=== PATIENT | male | born 1945 | race Caucasian/White ===

== ENCOUNTER 2024-08-20 17:53 | Inpatient (IN) | payer MEDICARE, OTHER, SELFPAY ==
[2024-08-20] VITALS (7 sets, daily range): BP systolic 146–178; BP diastolic 68–92; BMI 30.3; BMI 30.9
[2024-08-20 12:19] LABS: % Basophils 0.7 % (0-2); % Immature Granulocytes 0.4 % (0-0.5); % Lymphocytes 8.6 % (20.5-51.1); % Monocytes 8.1 % (1.7-9.3); % Neutrophils 78.2 % (42.2-75.2); Absolute Basophils 0.1 10^3/uL (0-0.2); Absolute Eosinophils 0.4 10^3/uL (0-0.7); Absolute Lymphocytes 0.9 10^3/uL (1.2-3.4); Absolute Monocytes 0.9 10^3/uL (0.1-0.6); Absolute Neutrophils 8.3 10^3/uL (1.4-6.5); Hematocrit 41.4 % (39.0-52.0); Hemoglobin 14.2 g/dL (13.0-18.0); Mean Corp Hgb Conc. 34.3 g/dL (33.0-37.0); Mean Corpuscular Hgb 33.8 pg (27.0-31.0); Mean Corpuscular Volume 98.6 fL (80.0-94.0); Mean Platelet Volume 9.8 fL (7.4-10.4); Nucleated Red Blood Cells % 0 % (-); Platelet Count 221 10^3/uL (130-400); Red Cell Dist. Width 13.3 % (11.5-14.5); White Blood Cell Count 10.6 10^3/uL (4.8-10.8)
[2024-08-20 12:26] LABS: ALT (SGPT) 20 U/L (0-50); AST (SGOT) 22 U/L (17-59); Albumin 4.2 g/dl (3.5-5.0); Alkaline Phosphatase 120 U/L (38-126); Blood Urea Nitrogen 14 mg/dl (9-20); Calcium 9.4 mg/dl (8.4-10.2); Carbon Dioxide 21 mmol/L (22-30); Chloride 106 mmol/L (98-107); Glucose 99 mg/dl (70-99); Sodium 140 mmol/L (135-145); Total Protein 6.7 g/dl (6.3-8.2); eGFR > 60.00
--- NOTE | 2024-08-20 14:10 | ED.GENMED ---
History of Present Illness
General
Chief Complaint: Skin Problem
Source: patient and spouse
Exam Limitations: none
Time Seen by Provider: 08/20/24 13:38
History of Present Illness
History of Present Illness:
79yoM with a history of prior CVA, hypertension, hyperlipidemia, and CLL presenting with his for evaluation of right foot and leg redness ongoing x 3 weeks. He has chronic R leg swelling. He started with drainage and redness around his R great
toe several weeks ago which has progressed to foot/lower leg redness. states that he is having intermittent blistering of the foot. Patient has been seen by his PCP several times for the same. He is currently on his third round of
antibiotics for his infection. He was initially placed on Augmentin which was followed by doxycycline/mupirocin. Antibiotics were switched to Levaquin 3 days ago based on a wound culture that grew out Enterobacter cloacae. He has had no
improvement on Levaquin and has taken 3 doses thus far. He was seen again by his PCP today who sent him to the ED for evaluation. Patient is otherwise asymptomatic and denies any fevers or chills.
Past History
Past History
ED Past Medical History: Cancer (CLL), CVA, HTN, Hypercholesterolemia and Hypothyroidism
ED Past Surgical History: Negative Cardiac
Social History
Tobacco: Non-smoker
Alcohol: None
Drug: None
Personal:
Living: with family
Employment: Retired
Family History
Family History: Other (Noncontributory)
Phy Exam
Physical Exam
Physical Exam:
Erythema and warmth noted throughout dorsum of R foot and anterior lower leg. Wound noted to the lateral aspect of the lower leg. No fluctuance or crepitus noted.
General Physical Exam
General Presentation: well appearing and no apparent distress
General age: appears stated age
General Skin: warm and dry
General Habitus: normal
General Mental: alert
ENT Exam
ENT Exam: normocephalic
Pulmonary Exam
Pulmonary Exam: no respiratory distress
Skin Exam
Skin Exam: warm/dry
Psychiatric Exam
Psychiatric Exam: normal mood/affect
Course
Orders/Labs/Results
Orders:
Orders
08/20/24 12:04
Complete Blood Count/With Diff Urgent
Comprehensive Metabolic Panel Urgent
08/20/24 14:03
Cefepime HCl [Maxipime] 2,000 mg IV NOW STA
CR Foot - Right Min 3 Views Urgent
Comment:
Reason For Exam: Redness, swelling
Venous Doppler Lwr Ext Rt [US Periph Venous LOWER Ext RT] Urgent
Comment:
Reason For Exam: R leg swelling
08/20/24 14:53
CRP [C-Reactive Protein] Urgent
ESR [Erythrocyte Sed Rate] Urgent
08/20/24 17:43
Admit/Transfer Patient As Directed
Co-Sign Provider:
Level of Care: Inpatient admission
Assign to:: Medical/Surgical
Physician / Group: murtaza
Diagnosis: left LE cellulitis
Reason for Hospitalization: left LE cellultis
Expected length of stay greater than two midnights?: Yes
ELOS- Estimated Length of Stay in days: 3
I certify the patient meets the requirements for IP care: Yes
PRN Pain Medication Management As Directed
May give lesser potent ordered pain med per pt: Yes
preference::
Protocol:: Medication orders for pain may be administered in a
manner that supports deferring to patient preference
when the pt is:
- Requesting an ordered lesser potent pain medication.
Least to most potent pain medications are defined
as: acetaminophen < NSAID < tramadol < opioids
(morphine, oxycodone, hydromorphone).
- Requesting a lesser dose of the same medication IF
ORDERED.
- Requesting a less intrusive route of administration
if both routes are prescribed by the provider (PO <
IV).
08/20/24 17:45
Code Status As Directed
Resuscitation Status: Full Code
08/20/24 17:51
PODIATRY CONSULT Routine
Consulting Provider: Nathaly Rollins
Was physician already notified: Yes
Abnormal Lab Results
08/20/24
12:04
RBC 4.20 L 10^6/uL
(4.70-6.10)
MCV 98.6 H fL
(80.0-94.0)
MCH 33.8 H pg
(27.0-31.0)
Absolute Neuts (auto) 8.3 H 10^3/uL
(1.4-6.5)
Absolute Lymphs (auto) 0.9 L 10^3/uL
(1.2-3.4)
Absolute Monos (auto) 0.9 H 10^3/uL
(0.1-0.6)
Neutrophils % 78.2 H %
(42.2-75.2)
Lymphocytes % 8.6 L %
(20.5-51.1)
Carbon Dioxide 21 L mmol/L
(22-30)
08/20/24 12:04
08/20/24 12:04
Vital Signs
Initial and Last Documented VS:
Initial Vital Signs
Temp Pulse Resp BP Pulse Ox
98.1 F 108 20 178/92 95
08/20/24 11:56 08/20/24 11:56 08/20/24 11:56 08/20/24 11:56 08/20/24 11:56
Last Documented Vital Signs
Temp Pulse Resp BP Pulse Ox
98.1 F 102 22 161/82 93
08/20/24 16:06 08/20/24 19:25 08/20/24 19:25 08/20/24 18:17 08/20/24 18:17
MDM/Problems Addressed
Differential Diagnosis Includes:
79yoM here with R foot/leg redness x 3 weeks. Has been on multiple rounds of abx without improvement. Currently on Levaquin x 3 days. Sent in by PCP. No f/c. He is afebrile and hemodynamically stable. He is well appearing in no distress. Erythema
and warmth noted on exam. RLE is neurovascularly intact. Differential diagnosis includes but is not limited to: cellulitis, osteomyelitis, DVT, no evidence of NSTI
Initial ED plan: Labs obtained in triage and white count is normal. Will check ESR/CRP, R foot x-rays, and venous duplex. IV cefepime ordered based on wound culture susceptibilities. He will require admission for failure of outpatient treatment.
*Critical Care Note
Total Time (30-74mins, 75-104mins- exclusive of procedures): Not Applicable
ED Attending Note
-
Portions of this chart may have been created with voice recognition software.� Occasional wrong word or��sound alike� substitutions may have occurred due to the inherent limitations of voice recognition software.
Discharge Plan
Departure
Patient Disposition: Admit
Date of Disposition: 08/20/24
Time of Disposition: 17:21
Presentation/result/management discussed w/ accepting MD/DO: Hospitalist
Discharge Problem:
Cellulitis of right foot
Interventions
Interventions:
*Risk Screen - Suicide Last Done: 08/20/24 14:54
*General Assessment Last Done: 08/20/24 14:54
*Neglect/Abuse Screening Last Done: 08/20/24 14:54
ED- Fall Risk Assessment Last Done: 08/20/24 16:39
*ED COVID-19 Vaccine History Last Done: 08/20/24 14:54
ED-Skin Assessment Last Done: 08/20/24 16:39
Discharge Date and Time
Discharge Date/Time: 08/20/24 19:59
[2024-08-20] MEDS: MAXIPIME 2000 MG IV ×2 (15:03→21:35)
[2024-08-20 15:29] LABS: Erythrocyte Sed Rate 9 mm/hour (0-20)
--- NOTE | 2024-08-20 16:06 | EDRN ---
EDT reported pt did not look well. Pt told this RN that he is nauseous and feels feverish. Pt shaking on the stretcher, unable to sit still. Oral temp=98.1. EDT placed pt on bedpan. EDT to move pt from #35 to #38. Jenna Hawley, CALENDERING SUPERVISOR informed.
--- NOTE | 2024-08-20 16:42 | EDRN ---
Pt's says he has had problems with RLE swelling/redness x 3 years. Pt has been on multiple abx past 3 weeks and doctor concerned pt is not improving and may need IV abx so pt came to ED. Pt does not ambulate. Pt denies cp, sob, abd pain, n/v
(now), fever/chills. Pt has chronic cough. Pt has naylor for approximately 1 year.
--- NOTE | 2024-08-20 17:22 | HPS.HSE ---
Addendum entered and electronically signed by Leeroy Garcia DO 08/20/24 18:01:
Patient seen and examined independently. Agree with findings and plan as set forth by ELZBIETA Brand.
Patient is a 79y M with PMH significant for R hemiparesis / prior CVA, chronic Barrios, hypertension and CLL who presents to ED complaining of R foot pain, swelling and redness for the past 3 weeks or so. Symptoms started with drainage around the
R great toe nail and have since spread to include the entire foot and extending above the ankle. Patient has been evaluated as an outpatient and taken multiple courses of abx in the past 3 weeks. Most recently changed to levofloxacin for
outpatient skin surface culture that reportedly grew Enterococcus. Despite abx treatment, his symptoms have not improved.
Patient has no systemic complaints, fevers / chills, etc.
Ass:
Right Foot Cellulitis - Failure of Outpatient Therapy
Onychololysis all nails
Chronic Venous Stasis Edema
ASCVD
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
CLL in Remission
Benign Hypertension
Iron Deficiency Anemia
Plan:
Admit for further evaluation and treatment.
IV abx with cefepime for now.
ID and Podiatry evaluations for additional recommendations.
Maintain Barrios.
Continue other usual outpatient medications.
Original Note:
Family Physician
-
Family Physician: ELZBIETA Jensen
Chief Complaint
-
right LE cellulitis
History of Present Illness
79yoM with a history of prior CVA, hypertension, hyperlipidemia, and CLL presenting with his for evaluation of right foot and leg redness ongoing x 3 weeks. He has chronic b/l Le edema. He started with a drainage and redness around his R great
toe several weeks ago which has progressed to foot/lower leg redness. states that he is having intermittent blistering of the foot. His stool was cultured by his PCP. patient has been on three different abx for past three weeks, with no
relief in his symptoms. Patient denied any headache, dizziness, syncopal episode patient denied any fever, chills, chest pain, short of breath. Patient denied any abdominal pain, nausea, vomiting, diarrhea. Patient denied dysuria hematuria.
Patient received IV cefepime in ER. Admitted for further management
Medical History
Past Medical History
Past Medical History: Reports Other
Additional Past Medical History:
DVT
Iron deficiency anemia
Hypertension
Chronic lymphocytic leukemia
Hyperlipidemia
CVA
Depression
Thyroid nodule
Past Surgical History: Reports Other
Additional Past Surgical History:
Cardiac stents
Carotid stent
Rectal hernia repair
Left knee procedure
Cataract surgery
TURP
Social History
Tobacco: Former Smoker
Alcohol: None
Drug: None
Personal:
Living: With Family
Family History
Family History: Not pertinent
Allergies / Home Medications
Allergies reflects when Allergies were last updated in [facility].
Home Medications with original date entered in [facility]
Allergy/Medication List:
Allergies
Allergy/AdvReac Type Severity Reaction Status Date / Time
No Known Allergies Allergy Verified 06/08/22 17:40
Home Medications
amlodipine 5 mg tablet 5 mg PO DAILY Blood pressure 08/01/21
aspirin 81 mg chewable tablet 81 mg PO DAILY Blood clot prevention/tx 08/01/21
lisinopril 10 mg tablet 10 mg PO DAILY Blood pressure 08/01/21
tamsulosin 0.4 mg capsule 0.4 mg PO DAILY Urinary issue 08/01/21
ferrous sulfate 325 mg (65 mg iron) tablet (Feosol) 325 mg PO DAILY Supplement 10/09/21
cetirizine 10 mg tablet (Zyrtec) 10 mg PO BID Allergies 06/08/22
potassium chloride 20 mEq tablet,extended release(part/cryst) (Klor-Con M) 40 meq (2 x 20 mEq) PO BID #30 tabs 06/15/22
atorvastatin 80 mg tablet 80 mg PO DAILY 08/27/22
acetaminophen 500 mg tablet (Tylenol Extra Strength) 1,000 mg PO HS 08/20/24
fluoxetine 40 mg capsule 40 mg PO DAILY 08/20/24
levofloxacin 750 mg tablet 750 mg PO HS 08/20/24
Review of Systems
-
Constitutional: Reports No Symptoms
EENT: Reports No Symptoms
Respiratory: Reports No Symptoms
Cardiac: Reports No Symptoms
Abdomen/GI: Reports No Symptoms
: Reports No Symptoms
Musculoskeletal: Reports Edema (Bilateral lower extremities)
Skin: Reports Other (Right lower extremity is red and swollen. wound on the lateral aspect of right wournd)
Neurological: Reports No Symptoms
Endocrine: Reports No Symptoms
Hematologic/Lymphatic: Reports No Symptoms
Psych: Reports No Symptoms
Physical Exam
Vital Signs
Vital Signs
Temp Pulse Resp BP Pulse Ox
98.1 F 102 24 149/79 99
08/20/24 16:06 08/20/24 16:38 08/20/24 16:38 08/20/24 16:38 08/20/24 14:54
Physical Exam
General: Well Developed, Well Nourished and No Apparent Distress
HEENT: NormoCephalic, Moist mucous membranes and Atraumatic
Respiratory: Clear
Cardiac: S1/S2 and Regular Rhythm; No Murmur or Rub
GI: Soft, Non Tender, Non Distended and Normal Bowel Sounds; No Organomegaly
Rectal: Deferred by Provider
Musculoskeletal: No Clubbing and No Cyanosis
Skin: Rash and Other (b/l LE eema. right LE redn, swollen with lateral wound of the right foot. )
Neuro: AO x 3 and Nonfocal/grossly intact
Psych: Calm
Laboratory Results
-
08/20/24 12:04
08/20/24 12:04
Laboratory Results
Total Bilirubin 1.0 mg/dl (0.2-1.3) 08/20/24 12:04
AST 22 U/L (17-59) 08/20/24 12:04
ALT 20 U/L (0-50) 08/20/24 12:04
Alkaline Phosphatase 120 U/L (38-126) 08/20/24 12:04
Data Reviewed
-
Lab Data: Labs Reviewed by me
Impression/Plan
-
# Right foot/leg redness and swelling likely cellulitis
-Failed outpatient antibiotic therapy
-Patient is afebrile
-IV cefepime continued
-Foot x-ray pending
-Duplex pending
-podiatry consult
#Suprapubic Catheter due to BPH s/p TURP�
-Flomax
#CLL in remission
# CVA with right hemiparesis
-Statin continued
# Iron deficiency anemia
-Ferrous sulfate continued
# Depression
-Fluoxetine continued
#Benign Hypertension�
- Stable.�
-Lisinopril and Norvasc continued with hold parameters
DVT Prophylaxis:�Lovenox subcu
Code Status:� Full
[2024-08-20] MEDS: KCL 40 MEQ PO (21:33)
[2024-08-20] MEDS: LOVENOX 40 MG SC (21:33)
[2024-08-20] MEDS: STERILE WATER FOR INJECTION 10 ML IV (21:35)
[2024-08-21] MEDS: STERILE WATER FOR INJECTION 10 ML IV ×3 (06:26→21:15)
[2024-08-21] MEDS: MAXIPIME 2000 MG IV ×3 (06:26→21:14)
[2024-08-21 07:20] LABS: Hemoglobin 12.8 g/dL (13.0-18.0); Mean Corp Hgb Conc. 34.6 g/dL (33.0-37.0); Mean Corpuscular Volume 98.1 fL (80.0-94.0); Mean Platelet Volume 10.6 fL (7.4-10.4); Platelet Count 200 10^3/uL (130-400); Red Blood Cell Count 3.77 10^6/uL (4.70-6.10); Red Cell Dist. Width 13.2 % (11.5-14.5); White Blood Cell Count 9.5 10^3/uL (4.8-10.8)
--- NOTE | 2024-08-21 07:35 | PTCARENOTE ---
~2346 Pt reported 'felt like I was drowning' and 'lasted about 5 minutes.' Pt reported it happened 'about 15 minutes ago.' Pt reported 'I feel fine now.' Pt's HOB was raised above 30 degree at the time pt had this feeling. Pt's HOB was raised above
30 degrees the entire shift. Pt denied SOB, difficulty breathing, chest pain, lightheadedness, and dizziness. VS: BP 145/75, HR 80, O2 93% on RA, Temp 98.0, and Resp rate 20. Notified SAND CUTTING MACHINE OPERATOR So Carmina Lamas (Linda). No new orders at this time. Per SAND CUTTING MACHINE OPERATOR,
report if pt reports feeling again. Pt instructed to report if feeling like drowning. Plan of care ongoing.
Pt denies feeling like they are drowning during the rest of the night. Instructions reinforced to report if feeling like drowning happens again. HOB remains raised. AM RN aware. Plan of care ongoing.
[2024-08-21 07:42] LABS: Blood Urea Nitrogen 11 mg/dl (9-20); Calcium 8.5 mg/dl (8.4-10.2); Carbon Dioxide 25 mmol/L (22-30); Chloride 105 mmol/L (98-107); Estimated Creatinine Clearance 102 ml/min; Glucose 84 mg/dl (70-99); Potassium 3.5 mmol/L (3.5-5.1); Sodium 140 mmol/L (135-145); eGFR > 60.00
[2024-08-21 07:48] VITALS: BP 140/67
[2024-08-21] MEDS: DESENEX/MITRAZOL/ZEASORB 1 APPLIC TOPICAL ×2 (08:02→21:13)
[2024-08-21] MEDS: FEOSOL 325 MG PO (08:03)
[2024-08-21] MEDS: LOW STRENGTH ASPIRIN 81 MG PO (08:03)
[2024-08-21] MEDS: KCL 40 MEQ PO ×2 (08:03→21:14)
[2024-08-21] MEDS: LIPITOR 80 MG PO (08:03)
[2024-08-21] MEDS: NORVASC 5 MG PO (08:09)
[2024-08-21] MEDS: FLOMAX 0.4 MG PO (08:09)
[2024-08-21] MEDS: PROZAC 40 MG PO (08:09)
[2024-08-21] MEDS: ZESTRIL 10 MG PO (08:09)
--- NOTE | 2024-08-21 09:56 | W.CS.POD ---
Consult Summary - Podiatry
-
Pt seen for right foot/ leg cellulitis . Pt feels much better and relates the cellulitis and swelling are reduced by over 50% since last night in ED. He has not seen his senior interactive producer in many months.
decrease in swelling in right foot, no ulcers ingrown nail right hallux lateral aspect
most likely source of cellulitis is plantar aspect of right hallux due to a healing fissure in skin and ingrown nail
x-rays negative for osteomyelitis
negative DVT
nails were debrided
recommend triple antibiotic ointment and bandaid on right great toe
f/u in office in 1 week
consult will be dictated
[2024-08-21 13:10] VITALS: BP 144/71; PULSE 83
--- NOTE | 2024-08-21 13:30 | W.PN.HOSP.TC ---
Today's Communication/Plan
-
continue abx for today
check a1c, MRSA screen pending
Assessment / Plan
Assessment / Plan
1. Right leg cellulitis
Presumed lymphedema and chronic LE edema
-Failed outpatient antibiotic therapy
-Patient is afebrile
-Foot x-ray did not show any osteo
-Le venous doppler neg
-Podiatry evaluated and help appreciated
-on cefepime - clinically better
-asked spouse to bring in superficial skin culture collected in PCP office, verbal report of having some growth
2 Suprapubic Catheter
BPH s/p TURP�
-no urinary complains
-gets periodic change
3. CLL in remission
-initially diagnosed after noted to have LNpathy in inguinal area
-has been in remission
4. H/o CVA
-Right sided UE paresis and flexure contracture
-bed bound and need assistance with ADL
CVA with right hemiparesis -Statin continued
Iron deficiency anemia -Ferrous sulfate continued
Depression -Fluoxetine continued
Benign Hypertension�-Lisinopril and Norvasc continued with hold parameters
DVT Prophylaxis:�Lovenox subcu
Code Status:� Full
Total time spent : 51 mins
Anticipated Discharge: 24 - 48 hours
Subjective/Interval History
-
Date of Service: August 21, 2024
afebrile
improved LE erythema/swelling
no other problems
Objective Data
-
Labs:
Laboratory Results
08/21/24
05:27
WBC 9.5
Hgb 12.8 L
Hct 37.0 L
Plt Count 200
Sodium 140
Potassium 3.5
Chloride 105
Carbon Dioxide 25
BUN 11
Creatinine 0.8
Glucose 84
Calcium 8.5
Vital Signs:
Vital Signs
Temp Pulse Resp BP Pulse Ox
98.1 F 90 20 140/67 92
08/21/24 07:48 08/21/24 08:09 08/21/24 07:48 08/21/24 08:09 08/21/24 07:48
I&O
08/20/24 08/21/24 08/22/24
06:59 06:59 06:59
Intake Total 60 / 60
Output Total 4250 / 4250
Balance -4190 / -4190
Review of Systems
-
Respiratory: Reports No Symptoms
Cardiac: Reports No Symptoms
Abdomen/GI: Reports No Symptoms
Physical Exam
-
HEENT: Negative Oxygen
Respiratory: Clear to Auscultation; Negative Wheezes or Rhonchi
Cardiac: Regular Rhythm and S1/S2; Negative Murmur
GI: Soft, Nontender and Nondistended
Musculoskeletal: Edema, Right Lower Extrem, Edema, Left Lower Extrem and Other (Erythema upto mid leg level, dry scaling skin)
Neuro: Awake, Alert and Other (RUE paresis and flexion contracture, RLE weakness)
Psych: Calm
--- NOTE | 2024-08-21 15:46 | CM ---
CM met with pt and spouse
They resides in a [place] with ramp entrance with son,DIL and 8 y/o grandson
Pt is non ambulatory, WC bound
He is able to stand and pivot with a 1 person assist
R sided weakness, not able to propel
Requires feeding and personal care due to limited use of R arm/hands
Pt has a chronic suprapubic cath
[facility] changes monthly
No financial insecurities
PCP- Tonya Andersen
Rx- [facility]
Discharge Disposition- home with [facility]
[2024-08-21 16:00] VITALS: BP 113/68
[2024-08-21] MEDS: LOVENOX 40 MG SC (17:06)
[2024-08-21 22:43] VITALS: BP 143/65
[2024-08-22] MEDS: STERILE WATER FOR INJECTION 10 ML IV (05:42)
[2024-08-22] MEDS: MAXIPIME 2000 MG IV (05:44)
[2024-08-22 07:59] LABS: Hematocrit 38.7 % (39.0-52.0); Hemoglobin 13.2 g/dL (13.0-18.0); Mean Corp Hgb Conc. 34.1 g/dL (33.0-37.0); Mean Corpuscular Hgb 33.8 pg (27.0-31.0); Mean Platelet Volume 10.5 fL (7.4-10.4); Platelet Count 199 10^3/uL (130-400); Red Blood Cell Count 3.91 10^6/uL (4.70-6.10); Red Cell Dist. Width 13.6 % (11.5-14.5); White Blood Cell Count 7.6 10^3/uL (4.8-10.8)
[2024-08-22 08:00] VITALS: BP 169/85
[2024-08-22 08:22] LABS: Glycohemoglobin (HgbA1c) 5.3 % (4.0-5.6)
[2024-08-22 08:26] LABS: Blood Urea Nitrogen 15 mg/dl (9-20); Calcium 8.5 mg/dl (8.4-10.2); Carbon Dioxide 25 mmol/L (22-30); Chloride 105 mmol/L (98-107); Estimated Creatinine Clearance 90 ml/min; Glucose 90 mg/dl (70-99); Potassium 4.1 mmol/L (3.5-5.1); Sodium 139 mmol/L (135-145); eGFR > 60.00
--- NOTE | 2024-08-22 08:58 | VNURNOTE ---
Chart reviewed. Patient is current with [facility] nursing. Will continue to follow hospital course and DC plans.
[2024-08-22] MEDS: DESENEX/MITRAZOL/ZEASORB 1 APPLIC TOPICAL ×2 (09:28→19:30)
[2024-08-22] MEDS: PROZAC 40 MG PO (09:32)
[2024-08-22] MEDS: LIPITOR 80 MG PO (09:33)
[2024-08-22] MEDS: KCL 40 MEQ PO ×2 (09:33→19:30)
[2024-08-22] MEDS: ZESTRIL 10 MG PO (09:34)
[2024-08-22] MEDS: NORVASC 5 MG PO (09:34)
[2024-08-22] MEDS: LOW STRENGTH ASPIRIN 81 MG PO (09:35)
[2024-08-22] MEDS: FEOSOL 325 MG PO (09:35)
[2024-08-22] MEDS: FLOMAX 0.4 MG PO (09:35)
--- NOTE | 2024-08-22 12:25 | CM ---
manager programming reviewed patient's chart and plan is to home with [facility].
Plan; Home with [facility].
[2024-08-22] MEDS: AMOXIL 500 MG PO ×2 (13:40→22:39)
--- NOTE | 2024-08-22 14:41 | W.PN.HOSP.TC ---
Today's Communication/Plan
-
Switch to oral antibiotics
Assessment / Plan
Assessment / Plan
Impression
A 79 year old male, with past medical history of hypertension, stroke(residual right sided hemiparesis), BPH(s/p TURP) chronic naylor due to MERRITT,and CLL(remission), admitted for cellulitis of Right foot unresponsive to outdoor medications.
Assessment
Right leg cellulitis
Suprapubic Catheter secondary to BPH/MERRITT
CLL in remission
H/o CVA
Plan
Right leg cellulitis
-Foot x-ray did not show any osteomyelitis
-Leg venous doppler showed no deep venous thrombosis
-Podiatry evaluated and help appreciated
-No MRSA detected through nasal swab
-started on oral antibiotics today(amoxicillin and doxicycline)
-
Suprapubic Catheter secondary to BPH/MERRITT
BPH s/p TURP�
-no urinary complains
-gets periodic change
CLL in remission
Treated 2 years ago with chemotherapy
in remission
has 6 monthly follow-Up
H/o CVA
Needs assistance with activities of daily living
CVA with right hemiparesis -Statin continued
Iron deficiency anemia -Ferrous sulfate continued
Depression -Fluoxetine continued
Benign Hypertension�-Lisinopril and Norvasc continued with hold parameters
DVT Prophylaxis:�Lovenox subcutaneously
Code Status:� Full
Anticipated Discharge: 24 - 48 hours
Subjective/Interval History
-
Date of Service: August 22, 2024
Patient feels his le swelling has improved by 75 percent. He feels well and has no active issues
Objective Data
-
Labs:
Laboratory Results
08/22/24
07:01
WBC 7.6
Hgb 13.2
Hct 38.7 L
Plt Count 199
Sodium 139
Potassium 4.1
Chloride 105
Carbon Dioxide 25
BUN 15
Creatinine 0.9
Glucose 90
Calcium 8.5
Vital Signs:
Vital Signs
Temp Pulse Resp BP Pulse Ox
97.8 F 81 18 169/85 92
08/22/24 08:00 08/22/24 08:00 08/22/24 08:00 08/22/24 08:00 08/22/24 08:00
I&O
08/21/24 08/22/24 08/23/24
06:59 06:59 06:59
Intake Total 60 / 60 1320 / 1320
Output Total 4250 / 4250 1900 / 1900
Balance -4190 / -4190 -580 / -580
Review of Systems
-
All other systems: Reviewed and negative
Physical Exam
-
General: Well Developed, Well Nourished and No Apparent Distress
HEENT: Normocephalic, Atraumatic and Other
Respiratory: Clear to Auscultation and Crackles
Cardiac: Regular Rhythm and S1/S2
GI: Soft, Nontender and Normal Bowel Sounds
Genito-urinary: No Costovertebral Tender and Naylor (chronic naylor in place for MERRITT secondary to BPH)
Musculoskeletal: Edema, Right Upper Extrem, Edema, Left Upper Extrem and Other (cellulitis involving both feet, right more than left )
Skin: Other (onycholysis of all nails)
Neuro: Awake, Alert and No Motor Deficits (Right sided hemiparesis secondary to cerebrovascular infarct)
Hematologic / Lymphatic: No Lymphadenopathy
Psych: Calm
--- NOTE | 2024-08-22 14:47 | W.PN.UPDATE ---
Update Note
Progress Note Update
I saw and evaluated the patient. I reviewed the resident�s note and agree with findings and plan as documented in the resident�s note.
RLE swelling is better
afebrile in night
1. Right leg cellulitis
Presumed lymphedema and chronic LE edema
-Failed outpatient antibiotic therapy
-Patient is afebrile
-Foot x-ray did not show any osteo
-Le venous doppler neg
-Podiatry evaluated and help appreciated
-asked spouse to bring in superficial skin culture collected in PCP office, verbal report of having some growth
-Change abx to amxoicllin+doxycycline and monitor overnight
2 Suprapubic Catheter
BPH s/p TURP�
-no urinary complains
-gets periodic change
3. CLL in remission
-initially diagnosed after noted to have LNpathy in inguinal area
-has been in remission
4. H/o CVA
-Right sided UE paresis and flexure contracture
-bed bound and need assistance with ADL
CVA with right hemiparesis -Statin continued
Iron deficiency anemia -Ferrous sulfate continued
Depression -Fluoxetine continued
Benign Hypertension�-Lisinopril and Norvasc continued with hold parameters
DVT Prophylaxis:�Lovenox subcu
Code Status:� Full
[2024-08-22 15:00] VITALS: BP 137/72
--- NOTE | 2024-08-22 15:46 | VNURNOTE ---
Spoke with spouse Mrs Jeffrey. Confirmed she and pt would like to resume [facility] upon DC. Resumption referral placed in [facility].
--- NOTE | 2024-08-22 16:36 | W.DCSUMMARY ---
Discharge Summary
Discharge Data
Date of Admission: 08/20/24
Date of Discharge: 08/23/24
-
Pending Results: No
Hospital Course
Discharging Physician : Farhat Mckee, Dr. Brown
Principal Discharge diagnosis :
Right Foot Cellulitis possibly secondary to chronic lymphedema/venous stasis/Right big toe infection/ ingrown nail right
great toe, fissure right great toe.
Onycholysis all nails
Chronic Discharge diagnosis :
Chronic Venous Stasis Edema
ASCVD
Residual right Hemiparesis of CVA
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
CLL in Remission
Benign Hypertension
Iron Deficiency Anemia
Hospital Course :
Patient is a 79y M with PMH significant for R hemiparesis / prior CVA, chronic Barrios, hypertension and CLL who presented to ED complaining of R foot pain, swelling and redness for the past 3 weeks,progressively getting worse,started from big toe
and then involved right foot and lower leg.the most likely source of cellulitis is plantar aspect of right hallux due to a healing fissure in skin and ingrown nail . Patient complained of bilateral calf tenderness He had an x-ray of knee that ruled
out bone involvement and a doppler ultrasound that ruled out deep venous thrombosis.Patient responded well to IV antibiotics and the swelling reduced significantly over the next three days. The manager quality treated onycholysis,advised to continue
antibiotics and scheduled follow-up in one week.
Important imaging findings :
x-rays negative for osteomyelitis
Peripheral vascular ultrasound
IMPRESSION: No evidence of deep venous thrombosis of the right lower extremity.
Procedure findings :
Form Stripper did debridement of all nails. Removed the ingrown nail
from the right lateral border of the great toe.
RECOMMENDATIONS: Triple antibiotic ointment and a band-aid to the
right great toe.
Discharge Plan
-
Patient Disposition: Home (Routine Discharge)
Discharge Diagnosis/Procedures: Right leg cellulitis
Condition: Fair
Diet: Low Sodium
Driving Restrictions: As prior to admission
Bathing Restrictions: OK to Shower
Referrals:
Tonya Andersen CRNP [Family Provider] -
Nathaly Rollins DPM [Specified Professional Personl] - in one week
Prescriptions:
New
amoxicillin 500 mg Capsule
500 mg PO Q8H Qty: 12 0RF
doxycycline hyclate 100 mg Capsule
100 mg PO Q12 Qty: 8 0RF
tramadol 25 mg tablet
25 mg PO BIDPRN PRN (Reason: mod sev pain) Qty: 10 0RF
Continued
amlodipine 5 MG tablet
5 mg PO DAILY
tamsulosin 0.4 MG capsule
0.4 mg PO DAILY
lisinopril 10 MG tablet
10 mg PO DAILY
aspirin 81 MG tablet,chewable
81 mg PO DAILY
ferrous sulfate [Feosol] 325 MG tablet
325 mg PO DAILY
cetirizine [Zyrtec] 10 mg Tablet
10 mg PO BID
potassium chloride [Klor-Con M20] 20 mEq Tablet,Er Particles/Crystals
40 meq PO BID Qty: 30 0RF
atorvastatin 80 mg Tablet
80 mg PO DAILY
fluoxetine 40 mg Capsule
40 mg PO DAILY
acetaminophen [Tylenol Extra Strength] 500 mg Tablet
1,000 mg PO HS
Discontinued
levofloxacin 750 mg Tablet
750 mg PO HS
Discharge Orders:
Discharge Patient (As Directed); Ordered 08/23/24
Ordered By: Farhat Saavedra
Discharge Date and Time
Print Language: LUXEMBOURGISH
[2024-08-22] MEDS: LOVENOX 40 MG SC (17:02)
[2024-08-22] MEDS: VIBRAMYCIN 100 MG PO (19:30)
[2024-08-22 21:21] LABS: Hepatitis C Antibody Negative (Negative)
[2024-08-22 23:00] VITALS: BP 135/70
[2024-08-23] MEDS: AMOXIL 500 MG PO ×2 (05:38→13:36)
[2024-08-23 07:05] VITALS: BP 147/69
[2024-08-23 07:55] LABS: Hematocrit 38.1 % (39.0-52.0); Hemoglobin 13.1 g/dL (13.0-18.0); Mean Corp Hgb Conc. 34.4 g/dL (33.0-37.0); Mean Corpuscular Hgb 33.9 pg (27.0-31.0); Mean Corpuscular Volume 98.7 fL (80.0-94.0); Mean Platelet Volume 10.3 fL (7.4-10.4); Platelet Count 199 10^3/uL (130-400); Red Blood Cell Count 3.86 10^6/uL (4.70-6.10); Red Cell Dist. Width 13.3 % (11.5-14.5); White Blood Cell Count 7.9 10^3/uL (4.8-10.8)
--- NOTE | 2024-08-23 07:57 | W.PN.HOSP.TC ---
Addendum entered and electronically signed by Farhat Saavedra MD 08/24/24 17:15:
In response to CDI query;
Sepsis - POA - improved
Addendum entered and electronically signed by Farhat Saavedra MD 08/23/24 15:39:
I saw and evaluated the patient. I reviewed the resident�s note and agree with findings and plan as documented in the resident�s note.
Right leg cellulitis -discharge on oral amoxicillin/doxycycline for another 4 days (total 7 Days) . Advised to do lower extremity compression with Joshua wrapping/leg elevation to help chronic venous stasis dermatitis. Superficial barrier cream
application advised as well
Nausea -patient feeling nauseous with oral doxycycline, recommended to finish course if possible although can stop if symptoms persist
Discharge home with f/u with PCP
Original Note:
Today's Communication/Plan
-
-Continue doxicycline and amoxicillin for cellulitis
-check serum potassium and magnesium
- If normal,can discharge the patient today
-follow-up with firer locomotive crane in one week
Assessment / Plan
Assessment / Plan
Impression
A 79 year old male, with past medical history of hypertension, stroke(residual right sided hemiparesis), BPH(s/p TURP) chronic naylor due to MERRITT,and CLL(remission), admitted for cellulitis of Right foot unresponsive to outdoor medications.
Assessment
Right leg cellulitis
Suprapubic Catheter secondary to BPH/MERRITT
CLL in remission
H/o CVA
Plan
Right leg cellulitis without DVT or bone involvement
-complains of pain in both legs
-check serum potassium and magnesium
-Foot x-ray did not show any osteomyelitis
-Leg venous doppler showed no deep venous thrombosis
-Podiatry evaluated and help appreciated
-No MRSA detected through nasal swab
-Discontinue iV cefepime
-started on oral antibiotics today(amoxicillin and doxicycline)
-monitor wbc and temperature charting
-
Suprapubic Catheter secondary to BPH/MERRITT
BPH s/p TURP�
-no urinary complains
-gets periodic change by visiting nurse at home
CLL in remission
Treated 2 years ago with chemotherapy
in remission
has 6 monthly follow-Up
H/o CVA
Needs assistance with activities of daily living
CVA with right hemiparesis -Statin continued
Iron deficiency anemia -Ferrous sulfate continued
Depression -Fluoxetine continued
Benign Hypertension�-Lisinopril and Norvasc continued with hold parameters
DVT Prophylaxis:�Lovenox subcutaneously
Code Status:� Full
Anticipated Discharge: Within 24 hours
Subjective/Interval History
-
Date of Service: August 23, 2024
Complains of bilateral muscle pain in both legs.Patient feels that the swelling, redness and pain has improved significantly
Objective Data
-
Labs:
Laboratory Results
08/23/24
06:45
WBC 7.9
Hgb 13.1
Hct 38.1 L
Plt Count 199
Sodium Pending
Potassium Pending
Chloride Pending
Carbon Dioxide Pending
BUN Pending
Creatinine Pending
Glucose Pending
Calcium Pending
Vital Signs:
Vital Signs
Temp Pulse Resp BP Pulse Ox
97.7 F 83 18 147/69 95
08/23/24 07:05 08/23/24 07:05 08/23/24 07:05 08/23/24 07:05 08/23/24 07:05
I&O
08/22/24 08/23/24 08/24/24
06:59 06:59 06:59
Intake Total 1320 / 1320 710 / 710
Output Total 1900 / 1900 1725 / 1725
Balance -580 / -580 -1015 / -1015
Review of Systems
-
All other systems: Reviewed and negative
Physical Exam
-
General: Well Developed, Well Nourished, No Apparent Distress, Conversant and Other (needs help in ADL as residual right sided hemparesis from stroke)
HEENT: Normocephalic, Atraumatic and Moist Mucous Membranes
Respiratory: Clear to Auscultation
Cardiac: Regular Rhythm and S1/S2
GI: Soft, Nontender and Normal Bowel Sounds
Genito-urinary: No Costovertebral Tender
Musculoskeletal: No Clubbing, No Cyanosis, Edema, Right Lower Extrem, Edema, Left Lower Extrem and Other (redness and swelling of both feet right greater than left,onycholysis)
Neuro: Awake, Alert, Oriented and Other (right arm and leg hemiparesis)
Hematologic / Lymphatic: No Lymphadenopathy
[2024-08-23 08:33] LABS: Blood Urea Nitrogen 12 mg/dl (9-20); Calcium 8.4 mg/dl (8.4-10.2); Carbon Dioxide 24 mmol/L (22-30); Chloride 106 mmol/L (98-107); Estimated Creatinine Clearance 102 ml/min; Glucose 90 mg/dl (70-99); Sodium 140 mmol/L (135-145); eGFR > 60.00
[2024-08-23] MEDS: KCL 40 MEQ PO (08:50)
[2024-08-23] MEDS: FLOMAX 0.4 MG PO (08:50)
[2024-08-23] MEDS: VIBRAMYCIN 100 MG PO (08:50)
[2024-08-23] MEDS: FEOSOL 325 MG PO (08:51)
[2024-08-23] MEDS: LIPITOR 80 MG PO (08:52)
[2024-08-23] MEDS: NORVASC 5 MG PO (08:52)
[2024-08-23] MEDS: PROZAC 40 MG PO (08:52)
[2024-08-23] MEDS: LOW STRENGTH ASPIRIN 81 MG PO (08:52)
[2024-08-23] MEDS: ZESTRIL 10 MG PO (08:52)
[2024-08-23] MEDS: DESENEX/MITRAZOL/ZEASORB 1 APPLIC TOPICAL (08:53)
--- NOTE | 2024-08-23 09:59 | PN.CDI ---
CDI
- -
CDI:
Physician Documentation Request
Admit Date: 08/20/24 17:53
Dear Doctor Quentin,
Please review the following and provide your response in the progress notes.
Clinical Indicators:
Pt admitted with Right leg cellulitis
Documented per ED, ' He is currently on his third round of antibiotics for his infection. He was initially placed on Augmentin which was followed by doxycycline/mupirocin. Antibiotics were switched to Levaquin 3 days ago based on a wound culture
that grew out Enterobacter cloacae....He has had no improvement on Levaquin and has taken 3 doses thus far. ...'
On admission HR 108, Respirations 24/ Was on Cefepime switch to Amoxicillin/Doxycycline
Please clarify which of the following most accurately describes the status of the patient's infection:
Sepsis-POA
- Systemic manifestations of infection, with 2 or more SIRS criteria which include:
- Fever >100.4 degrees F or hypothermia < 96.8 degrees F
- Leukocytosis - WBC > 12,000 or leukopenia - WBC < 4,000 or > 10% bands
- Tachycardia > 90 beats per minute
- Tachypnea - RR > 20 breaths per minute or PaCO2 , 32mmHg
Source: Merck Manual 2013
Right LE cellulitis only , Without Systemic Illness
Other
Use of terms such as suspected, likely, concern for, or probable (associated with a specific diagnosis that is being evaluated, monitored, or treated as if it exists) are acceptable and can be coded in the inpatient setting, when documented at the
time of discharge.
Thank you,
Nelly Montejo RN
CDI Specialist
[employer]
Please use your independent medical judgment in providing your response.
--- NOTE | 2024-08-23 10:13 | CM ---
Addendum entered by Pauline Diego 08/23/24 14:43:
Long conversation with patient and spouse and plan is to home, per physician patient has been cleared for discharge today.
Plan; Home with [facility].
Addendum entered by Pauline Diego 08/23/24 10:55:
Per notes patient has family supports caregiver services in home along with [facility], bilingual case manager spoke with physical therapy who feel patient may benefit from rehab, bilingual case manager spoke with patient regarding rehab and left a message for patient's
spouse regarding possible rehab for patient.
Original Note:
Chart reviewed and bilingual case manager will follow for any needs at discharge [facility]. Patient lives with spouse and has [facility] in home.
Plan; Home with [facility] when stable.
[2024-08-23 10:54] VITALS: BP 128/73; O2SAT 95
[2024-08-23 12:44] LABS: Magnesium 1.9 mg/dl (1.6-2.3); Phosphorus 2.9 mg/dl (2.5-4.5)
[2024-08-23] MEDS: FLUAD (65 yr+) 2024-2025 FORMULA 0.5 ML IM (14:51)
[2024-08-23 15:26] VITALS: BP 150/75
== END 2024-08-23 16:02 | disposition home health service (06) | DRG 872 ==
LOC: 4 WEST ACU 17:53
PROVIDERS: Emergency Medicine; Physician Assistant; Registered Nurse; ADMITTING PHYSICIAN Hospitalist; ATTENDING PHYSICIAN Hospitalist; CONSULT PHYSICIAN Podiatrist; EMERGENCY PHYSICIAN Emergency Medicine; FAMILY PHYSICIAN Nurse Practitioner
PROC: 0HBRXZZ Excision of Toe Nail, External Approach (ICD-10-PCS; 2024-08-21)
PROC: 0HDRXZZ Extraction of Toe Nail, External Approach (ICD-10-PCS; 2024-08-21)
DX: A41.9 Sepsis, unspecified organism (principal); L03.115 Cellulitis of right lower limb; C91.11 Chronic lymphocytic leukemia of B-cell type in remission; I69.351 Hemiplegia and hemiparesis following cerebral infarction affecting right dominant side; N13.8 Other obstructive and reflux uropathy; I10 Essential (primary) hypertension; L60.1 Onycholysis; I87.8 Other specified disorders of veins; D50.9 Iron deficiency anemia, unspecified; N40.1 Benign prostatic hyperplasia with lower urinary tract symptoms; E78.00 Pure hypercholesterolemia, unspecified; L60.0 Ingrowing nail; I25.10 Atherosclerotic heart disease of native coronary artery without angina pectoris; F32.A Depression, unspecified; E04.1 Nontoxic single thyroid nodule; E03.9 Hypothyroidism, unspecified; I89.0 Lymphedema, not elsewhere classified; Z96.0 Presence of urogenital implants; Z95.5 Presence of coronary angioplasty implant and graft; Z95.828 Presence of other vascular implants and grafts; Z87.891 Personal history of nicotine dependence; Z79.82 Long term (current) use of aspirin; Z79.899 Other long term (current) drug therapy; Z79.2 Long term (current) use of antibiotics
CPT/HCPCS: 73630; 80048; 80053; 83036; 83735; 84100; 85025; 85027; 85652; 86140; 86803; 87070; 90662; 93971; 96374; 97162; 97530; 99285; G0008

== ENCOUNTER 2024-08-26 19:15 | Inpatient (IN) | payer MEDICARE, OTHER, SELFPAY ==
[2024-08-26 14:49] VITALS: BP 139/72
[2024-08-26 15:04] LABS: % Basophils 0.9 % (0-2); % Eosinophils 10.4 % (0-6); % Immature Granulocytes 0.1 % (0-0.5); % Lymphocytes 15.1 % (20.5-51.1); % Monocytes 11.7 % (1.7-9.3); % Neutrophils 61.8 % (42.2-75.2); Absolute Basophils 0.1 10^3/uL (0-0.2); Absolute Eosinophils 0.8 10^3/uL (0-0.7); Absolute Lymphocytes 1.1 10^3/uL (1.2-3.4); Absolute Monocytes 0.9 10^3/uL (0.1-0.6); Absolute Neutrophils 4.6 10^3/uL (1.4-6.5); Hematocrit 41.8 % (39.0-52.0); Hemoglobin 13.9 g/dL (13.0-18.0); Mean Corp Hgb Conc. 33.3 g/dL (33.0-37.0); Mean Corpuscular Hgb 32.5 pg (27.0-31.0); Mean Corpuscular Volume 97.7 fL (80.0-94.0); Nucleated Red Blood Cells % 0 % (-); Platelet Count 241 10^3/uL (130-400); Red Blood Cell Count 4.28 10^6/uL (4.70-6.10); Red Cell Dist. Width 13.8 % (11.5-14.5); White Blood Cell Count 7.4 10^3/uL (4.8-10.8)
[2024-08-26 15:38] LABS: ALT (SGPT) 28 U/L (0-50); AST (SGOT) 27 U/L (17-59); Albumin 4.1 g/dl (3.5-5.0); Alkaline Phosphatase 101 U/L (38-126); Blood Urea Nitrogen 25 mg/dl (9-20); Calcium 9.2 mg/dl (8.4-10.2); Carbon Dioxide 20 mmol/L (22-30); Chloride 108 mmol/L (98-107); Glucose 114 mg/dl (70-99); Potassium 4.9 mmol/L (3.5-5.1); Sodium 141 mmol/L (135-145); Total Bilirubin 0.7 mg/dl (0.2-1.3); Total Protein 6.6 g/dl (6.3-8.2); eGFR > 60.00
--- NOTE | 2024-08-26 17:24 | ED.GENMED ---
History of Present Illness
<Jesus Palm MD, Resident - Last Filed: 08/26/24 19:22>
General
Chief Complaint: Skin Problem
Source: patient and significant other
Time Seen by Provider: 08/26/24 17:08
Travel History
Have you traveled to any high risk areas for coronavirus over the past 14 days?: No
Have you had any contact with someone who has COVID-19?: No
Do you have any symptoms of coronavirus? Fever > 100 degrees, chills, cough, shortness of breath, sore throat, loss of taste or smell, muscle aches, or headache?: No
History of Present Illness
History of Present Illness:
Viktor Richey, 79-year-old male with chronic LE lymphedema secondary to RLE lymph nodes resection for CLL in remission and recent hospitalization of RLE cellulitis, is here with worsening RLE erythema, swelling, pain and tenderness. His
symptoms began in early August with drainage and redness around right great toe, which progressed to lower leg redness and tenderness. Of note, he has a history of MRSA cellulitis in his great toe. He was seen by his primary, who tried 3 courses of
antibiotics, starting with amoxicillin-clavulanate then doxycycline then levofloxacin. His symptoms did not improve and continued to get worse. He came to the emergency on 08-20-24 and was treated with cefepime. Discharged on 08-22-24 to complete a
second course of amoxicillin-clavulanate. The tenderness, erythema and swelling progressed since his discharge, and was very tender to touch today. Pain with movement. Visiting nurse saw him today and advised the patient to go to the hospital.
Past History
<Jesus Palm MD, Resident - Last Filed: 08/26/24 19:22>
Past History
ED Past Medical History: Cancer (CLL), CVA, HTN, Hypercholesterolemia, Hypothyroidism and Other (MRSA infection)
Social History
Tobacco: Non-smoker
Alcohol: None
Drug: None
Personal:
Living: with family
Employment: Retired
Family History
Family History: Other (Noncontributory)
Review of Systems
<Jesus Palm MD, Resident - Last Filed: 08/26/24 19:22>
Review of Systems
All Other Systems: ROS reviewed and negative except as documented in HPI and ROS
Phy Exam
<Jesus Palm MD, Resident - Last Filed: 08/26/24 19:22>
General Physical Exam
General Presentation: well appearing and no apparent distress
General Skin: warm and dry
General Habitus: normal
General Mental: alert
General Hydration: appears well hydrated
ENT Exam
ENT Exam: EOMI, pharynx normal, neck supple and normocephalic
Eye Exam
Eye Exam: PERRL, cornea clear and conjunctiva normal
Cardiovascular Exam
Cardiovascular Exam: regular rate/rhythm, no edema, no murmur and normal peripheral pulses
Pulmonary Exam
Pulmonary Exam: lungs clear, no respiratory distress, no rales, no crackles, no rhonchi, no stridor, no wheezing and no cough
Gastrointestinal Exam
Gastrointestinal Exam: normal bowel sounds, non tender, soft, no organomegaly, no pulsatile mass and non distended
Neurological Exam
Neurological Exam: alert, oriented x3, no motor deficits and speech normal
Musculoskeletal Exam
Musculoskeletal Exam: edema and other (right lower extremity erythema, swelling, tenderness extending from dorsum of foot to anterior lower leg)
Skin Exam
Skin Exam: normal color, warm/dry, no rash and no petechia
Psychiatric Exam
Psychiatric Exam: normal mood/affect
Course
<Jesus Palm MD, Resident - Last Filed: 08/26/24 19:22>
Orders/Labs/Results
Orders:
Orders
08/26/24 14:56
CBC/With Diff [Complete Blood Count/With Diff] Urgent
CMP [Comprehensive Metabolic Panel] Urgent
08/26/24 17:26
US Periph Venous LOWER Ext RT Urgent
Comment:
Reason For Exam: RLE erythema, pain and swelling
08/26/24 17:38
Ketorolac [Toradol] 15 mg IV NOW STA
08/26/24 18:09
Acetaminophen [Tylenol] 650 mg PO NOW STA
08/26/24 18:12
Lactate Level [Lactic Acid] Urgent
Blood Culture Urgent
DYLAN Source: Blood/Venous
Specimen Description:
08/26/24 18:14
Admit/Transfer Patient As Directed
Co-Sign Provider:
Level of Care: Inpatient admission
Assign to:: Medical/Surgical
Physician / Group: [facility]
Diagnosis: Recurrent RLE cellulitis
Reason for Hospitalization: IV antibiotics, ID consult
Expected length of stay greater than two midnights?: Yes
ELOS- Estimated Length of Stay in days: 3
I certify the patient meets the requirements for IP care: Yes
PRN Pain Medication Management As Directed
May give lesser potent ordered pain med per pt: Yes
preference::
Protocol:: Medication orders for pain may be administered in a
manner that supports deferring to patient preference
when the pt is:
- Requesting an ordered lesser potent pain medication.
Least to most potent pain medications are defined
as: acetaminophen < NSAID < tramadol < opioids
(morphine, oxycodone, hydromorphone).
- Requesting a lesser dose of the same medication IF
ORDERED.
- Requesting a less intrusive route of administration
if both routes are prescribed by the provider (PO <
IV).
08/26/24 18:17
Code Status As Directed
Resuscitation Status: Full Code
Abnormal Lab Results
08/26/24
14:56
RBC 4.28 L 10^6/uL
(4.70-6.10)
MCV 97.7 H fL
(80.0-94.0)
MCH 32.5 H pg
(27.0-31.0)
Absolute Lymphs (auto) 1.1 L 10^3/uL
(1.2-3.4)
Absolute Monos (auto) 0.9 H 10^3/uL
(0.1-0.6)
Absolute Eos (auto) 0.8 H 10^3/uL
(0-0.7)
Lymphocytes % 15.1 L %
(20.5-51.1)
Monocytes % 11.7 H %
(1.7-9.3)
Eosinophils % 10.4 H %
(0-6)
Chloride 108 H mmol/L
(98-107)
Carbon Dioxide 20 L mmol/L
(22-30)
BUN 25 H mg/dl
(9-20)
Glucose 114 H mg/dl
(70-99)
08/26/24 14:56
08/26/24 14:56
Vital Signs
Initial and Last Documented VS:
Initial Vital Signs
Temp Pulse Resp BP Pulse Ox
98.3 F 93 19 139/72 96
08/26/24 14:49 08/26/24 14:49 08/26/24 14:49 08/26/24 14:49 08/26/24 14:49
Last Documented Vital Signs
Temp Pulse Resp BP Pulse Ox
98.3 F 80 21 155/67 95
08/26/24 14:49 08/26/24 18:30 08/26/24 18:30 08/26/24 18:02 08/26/24 18:30
<Byron Arias, DO - Last Filed: 08/26/24 17:39>
Orders/Labs/Results
Orders:
Orders
08/26/24 14:56
CBC/With Diff [Complete Blood Count/With Diff] Urgent
CMP [Comprehensive Metabolic Panel] Urgent
08/26/24 17:26
US Periph Venous LOWER Ext RT Urgent
Comment:
Reason For Exam: RLE erythema, pain and swelling
08/26/24 17:38
Ketorolac [Toradol] 15 mg IV NOW STA
08/26/24 18:09
Acetaminophen [Tylenol] 650 mg PO NOW STA
08/26/24 18:12
Lactate Level [Lactic Acid] Urgent
Blood Culture Urgent
DYLAN Source: Blood/Venous
Specimen Description:
08/26/24 18:14
Admit/Transfer Patient As Directed
Co-Sign Provider:
Level of Care: Inpatient admission
Assign to:: Medical/Surgical
Physician / Group: [facility]
Diagnosis: Recurrent RLE cellulitis
Reason for Hospitalization: IV antibiotics, ID consult
Expected length of stay greater than two midnights?: Yes
ELOS- Estimated Length of Stay in days: 3
I certify the patient meets the requirements for IP care: Yes
PRN Pain Medication Management As Directed
May give lesser potent ordered pain med per pt: Yes
preference::
Protocol:: Medication orders for pain may be administered in a
manner that supports deferring to patient preference
when the pt is:
- Requesting an ordered lesser potent pain medication.
Least to most potent pain medications are defined
as: acetaminophen < NSAID < tramadol < opioids
(morphine, oxycodone, hydromorphone).
- Requesting a lesser dose of the same medication IF
ORDERED.
- Requesting a less intrusive route of administration
if both routes are prescribed by the provider (PO <
IV).
08/26/24 18:17
Code Status As Directed
Resuscitation Status: Full Code
Abnormal Lab Results
08/26/24
14:56
RBC 4.28 L 10^6/uL
(4.70-6.10)
MCV 97.7 H fL
(80.0-94.0)
MCH 32.5 H pg
(27.0-31.0)
Absolute Lymphs (auto) 1.1 L 10^3/uL
(1.2-3.4)
Absolute Monos (auto) 0.9 H 10^3/uL
(0.1-0.6)
Absolute Eos (auto) 0.8 H 10^3/uL
(0-0.7)
Lymphocytes % 15.1 L %
(20.5-51.1)
Monocytes % 11.7 H %
(1.7-9.3)
Eosinophils % 10.4 H %
(0-6)
Chloride 108 H mmol/L
(98-107)
Carbon Dioxide 20 L mmol/L
(22-30)
BUN 25 H mg/dl
(9-20)
Glucose 114 H mg/dl
(70-99)
08/26/24 14:56
08/26/24 14:56
Vital Signs
Initial and Last Documented VS:
Initial Vital Signs
Temp Pulse Resp BP Pulse Ox
98.3 F 93 19 139/72 96
08/26/24 14:49 08/26/24 14:49 08/26/24 14:49 08/26/24 14:49 08/26/24 14:49
Last Documented Vital Signs
Temp Pulse Resp BP Pulse Ox
98.3 F 80 21 155/67 95
08/26/24 14:49 08/26/24 18:30 08/26/24 18:30 08/26/24 18:02 08/26/24 18:30
<Jesus Palm MD, Resident - Last Filed: 08/26/24 19:22>
*Critical Care Note
Total Time (30-74mins, 75-104mins- exclusive of procedures): Not Applicable
ED Attending Note
<Jesus Palm MD, Resident - Last Filed: 08/26/24 19:22>
-
Portions of this chart may have been created with voice recognition software.� Occasional wrong word or��sound alike� substitutions may have occurred due to the inherent limitations of voice recognition software.
<Byron Arias, DO - Last Filed: 08/26/24 17:39>
ED Attending Note
Patient seen and examined by attending physician: Yes
I performed a history and physical exam of patient and discussed management with resident, I reviewed resident's note and agree with documented findings and plan of care.: Yes
ED Attending Note:
I have seen and evaluated the patient with a [id number] encounter. I have spoken to the resident and involved in the medical history, the physical exam, medical decision making.
Evaluation and management service: agree unless noted differently below.
Results interpretation: agree unless noted differently below.
Focused HPI: 79-year-old male presenting with worsening cellulitis of his right leg. Patient was on antibiotics as an outpatient and getting worse. He was admitted for IV antibiotics which improved. He was discharged on antibiotics and now
getting worse
Physical exam: Cellulitis noted to right leg below knee. Pulses intact
Medical Decision Making: Given failure of outpatient antibiotics, will restart IV antibiotics and broaden coverage
Discharge Plan
Departure
Patient Disposition: Admit
Date of Disposition: 08/26/24
Time of Disposition: 17:57
Presentation/result/management discussed w/ accepting MD/DO: Hospitalist
Discharge Problem:
Cellulitis of right leg
Interventions
Interventions:
*Risk Screen - Suicide Last Done: 08/26/24 18:00
*General Assessment Last Done: 08/26/24 18:00
*Neglect/Abuse Screening Last Done: 08/26/24 18:00
ED- Fall Risk Assessment Last Done: 08/26/24 18:00
*ED COVID-19 Vaccine History Last Done: 08/26/24 18:00
ED-Skin Assessment Last Done: 08/26/24 18:00
[2024-08-26 18:00] VITALS: BMI 30.3
[2024-08-26 18:02] VITALS: BP 155/67
--- NOTE | 2024-08-26 18:21 | HPS.HSE ---
Family Physician
-
Family Physician:
Chief Complaint
-
Pain, swelling right lower extremity
History of Present Illness
79-year-old male just discharged from our hospital 08/23 for right lower extremity cellulitis. Discharged on Augmentin and doxycycline.
Seen by visiting nurse on 08/24 and things were going well. Visiting nurse came back today and noted worsening redness and swelling of the right lower extremity and referred him back to the hospital. Patient states that his pain is about a 5 out of
10 currently and was 5 out of 10 during his last hospitalization as well.
Has been wrapping both legs on a daily basis.
Originally symptoms started in early July and was seen by his primary care doctor. Completed multiple courses of antibiotics in July prior to his hospitalization on August 20.
Medical History
Past Medical History
Past Medical History: Reports Other
Additional Past Medical History:
Stroke with right hemiparesis
Chronic bladder outlet obstruction/BPH
CLL in remission
Iron deficiency anemia
Depression
Chronic lower extremity lymphedema
Venous stasis dermatitis
Hyperlipidemia
DVT
Past Surgical History: Reports Other
Additional Past Surgical History:
Suprapubic bladder catheter
TURP
Cataract surgery
Carotid stent
Rectal hernia repair
Social History
Tobacco: Former Smoker
Alcohol: None
Drug: None
Personal:
Living: With Family
Family History
Family History: Not pertinent
Allergies / Home Medications
Allergies reflects when Allergies were last updated in [employer].
Home Medications with original date entered in [employer]
Allergy/Medication List:
Allergies
Allergy/AdvReac Type Severity Reaction Status Date / Time
No Known Allergies Allergy Verified 08/26/24 14:51
Home Medications
amlodipine 5 mg tablet 5 mg PO DAILY Blood pressure 08/01/21
aspirin 81 mg chewable tablet 81 mg PO DAILY Blood clot prevention/tx 08/01/21
lisinopril 10 mg tablet 10 mg PO DAILY Blood pressure 08/01/21
tamsulosin 0.4 mg capsule 0.4 mg PO DAILY Urinary issue 08/01/21
ferrous sulfate 325 mg (65 mg iron) tablet (Feosol) 325 mg PO DAILY Supplement 10/09/21
cetirizine 10 mg tablet (Zyrtec) 10 mg PO BID Allergies 06/08/22
potassium chloride 20 mEq tablet,extended release(part/cryst) (Klor-Con M) 40 meq (2 x 20 mEq) PO BID #30 tabs 06/15/22
atorvastatin 80 mg tablet 80 mg PO DAILY High Cholesterol 08/27/22
acetaminophen 500 mg tablet (Tylenol Extra Strength) 1,000 mg PO HS Pain 08/20/24
fluoxetine 40 mg capsule 40 mg PO DAILY Mental Health/Anxiety 08/20/24
amoxicillin 500 mg capsule 500 mg PO Q8H #12 caps 08/23/24
doxycycline hyclate 100 mg capsule 100 mg PO Q12 #8 caps 08/23/24
tramadol 25 mg tablet 25 mg PO BIDPRN PRN mod sev pain #10 tabs 08/23/24
Review of Systems
-
History Source: Patient
A 12 point ROS was completed and negative except as noted: Yes
Physical Exam
Vital Signs
Vital Signs
Temp Pulse Resp BP Pulse Ox
98.3 F 93 19 139/72 96
08/26/24 14:49 08/26/24 14:49 08/26/24 14:49 08/26/24 14:49 08/26/24 14:49
Physical Exam
General: Well Developed, Well Nourished, No Apparent Distress and Comfortable
HEENT: NormoCephalic, Anicteric and Moist mucous membranes
Respiratory: Clear
Cardiac: S1/S2 and Regular Rhythm
GI: Soft, Non Tender and Non Distended
Genito-urinary: Deferred by me
Musculoskeletal: No Clubbing, Edema, Left Lower Extremity, Edema, Right Lower Extremity and Other (Bilateral lower extremity lymphedema, worse on the right side)
Skin: Warm, Dry and Other (Significant right lateral leg erythema from ankle to knee, dorsal right foot erythema pitting edema, tender right first toe with mobility, right lateral leg eschar without drainage)
Neuro: Awake, Alert, Oriented and Other (Right hemiparesis)
Hematologic/Lymphatic: No Lymphadenopathy
Psych: Calm
Laboratory Results
-
08/26/24 14:56
08/26/24 14:56
Laboratory Results
Total Bilirubin 0.7 mg/dl (0.2-1.3) 08/26/24 14:56
AST 27 U/L (17-59) 08/26/24 14:56
ALT 28 U/L (0-50) 08/26/24 14:56
Alkaline Phosphatase 101 U/L (38-126) 08/26/24 14:56
Impression/Plan
-
Recurrent right lower extremity cellulitis -given worsening swelling rule out DVT. Check Doppler ultrasound. Admit to [facility]. Start IV cefazolin. Consult ID. Elevate legs.
Doubt compartment syndrome but watch for any signs or symptoms in the hospital.
Chronic lower extremity lymphedema, venous stasis dermatitis -Joshua wrap to both legs. Elevate legs.
Essential hypertension -continue lisinopril, amlodipine.
History of stroke with right hemiparesis -continue aspirin.
Hyperlipidemia -continue atorvastatin.
Chronic bladder outlet obstruction -SPT.
Major depression -continue fluoxetine.
Obesity due to excess calories
Full code
Updated at the bedside.
[2024-08-26] MEDS: TORADOL 15 MG IV (18:26)
[2024-08-26] MEDS: TYLENOL 650 MG PO (18:27)
[2024-08-26 19:02] LABS: Lactic Acid 0.9 mmol/L (0.7-2.0)
[2024-08-26 19:37] VITALS: BP 144/67
[2024-08-26 21:14] VITALS: BP 152/66; BMI 29.8
[2024-08-26] MEDS: ZYRTEC 10 MG PO (21:20)
[2024-08-26] MEDS: TYLENOL PO (21:21)
[2024-08-26] MEDS: ANCEF 10 IV (21:21)
[2024-08-26 23:39] VITALS: BP 125/60
[2024-08-27 05:18] VITALS: BMI 29.8
[2024-08-27] MEDS: ANCEF 10 IV ×3 (05:32→20:36)
[2024-08-27 06:45] LABS: Blood Urea Nitrogen 18 mg/dl (9-20); Calcium 8.7 mg/dl (8.4-10.2); Carbon Dioxide 22 mmol/L (22-30); Chloride 109 mmol/L (98-107); Estimated Creatinine Clearance 90 ml/min; Glucose 88 mg/dl (70-99); Potassium 4.5 mmol/L (3.5-5.1); Sodium 142 mmol/L (135-145); eGFR > 60.00
[2024-08-27 07:00] VITALS: BP 139/72
[2024-08-27] MEDS: FLOMAX 0.4 MG PO (07:31)
[2024-08-27] MEDS: LOW STRENGTH ASPIRIN 81 MG PO (07:31)
[2024-08-27] MEDS: LIPITOR 80 MG PO (07:31)
[2024-08-27] MEDS: NORVASC 5 MG PO (07:31)
[2024-08-27] MEDS: ZYRTEC 10 MG PO ×2 (07:31→20:35)
[2024-08-27] MEDS: ZESTRIL 10 MG PO (07:31)
[2024-08-27] MEDS: PROZAC 40 MG PO (07:31)
[2024-08-27] MEDS: FEOSOL 325 MG PO (07:31)
--- NOTE | 2024-08-27 13:25 | W.PN.UPDATE ---
Update Note
Progress Note Update
I saw and evaluated the patient. I reviewed the resident�s note and agree with findings and plan as documented in the resident�s note.
1. Right leg cellulitis
Presumed lymphedema and chronic LE edema
-Failed outpatient antibiotic therapy - was discharged on oral amoxicillin/doxycycline on 08/22
-Right Le venous Doppler neg
-Family concern for having recurrent cellulitis with some redness in foot and lower leg
-Started on Ancef in ER
-ID input requested for further help
-Maintain on SAI compression therapy/leg elevation to help
2 Suprapubic Catheter
BPH s/p TURP�
-no urinary complains
-gets periodic change
3. CLL in remission
-initially diagnosed after noted to have LNpathy in inguinal area
-has been in remission
4. H/o CVA
-Right sided UE paresis and flexure contracture
-bed bound and need assistance with ADL
CVA with right hemiparesis
Iron deficiency anemia
Depression
Benign Hypertension
DVT Prophylaxis:�subq Lovenox
Code Status:� Full
--- NOTE | 2024-08-27 13:26 | CON.ID ---
Consultation
-
Date/Time Consultation Requested: 08/26/20242047
Date/Time Consultation Performed: 05/27/2024 1320
Requesting Provider: Dr. Sanz
Performing Provider: Dr. Posada
Reason for Consultation: Right lower extremity cellulitis
Chief Complaint / Past History
History of Present Illness
Viktor Jeffrey is a 79-year-old man being evaluated at the request of Dr. Sazn in regards to right lower extremity cellulitis. History is obtained from chart review, along with patient interview. Additional history was obtained from the
patient's who was at the bedside.
The patient has an underlying history of prior CVA with right residual. He has limited ambulatory capacity at this time. Additionally, he has had right lower extremity edema for quite some time, with a history of right inguinal node resection
( believes because of prior Ca). She reports that the patient has had chronic right lower extremity redness ('pinkish') at least for the past year, but approximately 1 month ago he developed some areas of 'oozing' of fluid. She reports that he
was evaluated by his PCP and felt to have cellulitis. He initially was placed on a course of amoxicillin, then switched to doxycycline. When erythema failed to improve he was sent to the ER for further evaluation. According to reviewed notes the
patient was admitted on 08/20 and remained an inpatient through 08/22, and discharged to home on amoxicillin plus doxycycline. Home visiting nurses were out 08/26 leg was felt to be more erythematous with increased swelling and he was sent back to the
hospital for further evaluation.
The patient's reports that he does use Joshua wrap's to the legs daily.
Past History
Additional Past Medical History:
Hx CVA with right residual
HTN
Dyslipidemia
Hx CLL
Chronic Barrios catheter
Carotid stenosis
Additional Past Surgical History:
TURP
Suprapubic catheter
Carotid stenting
Cataract surgery
Allergy History:
No Known Allergies Allergy (Verified 08/26/24 14:51)
Medications Reviewed: Yes
Current Antibiotics:
Cefazolin
Social History
Tobacco: Former Smoker
Alcohol: None
Drug: None
Personal:
Living: With Family
Employment: Retired
Family History
Family History: Not Pertinent
Review of Systems
Vital Signs
Temp Pulse Resp BP Pulse Ox
97.9 F 80 16 139/72 95
08/27/24 07:00 08/27/24 07:00 08/27/24 07:00 08/27/24 07:00 08/27/24 07:00
Physical Exam
Physical Exam
Constitutional: No Acute Distress, Comfortable, Chronically Ill and Non-toxic
Eyes: Pupils Equal, Pupils Round, No Conjunctival Hemorrhage and Sclera Anicteric
Oral: Poor Dentition, No Thrush and No Ulcers
Cardiovascular: Regular Rate and S1/S2; Negative S3/S4
Pulmonary: Clear; Negative Wheezes or Rales
Gastrointestinal: Soft, Non Tender and Non Distended
Extremities: Edema (3+ RLE edema) and Erythema (RLE; mild tenderness)
Skin: Warm and Dry; Negative Rash or Jaundice
Neurological: Awake and Alert
Psychological: Calm
.
Lab / Diagnostic Study Results
08/26/24 14:56
08/27/24 05:50
Abs Immat Gran (auto) 0.0 10^3/uL (0-0.05) 08/26/24 14:56
Absolute Neuts (auto) 4.6 10^3/uL (1.4-6.5) 08/26/24 14:56
Absolute Lymphs (auto) 1.1 10^3/uL (1.2-3.4) L 08/26/24 14:56
Absolute Monos (auto) 0.9 10^3/uL (0.1-0.6) H 08/26/24 14:56
Absolute Basos (auto) 0.1 10^3/uL (0-0.2) 08/26/24 14:56
Immature Gran % 0.1 % (0-0.5) 08/26/24 14:56
Neutrophils % 61.8 % (42.2-75.2) 08/26/24 14:56
Lymphocytes % 15.1 % (20.5-51.1) L 08/26/24 14:56
Monocytes % 11.7 % (1.7-9.3) H 08/26/24 14:56
Eosinophils % 10.4 % (0-6) H 08/26/24 14:56
Basophils % 0.9 % (0-2) 08/26/24 14:56
Lactic Acid 0.9 mmol/L (0.7-2.0) 08/26/24 18:12
Microbiology Results
Micro:
08/26/24 18:12 Blood Culture - Pending
Blood/Venous
Assessment / Plan
Right lower extremity lymphedema
Right lower extremity erythroderma
Suspected right lower extremity SSTI
Hx CVA with right residual
HTN
Dyslipidemia
Hx CLL
Chronic Barrios catheter
Carotid stenosis
Recommendations:
Continue with cefazolin for today.
Patient and counseled on the use of compressive modalities including the use of Tubigrip's and Joshua wrap's, which can be used 24 hours a day.
Patient counseled on lower extremity elevation above the level of the heart for 1 to 1-1/2 hours out of every 6.
Monitor white count and temperature curve.
Will follow for clinical improvement.
--- NOTE | 2024-08-27 14:09 | W.PN.HOSP.TC ---
Today's Communication/Plan
-
Infectious disease consult
Continue antibiotics
Assessment / Plan
Assessment / Plan
Impression
A 79-year-old male with past medical history of right-sided hemiparesis, chronic Barrios's, benign prostatic hyperplasia, hypertension CLL in remission , and chronic lymphedema with bilateral skin thickening of leg and sensitivity to touch suggesting
sensory nerve involvement.
Assessment
Skin and soft
tissue infection secondary to chronic lymphedema?
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
Right-sided hemiparesis secondary to CVA
CLL in remission
Hypertension
Depression
Plan
#1. Skin and soft tissue infection secondary to chronic lymphedema
Patient has history of chronic lymphedema of both legs
Recently discharged on August 23, 2024 after ruling out DVT with Doppler ultrasound on doxycycline and amoxicillin for management of cellulitis with a visiting nurse
The visiting nurse observed swelling and redness of the leg and patient was admitted for recurrence suspicion of cellulitis
Repeat right leg venous Doppler l ultrasound was done to rule out DVT
Patient most likely has chronic lymphedema that is causing venous pooling, skin irritation, and sensory neuropathy
Continue cefazolin for now
Monitor patient response
Advised the patient to keep the legs at heart level to avoid edematous fluid from pooling in the legs
Also advised to use compression stockings
#2 chronic suprapubic catheter secondary to bladder outflow obstruction
Patient has benign prostatic hyperplasia S/P TURP and gets Barrios's periodically changed
Patient takes tamsulosin 0.4 mg daily
No urinary complaints
#3 right-sided CVA with residual hemiparesis
Patient has history of right-sided hemiparesis in the [place] territory 3 years ago
Contracture of right upper arm and right lower extremity weakness
Also found to have left carotid stenosis for which stenting was done
Patient also has history of left upper extremity DVT in 2020
continue aspirin and atorvastatin
#4. CLL
Patient was diagnosed with an inguinal lymph node enlargement
Patient has been treated with G-CSF for pancytopenia
Patient is currently in remission
#5. Hypertension
Continue home blood pressure medications that his amlodipine, lisinopril
#6 depression
Continue Prozac
CODE STATUS full code
DVT prophylaxis Heparin 40 mg subcut will be given every 6 hours as needed
Anticipated Discharge: 24 - 48 hours
Subjective/Interval History
-
Date of Service: August 27, 2024
Patient feels well, feels pain in the leg legs only when touched or moved around suggesting sensitivity because of chronic lymphedema.
Objective Data
-
Labs:
Laboratory Results
08/27/24
05:50
Sodium 142
Potassium 4.5
Chloride 109 H
Carbon Dioxide 22
BUN 18
Creatinine 0.8
Glucose 88
Calcium 8.7
Vital Signs:
Vital Signs
Temp Pulse Resp BP Pulse Ox
97.9 F 80 16 139/72 95
08/27/24 07:00 08/27/24 07:00 08/27/24 07:00 08/27/24 07:00 08/27/24 07:00
I&O
08/26/24 08/27/24 08/28/24
06:59 06:59 06:59
Output Total 1050 / 1050
Balance -1050 / -1050
Review of Systems
-
All other systems: Reviewed and negative
Physical Exam
-
General: Well Developed, Well Nourished, No Apparent Distress, Comfortable and Conversant
HEENT: Normocephalic and Atraumatic
Respiratory: Clear to Auscultation
Cardiac: Regular Rhythm and S1/S2
GI: Soft, Nontender, Nondistended and Normal Bowel Sounds
Genito-urinary: No Costovertebral Tender
Musculoskeletal: Edema, Right Lower Extrem, Edema, Left Lower Extrem and Other (Redness, swelling, thick skin, sensitive to touch)
Skin: Warm, Dry and Lesions (Patient has redness and swelling of both legs, scabs present over the right leg )
Neuro: Awake, Alert and Oriented
Hematologic / Lymphatic: No Lymphadenopathy
Psych: Calm
[2024-08-27 15:00] VITALS: BP 143/73
[2024-08-27] MEDS: LOVENOX 40 MG SC (17:10)
[2024-08-27] MEDS: TYLENOL 1000 MG PO (20:35)
[2024-08-27 23:20] VITALS: BP 141/71
[2024-08-28] MEDS: ANCEF 10 IV ×2 (05:35→15:00)
[2024-08-28 06:14] LABS: Hematocrit 37.2 % (39.0-52.0); Hemoglobin 12.7 g/dL (13.0-18.0); Mean Corp Hgb Conc. 34.1 g/dL (33.0-37.0); Mean Corpuscular Hgb 32.8 pg (27.0-31.0); Mean Corpuscular Volume 96.1 fL (80.0-94.0); Mean Platelet Volume 9.7 fL (7.4-10.4); Platelet Count 213 10^3/uL (130-400); Red Blood Cell Count 3.87 10^6/uL (4.70-6.10); Red Cell Dist. Width 13.6 % (11.5-14.5); White Blood Cell Count 5.9 10^3/uL (4.8-10.8)
[2024-08-28 06:37] LABS: INR 1.09
[2024-08-28 06:59] LABS: ALT (SGPT) 17 U/L (0-50); AST (SGOT) 20 U/L (17-59); Albumin 3.4 g/dl (3.5-5.0); Alkaline Phosphatase 91 U/L (38-126); Blood Urea Nitrogen 16 mg/dl (9-20); Calcium 8.4 mg/dl (8.4-10.2); Carbon Dioxide 23 mmol/L (22-30); Chloride 108 mmol/L (98-107); Estimated Creatinine Clearance 90 ml/min; Glucose 87 mg/dl (70-99); Sodium 143 mmol/L (135-145); Total Bilirubin 0.5 mg/dl (0.2-1.3); Total Protein 5.9 g/dl (6.3-8.2); eGFR > 60.00
[2024-08-28 08:04] VITALS: BP 143/70
[2024-08-28] MEDS: FEOSOL 325 MG PO (09:32)
[2024-08-28] MEDS: PROZAC 40 MG PO (09:33)
[2024-08-28] MEDS: ZYRTEC 10 MG PO (09:33)
[2024-08-28] MEDS: FLOMAX 0.4 MG PO (09:33)
[2024-08-28] MEDS: LOW STRENGTH ASPIRIN 81 MG PO (09:33)
[2024-08-28] MEDS: ZESTRIL 10 MG PO (09:33)
[2024-08-28] MEDS: NORVASC 5 MG PO (09:44)
[2024-08-28] MEDS: LIPITOR 80 MG PO (09:44)
--- NOTE | 2024-08-28 12:36 | W.DCSUMMARY ---
Discharge Summary
Discharge Data
Date of Admission: 08/26/24
Date of Discharge: 08/28/24
-
Pending Results: No
Hospital Course
Discharging Physician : Dr. Farhat Saavedra, Dr. Darshan Brown
Disposition : Home
Principal Discharge diagnosis : Right leg cellulitis
Chronic Discharge diagnosis : CVA with right-sided hemiparesis, chronic bladder outlet obstruction/benign prostatic hyperplasia, chronic lymphocytic leukemia in remission, iron deficiency anemia, chronic lymphedema, depression hyperlipidemia and
history of deep venous thrombosis.
Hospital Course : 79-year-old male who was recently discharged from [facility] on August 23, 2024 for right lower extremity cellulitis on Augmentin and doxycycline presented back to the emergency with swelling and redness of right foot.
He was being seen by a visiting nurse regularly. On August 26, 2024 nurse observed that there was increased swelling and redness of the leg so she referred patient to the emergency department of the hospital. Patient had a repeat Doppler
ultrasound to rule out deep venous thrombosis in the right leg. Blood workup was done and blood cultures were sent. The blood culture did not show any growth in 24 hours and his white cell count remained within normal limits. Infectious disease
consultation was done and patient was started on cefazolin, compression leg modalities and advised to keep the legs elevated at heart level. Patient improved clinically , remained afebrile, no leukocytosis and blood culture showed no growth in 24
hours . He is being discharged on August 28, 2024 on oral Keflex 500 mg 4 times daily for 7 days.
Chronic problems
1. CVA with right-sided hemiparesis
Continue aspirin and atorvastatin
2. BPH/bladder outlet obstruction/chronic Barrios's
Patient has suprapubic catheter in place
Last time it was changed 2 weeks ago
Continue tamsulosin
3. Essential hypertension:
Continue home blood pressure medications
4. Depression
Continue home dose of Prozac
5. CLL
In remission
Continue iron supplements
Important imaging findings :
Peripheral vascular ultrasound(08/26)
MPRESSION: No evidence of deep venous thrombosis of the right lower extremity.
Discharge Plan
-
Patient Disposition: Home (Routine Discharge)
Discharge Diagnosis/Procedures: Right leg cellulitis
Condition: Fair
Diet: Low Fat and Low Sodium
Activity: As tolerated
Driving Restrictions: As prior to admission
Bathing Restrictions: OK to Shower
Other Services: VN
Wound Care: Please put SAI wrapping OR Tubigrip of right leg
Referrals:
UNKNOWN - PT NOT,INTERVIEWE [Unknown Provider] -
Prescriptions:
New
cephalexin 500 mg capsule
500 mg PO QID 7 Days Qty: 28 0RF
Continued
amlodipine 5 MG tablet
5 mg PO DAILY
tamsulosin 0.4 MG capsule
0.4 mg PO DAILY
lisinopril 10 MG tablet
10 mg PO DAILY
aspirin 81 MG tablet,chewable
81 mg PO DAILY
ferrous sulfate [Feosol] 325 MG tablet
325 mg PO DAILY
cetirizine [Zyrtec] 10 mg Tablet
10 mg PO BID
atorvastatin 80 mg Tablet
80 mg PO DAILY
fluoxetine 40 mg Capsule
40 mg PO DAILY
acetaminophen [Tylenol Extra Strength] 500 mg Tablet
1,000 mg PO HS
tramadol 25 mg tablet
25 mg PO BIDPRN PRN (Reason: mod sev pain) Qty: 10 0RF
Patient Comments:
08/26/2024: last filled 08/24/24, 10 tabs for 5 days
potassium chloride [Klor-Con M20] 20 mEq Tablet,Er Particles/Crystals
40 meq PO BID Qty: 30 0RF
Discontinued
amoxicillin 500 mg Capsule
500 mg PO Q8H Qty: 12 0RF
doxycycline hyclate 100 mg Capsule
100 mg PO Q12 Qty: 8 0RF
Discharge Orders:
Discharge Patient (As Directed); Ordered 08/28/24
Ordered By: Darshan Brown
Discharge Date and Time
Print Language: TUNISIAN
--- NOTE | 2024-08-28 12:47 | W.PN.ID1 ---
Date of Service
Date of Service: August 28, 2024
Today's Communication
Transition to Keflex.
Assessment / Plan
Right lower extremity lymphedema
Right lower extremity erythroderma
Suspected right lower extremity SSTI
Hx CVA with right residual
HTN
Dyslipidemia
Hx CLL
Chronic Barrios catheter
Carotid stenosis
Recommendations:
Multiple.
Transition to Keflex 500 mg p.o. 4 times daily for an additional 7 days.
Patient and counseled on the use of compressive modalities including the use of Tubigrip's and Joshua wrap's, which can be used 24 hours a day.
Patient counseled on lower extremity elevation above the level of the heart for 1 to 1-1/2 hours out of every 6.
Chief Complaint
-: Cellulitis
Subjective / Review of Systems
Patient seen and examined. Marked improvement in lower extremity edema and edema with the use of compressive modalities.
Review of Systems: No Fever and No Chills
Vital Signs / Physical Exam
Vital Signs
Vital Signs
Temp Pulse Resp BP Pulse Ox
97.9 F 75 16 143/70 95
08/28/24 08:04 08/28/24 09:44 08/28/24 08:04 08/28/24 09:44 08/28/24 08:04
Physical Exam
Constitutional: No Acute Distress, Comfortable and Non-toxic
Eyes: No Conjunctival Hemorrhage and Sclera Anicteric
Cardiovascular: S1/S2; Negative S3/S4
Extremities: Edema (2+ B/L LE's) and Erythema (Improved)
Neurological: Awake and Alert
Psychological: Calm
Objective Data
Lab Data
Lab Results
08/28/24 06:04
08/28/24 06:04
PT 14.0 Sec (11.4-14.6) 08/28/24 06:04
INR 1.09 08/28/24 06:04
Estimated Creat Clear 90 ml/min 08/28/24 06:04
Lactic Acid 0.9 mmol/L (0.7-2.0) 08/26/24 18:12
Total Bilirubin 0.5 mg/dl (0.2-1.3) 08/28/24 06:04
AST 20 U/L (17-59) 08/28/24 06:04
ALT 17 U/L (0-50) 08/28/24 06:04
Alkaline Phosphatase 91 U/L (38-126) 08/28/24 06:04
Most recent labs reviewed.
Micro Results:
08/26/24 18:12 Blood Culture - Preliminary
Blood/Venous No Growth in 24 hours- Final report to follow
Care Review
Plan reviewed with: Physician (Hospitalist; Resident)
--- NOTE | 2024-08-28 13:25 | W.PN.UPDATE ---
Update Note
Progress Note Update
I saw and evaluated the patient. I reviewed the resident�s note and agree with findings and plan as documented in the resident�s note.
1. Right leg cellulitis
Right leg lymphedema
-Failed outpatient antibiotic therapy - was discharged on oral amoxicillin/doxycycline on 08/22
-Right Le venous Doppler neg
-Family concern for having recurrent cellulitis with some redness in foot and lower leg
-Maintain on SAI compression therapy/leg elevation to help
-ID evaluated and help appreciated
-Patient medically appropriate to be discharged on oral Keflex therapy for 500 mg 4 times daily for 7days
2 Suprapubic Catheter
BPH s/p TURP�
-no urinary complains
-gets periodic change
3. CLL in remission
-initially diagnosed after noted to have LNpathy in inguinal area
-has been in remission
4. H/o CVA
-Right sided UE paresis and flexure contracture
-bed bound and need assistance with ADL
CVA with right hemiparesis
Iron deficiency anemia
Depression
Benign Hypertension
DVT Prophylaxis:�subq Lovenox
Code Status:� Full
Discharge home
--- NOTE | 2024-08-28 13:53 | W.PN.HOSP.TC ---
Today's Communication/Plan
-
After consultation infectious diseases department, discharge on oral antibiotics
Provide education on wound care and chronic lymphedema
Assessment / Plan
Assessment / Plan
Impression
A 79-year-old male with past medical history of right-sided hemiparesis, chronic Barrios's, benign prostatic hyperplasia, hypertension CLL in remission , and chronic lymphedema with bilateral skin thickening of leg and sensitivity to touch suggesting
sensory nerve involvement.
Assessment
Skin and softtissue infection secondary to chronic lymphedema?
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
Right-sided hemiparesis secondary to CVA
CLL in remission
Hypertension
Depression
Plan
#1. Skin and soft tissue infection secondary to chronic lymphedema
Patient has history of chronic lymphedema of both legs
Recently discharged on August 23, 2024 after ruling out DVT with Doppler ultrasound on doxycycline and amoxicillin for management of cellulitis with a visiting nurse
Repeat right leg venous Doppler l ultrasound was done that showed no DVT August 26, 2024
Patient most likely has chronic lymphedema that is causing venous pooling, skin irritation, and sensory neuropathy
Infectious disease consultation appreciated, cefazolin was advised
Compression leg modalities and leg elevation advised
Plan is to discharge oral cephalexin 500 mg 4 times daily for 7 days
#2 chronic suprapubic catheter secondary to bladder outflow obstruction
Patient has benign prostatic hyperplasia S/P TURP and gets Barrios's periodically changed
Last time it was drained 2 weeks ago
Patient takes tamsulosin 0.4 mg daily
No urinary complaints
#3 right-sided CVA with residual hemiparesis
Patient has history of right-sided hemiparesis in the [place] 3 years ago
Contracture of right upper arm and right lower extremity weakness
Also found to have left carotid stenosis for which stenting was done
Patient also has history of left upper extremity DVT in 2020
continue aspirin and atorvastatin
#4. CLL
Patient was diagnosed with an inguinal lymph node enlargement
Patient has been treated with G-CSF for pancytopenia
Patient is currently in remission
#5. Hypertension
Continue home blood pressure medications that his amlodipine, lisinopril
#6 depression
Continue Prozac
CODE STATUS full code
DVT prophylaxis Heparin 40 mg subcut will be given every 6 hours as needed
Anticipated Discharge: Today
Subjective/Interval History
-
Date of Service: August 28, 2024
Patient has no active issues
The redness and swelling in the right leg has improved
Objective Data
-
Labs:
Laboratory Results
08/28/24
06:04
WBC 5.9
Hgb 12.7 L
Hct 37.2 L
Plt Count 213
PT 14.0
INR 1.09
Sodium 143
Potassium 4.0
Chloride 108 H
Carbon Dioxide 23
BUN 16
Creatinine 0.8
Glucose 87
Calcium 8.4
Total Bilirubin 0.5
AST 20
ALT 17
Alkaline Phosphatase 91
Vital Signs:
Vital Signs
Temp Pulse Resp BP Pulse Ox
97.9 F 75 16 143/70 95
08/28/24 08:04 08/28/24 09:44 08/28/24 08:04 08/28/24 09:44 08/28/24 08:20
I&O
08/27/24 08/28/24 08/29/24
06:59 06:59 06:59
Intake Total 2520 / 2520
Output Total 1050 / 1050 1500 / 1500
Balance -1050 / -1050 1020 / 1020
Review of Systems
-
All other systems: Reviewed and negative
Physical Exam
-
General: Well Developed, Well Nourished, Comfortable and Conversant
HEENT: Normocephalic, Atraumatic and Moist Mucous Membranes
Respiratory: Clear to Auscultation
Cardiac: Regular Rhythm and S1/S2
GI: Soft, Nontender, Nondistended and Normal Bowel Sounds
Genito-urinary: No Costovertebral Tender
Musculoskeletal: No Clubbing, Edema, Right Lower Extrem, Edema, Left Lower Extrem and Other (Right leg has reddish hue that is secondary to chronic lymphedema fluid leakage and stasis dermatitis. The cellulitis component has improved)
Skin: Warm and Other (Thick dry skin, right leg wrinkling, whitish scales, onycholysis)
Neuro: Awake, Alert, Oriented and Other (Right-sided hemiparesis, right arm contracture)
Hematologic / Lymphatic: No Lymphadenopathy
Psych: Calm
--- NOTE | 2024-08-28 14:06 | CM ---
Initial assessment completed with spouse via phone
Pharmacy verified: [facility] [address] [facility], [place]
PCP: Tonya Andersen NP, [place] P#[phone]
reported that patient lives with and other family members in a 2 story home; Ramp to enter the home; 1st floor set up
Patient needs assistance with personal care and ADLs; able to pivot from WC to commode; requires assist of 2
will transport home
SNF stay 2021 @ [facility] ([facility]
Active with [facility] for Home Health services
Plan: discharge to home today with [facility]
[2024-08-28 15:52] VITALS: BP 134/66
== END 2024-08-28 16:50 | disposition home health service (06) | DRG 603 ==
LOC: 3 WEST ACU 19:15
PROVIDERS: Student in an Organized Health Care Education/Training Program; ADMITTING PHYSICIAN Hospitalist; ATTENDING PHYSICIAN Hospitalist; CONSULT PHYSICIAN Internal Medicine Infectious Disease; EMERGENCY PHYSICIAN Student in an Organized Health Care Education/Training Program; FAMILY PHYSICIAN Nurse Practitioner
DX: L03.115 Cellulitis of right lower limb (principal); I69.351 Hemiplegia and hemiparesis following cerebral infarction affecting right dominant side; C91.11 Chronic lymphocytic leukemia of B-cell type in remission; I10 Essential (primary) hypertension; F32.9 Major depressive disorder, single episode, unspecified; I89.0 Lymphedema, not elsewhere classified; Z79.82 Long term (current) use of aspirin
CPT/HCPCS: 80048; 80053; 83605; 85025; 85027; 85610; 87040; 93971; 96374; 97162; 97167; 99284

== ENCOUNTER → 2024-09-07 08:40 | Outpatient (REF) | payer MEDICARE, OTHER, SELFPAY ==
[2024-09-07 18:55] LABS: % Basophils 0.9 % (0-2); % Eosinophils 8.3 % (0-6); % Immature Granulocytes 0.4 % (0-0.5); % Monocytes 9.5 % (1.7-9.3); % Neutrophils 67.9 % (42.2-75.2); Absolute Basophils 0.1 10^3/uL (0-0.2); Absolute Eosinophils 0.7 10^3/uL (0-0.7); Absolute Monocytes 0.8 10^3/uL (0.1-0.6); Absolute Neutrophils 5.4 10^3/uL (1.4-6.5); Hematocrit 39.5 % (39.0-52.0); Hemoglobin 13.1 g/dL (13.0-18.0); Mean Corp Hgb Conc. 33.2 g/dL (33.0-37.0); Mean Corpuscular Hgb 32.8 pg (27.0-31.0); Mean Platelet Volume 10.6 fL (7.4-10.4); Nucleated Red Blood Cells % 0 % (-); Platelet Count 240 10^3/uL (130-400); Red Blood Cell Count 3.99 10^6/uL (4.70-6.10); Red Cell Dist. Width 13.9 % (11.5-14.5)
[2024-09-07 19:12] LABS: ALT (SGPT) 19 U/L (0-50); AST (SGOT) 20 U/L (17-59); Albumin 4.1 g/dl (3.5-5.0); Alkaline Phosphatase 98 U/L (38-126); Blood Urea Nitrogen 11 mg/dl (9-20); Carbon Dioxide 26 mmol/L (22-30); Chloride 107 mmol/L (98-107); Glucose 71 mg/dl (70-99); HDL Cholesterol 45 mg/dl; LDL Cholesterol, Calculated 42 mg/dl; Potassium 4.7 mmol/L (3.5-5.1); Sodium 144 mmol/L (135-145); Total Bilirubin 0.6 mg/dl (0.2-1.3); Total Cholesterol 98 mg/dl (50-199); Total Protein 6.5 g/dl (6.3-8.2); Triglyceride 58 mg/dl (10-149); Very Low Density Lipoprotein 11 mg/dl (0-30); eGFR > 60.00
[2024-09-07 19:23] LABS: LDL Cholesterol, Direct 42 mg/dl
[2024-09-07 19:40] LABS: TSH 0.34 uIU/ml (0.47-4.68)
== END ==
LOC: CLAB 08:40
PROVIDERS: ATTENDING PHYSICIAN Nurse Practitioner
DX: R73.01 Impaired fasting glucose (principal); D64.9 Anemia, unspecified; E07.9 Disorder of thyroid, unspecified; I10 Essential (primary) hypertension; E04.1 Nontoxic single thyroid nodule; E78.5 Hyperlipidemia, unspecified
CPT/HCPCS: 36415; 80053; 80061; 83721; 84439; 84443; 85025

== ENCOUNTER 2024-11-26 01:29 | Inpatient (IN) | payer MEDICARE, OTHER, SELFPAY ==
[2024-11-25 15:55] VITALS: BP 161/69
--- NOTE | 2024-11-25 15:59 | ED.GENMED ---
ED Provider Triage
<Julio Jackson PA-C - Last Filed: 11/25/24 15:59>
-
Patient seen by provider in Triage?: Seen in Triage
History of Present Illness
<Julio Jackson PA-C - Last Filed: 11/25/24 15:59>
General
Chief Complaint: Skin Problem
Time Seen by Provider: 11/25/24 20:43
<ELZBIETA Burnett - Last Filed: 11/25/24 23:25>
General
Source: patient and spouse
Exam Limitations: other (expressive Aphasia)
History of Present Illness
History of Present Illness:
This is a 79 year old male that comes in with c/o right foot wound infection and groin infection. states that they went to see the PCP today. State that he has an infection of the right foot and open wound. States that he had this is August
and was admitted here. Patient also has redness of the lower abd into the groin that his states that is due to him sweating. States that he is occasionally dizzy. Denies any fever, chills, chest pain, SOB, abd pain, nausea, vomiting, diarrhea,
headache. Patient has suprapubic catheter.
Past History
<Julio Jackson PA-C - Last Filed: 11/25/24 15:59>
Past History
ED Past Medical History: Cancer (CLL), CVA, HTN, Hypercholesterolemia, Hypothyroidism and Other (MRSA infection)
ED Past Surgical History: Negative Cardiac
Social History
Tobacco: Non-smoker
Alcohol: None
Drug: None
Personal:
Living: with family
Employment: Retired
Family History
Family History: Other (Noncontributory)
<ELZBIETA Burnett - Last Filed: 11/25/24 23:25>
Past History
ED Past Medical History: CVA (With right sided weakness), HTN, Hypercholesterolemia, Psychiatric (Depression) and Other (MRSA infection, Aphasia, Left carotid stenosis, Urinary retention, )
ED Past Surgical History: Orthopedic (Right knee surgery), Urological (Suprapubic catheter) and Other (cataracts, Hernia)
Social History
Tobacco: Former smoker
Alcohol: None
Personal:
Review of Systems
<ELZBIETA Burnett - Last Filed: 11/25/24 23:25>
Review of Systems
All Other Systems: ROS reviewed and negative except as documented in HPI and ROS
Constitutional: Reports no symptoms; Denies fever or chills
EENT: Reports no symptoms
Respiratory: Reports no symptoms; Denies cough or trouble breathing
Cardiac: Reports no symptoms; Denies chest pain
ABD/GI: Reports no symptoms; Denies abdominal pain, nausea, vomiting or diarrhea
: Reports no symptoms
Musculoskeletal: Reports edema (Right and left)
Skin: Reports other (Redness right leg and groin )
Neurological: Reports dizzy (occasional); Denies headache
Psychiatric: Reports no symptoms
Phy Exam
<ELZBIETA Burnett - Last Filed: 11/25/24 23:25>
General Physical Exam
General Presentation: no apparent distress
General age: appears stated age
General Skin: warm and dry
General Habitus: debilitated and elderly
General Mental: alert
General Hydration: appears well hydrated
ENT Exam
ENT Exam: TM's normal, pharynx normal and neck supple
Cardiovascular Exam
Cardiovascular Exam: regular rate/rhythm and normal peripheral pulses
Pulmonary Exam
Pulmonary Exam: no respiratory distress, chest non tender, no rhonchi, no wheezing, no cough and other (fine crackles at bases)
Gastrointestinal Exam
Gastrointestinal Exam: normal bowel sounds, non tender, soft, no organomegaly, no pulsatile mass and non distended
Musculoskeletal Exam
Musculoskeletal Exam: edema (R>L pitting +2,) and other (Right sided weakness)
Skin Exam
Skin Exam: normal color, no petechia and redness (Redness of the right lower abd into the groin and testicles and bilateral medial thighs Rightness of the right great toe with wound around the lateral nail and redness into the foot with swelling)
Psychiatric Exam
Psychiatric Exam: normal mood/affect
Course
<Julio Jackson PA-C - Last Filed: 11/25/24 15:59>
Orders/Labs/Results
Orders:
Orders
11/25/24 15:58
CR Foot - Right Min 3 Views Urgent
Comment:
Reason For Exam: cellulitis, great toe wound
Venous Doppler Lwr Ext Rt [US Periph Venous LOWER Ext RT] Urgent
Comment:
Reason For Exam: RLE edema
11/25/24 16:08
CRP [C-Reactive Protein] Urgent
Comprehensive Metabolic Panel Urgent
11/25/24 22:39
Complete Blood Count/With Diff Urgent
Erythrocyte Sed Rate Urgent
11/25/24 23:19
Piperacillin/Tazo 3.375 Gram [Zosyn] 3.375 gram in 50 ml IV NOW
Abnormal Lab Results
11/25/24 11/25/24
16:08 22:39
RBC 3.93 L 10^6/uL
(4.70-6.10)
Hgb 12.8 L g/dL
(13.0-18.0)
Hct 38.5 L %
(39.0-52.0)
MCV 98.0 H fL
(80.0-94.0)
MCH 32.6 H pg
(27.0-31.0)
Abs Immat Gran (auto) 0.1 H 10^3/uL
(0-0.05)
Absolute Neuts (auto) 7.6 H 10^3/uL
(1.4-6.5)
Absolute Lymphs (auto) 1.1 L 10^3/uL
(1.2-3.4)
Absolute Monos (auto) 0.8 H 10^3/uL
(0.1-0.6)
Neutrophils % 76.0 H %
(42.2-75.2)
Lymphocytes % 11.4 L %
(20.5-51.1)
Glucose 112 H mg/dl
(70-99)
C-Reactive Protein 12.60 H mg/L
(0.0-10.00)
11/25/24 22:39
11/25/24 16:08
Vital Signs
Initial and Last Documented VS:
Initial Vital Signs
Temp Pulse Resp BP Pulse Ox
98.1 F 89 18 161/69 98
11/25/24 15:55 11/25/24 15:55 11/25/24 15:55 11/25/24 15:55 11/25/24 15:55
Last Documented Vital Signs
Temp Pulse Resp BP Pulse Ox
98.1 F 87 23 155/76 92
11/25/24 15:55 11/25/24 20:45 11/25/24 20:45 11/25/24 20:32 11/25/24 20:45
<ELZBIETA Burnett - Last Filed: 11/25/24 23:25>
Orders/Labs/Results
Orders:
Orders
11/25/24 15:58
CR Foot - Right Min 3 Views Urgent
Comment:
Reason For Exam: cellulitis, great toe wound
Venous Doppler Lwr Ext Rt [US Periph Venous LOWER Ext RT] Urgent
Comment:
Reason For Exam: RLE edema
11/25/24 16:08
CRP [C-Reactive Protein] Urgent
Comprehensive Metabolic Panel Urgent
11/25/24 22:39
Complete Blood Count/With Diff Urgent
Erythrocyte Sed Rate Urgent
11/25/24 23:19
Piperacillin/Tazo 3.375 Gram [Zosyn] 3.375 gram in 50 ml IV NOW
Abnormal Lab Results
11/25/24 11/25/24
16:08 22:39
RBC 3.93 L 10^6/uL
(4.70-6.10)
Hgb 12.8 L g/dL
(13.0-18.0)
Hct 38.5 L %
(39.0-52.0)
MCV 98.0 H fL
(80.0-94.0)
MCH 32.6 H pg
(27.0-31.0)
Abs Immat Gran (auto) 0.1 H 10^3/uL
(0-0.05)
Absolute Neuts (auto) 7.6 H 10^3/uL
(1.4-6.5)
Absolute Lymphs (auto) 1.1 L 10^3/uL
(1.2-3.4)
Absolute Monos (auto) 0.8 H 10^3/uL
(0.1-0.6)
Neutrophils % 76.0 H %
(42.2-75.2)
Lymphocytes % 11.4 L %
(20.5-51.1)
Glucose 112 H mg/dl
(70-99)
C-Reactive Protein 12.60 H mg/L
(0.0-10.00)
11/25/24 22:39
11/25/24 16:08
Glucose nonfasting. CRP elevated but can adjust for age. glucose nonfasting. Sed rate normal at 18
Vital Signs
Initial and Last Documented VS:
Initial Vital Signs
Temp Pulse Resp BP Pulse Ox
98.1 F 89 18 161/69 98
11/25/24 15:55 11/25/24 15:55 11/25/24 15:55 11/25/24 15:55 11/25/24 15:55
Last Documented Vital Signs
Temp Pulse Resp BP Pulse Ox
98.1 F 87 23 155/76 92
11/25/24 15:55 11/25/24 20:45 11/25/24 20:45 11/25/24 20:32 11/25/24 20:45
<ELZBIETA Burnett - Last Filed: 11/25/24 23:25>
MDM/Problems Addressed
Differential Diagnosis Includes:
Cellulitis of the right foot and lower leg. Cellulitis with fungal infection lower abd, groin and thighs.
MDM/Problems Addressed:
This is a 79 year old male that comes in with c/ol right foot swelling, wound and fungal/infection of the lower abd into the groin. states that he saw the PCP today and was sent in for IV antibiotics.
Will get labs, x-ray foot , Ultrasound right lower leg.
Explained to patient and that he would be admitted. Will start IV antibiotics. Patient will also need treatment for his fungal rash. Hospitalist notified about admission.
Chronic conditions affecting care:
Suprapubic catheter, Chronic lymph edema.
Chronic conditions affecting care: Cancer
Acute Exacerbation and/or Progression of Chronic Illness:
Chronic lymph edema.
Acute Exacerbation and/or Progression of Chronic Illness: Cancer
<ELZBIETA Burnett - Last Filed: 11/25/24 23:25>
*Radiology
Radiology exam reviewed: preliminary read by ED provider (Right foot negative for fracture. ) and radiology read reviewed (US-No sonographic evidence for right lower extremity deep venous thrombosis. Severe diffuse subcutaneous edema throughout the
right lower leg)
*Pulse Oximetry
Patient hypoxic: no
*EKG
Interpreted by ED Provider?: NA
Rate: EKG- N/A
*Wafer Fab Technician Interpretation
Rate: normal
Heart Rate: 88
Rhythm: sinus
*Critical Care Note
Total Time (30-74mins, 75-104mins- exclusive of procedures): Not Applicable
ED Attending Note
<Julio Jackson PA-C - Last Filed: 11/25/24 15:59>
-
Portions of this chart may have been created with voice recognition software.� Occasional wrong word or��sound alike� substitutions may have occurred due to the inherent limitations of voice recognition software.
Discharge Plan
Departure
Patient Disposition: Admit
Date of Disposition: 11/25/24
Time of Disposition: 23:23
Admit to: Med/Surg
Presentation/result/management discussed w/ accepting MD/DO: Hospitalist
Patient with high blood pressure during this ER visit?: Yes
Condition: Good
Covid-19: Not Applicable
Discharge Problem:
Cellulitis of foot, right, fungal/cellulitis abd, groin, thigh rash
Prescriptions:
No Action
amlodipine 5 MG tablet
5 mg PO DAILY
tamsulosin 0.4 MG capsule
0.4 mg PO DAILY
lisinopril 10 MG tablet
10 mg PO DAILY
aspirin 81 MG tablet,chewable
81 mg PO DAILY
ferrous sulfate [Feosol] 325 MG tablet
325 mg PO DAILY
cetirizine [Zyrtec] 10 mg Tablet
10 mg PO BID
atorvastatin 80 mg Tablet
80 mg PO DAILY
fluoxetine 40 mg Capsule
40 mg PO DAILY
acetaminophen [Tylenol Extra Strength] 500 mg Tablet
1,000 mg PO HS
tramadol 25 mg tablet
25 mg PO BIDPRN PRN (Reason: mod sev pain) Qty: 10 0RF
Patient Comments:
08/26/2024: last filled 08/24/24, 10 tabs for 5 days
cephalexin 500 mg capsule
500 mg PO QID 7 Days Qty: 28 0RF
potassium chloride [Klor-Con M20] 20 mEq Tablet,Er Particles/Crystals
40 meq PO BID Qty: 30 0RF
Referrals:
UNKNOWN - PT DOES,NOT KNOW [Family Provider] -
Discharge Date and Time
Print Language: ICELANDIC
[2024-11-25 16:37] LABS: ALT (SGPT) 24 U/L (0-50); AST (SGOT) 25 U/L (17-59); Alkaline Phosphatase 114 U/L (38-126); Blood Urea Nitrogen 16 mg/dl (9-20); Calcium 8.8 mg/dl (8.4-10.2); Carbon Dioxide 22 mmol/L (22-30); Chloride 107 mmol/L (98-107); Glucose 112 mg/dl (70-99); Potassium 4.4 mmol/L (3.5-5.1); Sodium 142 mmol/L (135-145); Total Bilirubin 0.7 mg/dl (0.2-1.3); eGFR > 60.00
[2024-11-25 20:32] VITALS: BP 155/76
[2024-11-25 21:00] VITALS: BP 142/74
[2024-11-25 22:00] VITALS: BP 130/68
[2024-11-25 22:45] LABS: % Basophils 0.6 % (0-2); % Eosinophils 3.2 % (0-6); % Immature Granulocytes 0.5 % (0-0.5); % Lymphocytes 11.4 % (20.5-51.1); % Monocytes 8.3 % (1.7-9.3); Absolute Basophils 0.1 10^3/uL (0-0.2); Absolute Eosinophils 0.3 10^3/uL (0-0.7); Absolute Immature Granulocytes 0.1 10^3/uL (0-0.05); Absolute Lymphocytes 1.1 10^3/uL (1.2-3.4); Absolute Monocytes 0.8 10^3/uL (0.1-0.6); Absolute Neutrophils 7.6 10^3/uL (1.4-6.5); Hematocrit 38.5 % (39.0-52.0); Hemoglobin 12.8 g/dL (13.0-18.0); Mean Corp Hgb Conc. 33.2 g/dL (33.0-37.0); Mean Corpuscular Hgb 32.6 pg (27.0-31.0); Mean Platelet Volume 9.3 fL (7.4-10.4); Nucleated Red Blood Cells % 0 % (-); Platelet Count 242 10^3/uL (130-400); Red Blood Cell Count 3.93 10^6/uL (4.70-6.10)
[2024-11-25 22:52] LABS: Erythrocyte Sed Rate 18 mm/hour (0-20)
[2024-11-25 23:00] VITALS: BP 137/76
[2024-11-26] VITALS: BP 118/94
--- NOTE | 2024-11-26 00:40 | HPS.HSE ---
Family Physician
-
Family Physician: NOT KNOW UNKNOWN - PT DOES
Chief Complaint
-
Right lower extremity swelling and redness
History of Present Illness
This is a 79-year-old with past medical history of CVA with residual right-sided weakness, prior DVT, chronic lymphocytic leukemia in remission, BPH status post suprapubic catheter, hypertension, hyperlipidemia who presents to the emergency
department with recurrent swelling and erythema of the right lower extremity.
Patient was seen in for similar presentation when she had cellulitis of right lower leg. Time she was treated initially as an outpatient with ampicillin and doxycycline. There was no improvement and she was admitted to the hospital. Ultimately
she was discharged on Keflex. Over the last few days the patient has had increasing redness and swelling. He denied having any pain. He denied having any fevers or chills. He has been no falls or other injuries. He has not started on any
outpatient antibiotics.
Patient reports lower abdominal fold (at the level of the suprapubic catheter) and bilateral groin rash for the last month. 8 pruritic. No tenderness to palpation.
In the ED he was afebrile, blood pressure was 137/76 with a pulse of 84. Oxygen saturation was 90% on room air. CBC was unremarkable. Electrolytes BUN/creatinine were also unremarkable. Patient had x-ray of the right foot which showed a
significant soft tissue edema without abscess, no bony involvement. A ultrasound was negative for a DVT in the right lower extremity.
Medical History
Past Medical History
Past Medical History: Reports Cancer (CLL in remission), CVA, HTN and Hypercholesterolemia
Additional Past Medical History:
BPH
Chronic urinary retention status post suprapubic cath
Past Surgical History: Reports Urological
Social History
Tobacco: Non-smoker
Alcohol: None
Drug: None
Personal:
Living: With Family
Employment: Retired
Family History
Family History: Not pertinent
Allergies / Home Medications
Allergies reflects when Allergies were last updated in [facility].
Home Medications with original date entered in [facility]
Allergy/Medication List:
Allergies
Allergy/AdvReac Type Severity Reaction Status Date / Time
No Known Allergies Allergy Verified 08/26/24 14:51
Home Medications
amlodipine 5 mg tablet 5 mg PO DAILY Blood pressure 08/01/21
aspirin 81 mg chewable tablet 81 mg PO DAILY Blood clot prevention/tx 08/01/21
lisinopril 10 mg tablet 10 mg PO DAILY Blood pressure 08/01/21
tamsulosin 0.4 mg capsule 0.4 mg PO DAILY Urinary issue 08/01/21
ferrous sulfate 325 mg (65 mg iron) tablet (Feosol) 325 mg PO DAILY Supplement 10/09/21
cetirizine 10 mg tablet (Zyrtec) 10 mg PO BID Allergies 06/08/22
atorvastatin 80 mg tablet 80 mg PO DAILY High Cholesterol 08/27/22
acetaminophen 500 mg tablet (Tylenol Extra Strength) 1,000 mg PO HS Pain 08/20/24
fluoxetine 40 mg capsule 40 mg PO DAILY Mental Health/Anxiety 08/20/24
tramadol 25 mg tablet 25 mg PO BIDPRN PRN mod sev pain #10 tabs 08/23/24
cephalexin 500 mg capsule 500 mg PO QID 7 days #28 caps 08/28/24
potassium chloride 20 mEq tablet,extended release(part/cryst) (Klor-Con M) 40 meq (2 x 20 mEq) PO BID Supplement #30 tabs 08/28/24
Review of Systems
-
History Source: Patient
Constitutional: Reports No Symptoms
EENT: Reports No Symptoms
Respiratory: Reports No Symptoms
Cardiac: Reports No Symptoms
Abdomen/GI: Reports No Symptoms
: Reports No Symptoms
Musculoskeletal: Reports Edema
Skin: Reports Rash (Suprapubic groin rash, bilateral inguinal rash, )
Neurological: Reports No Symptoms
Endocrine: Reports No Symptoms
Hematologic/Lymphatic: Reports No Symptoms
Psych: Reports No Symptoms
Physical Exam
Vital Signs
Vital Signs
Temp Pulse Resp BP Pulse Ox
98.1 F 84 20 137/76 90
11/25/24 15:55 11/25/24 23:30 11/25/24 21:15 11/25/24 23:00 11/25/24 23:30
Physical Exam
General: Well Developed, Well Nourished and No Apparent Distress
HEENT: NormoCephalic, Anicteric, Moist mucous membranes and Atraumatic
Respiratory: Clear
Cardiac: S1/S2 and Regular Rhythm
Breast: Deferred by me
GI: Soft, Non Tender and Non Distended
Rectal: Deferred by Provider
Genito-urinary: Suprapubic Tube and Other (Suprapubic rule rash, bilateral inguinal rash)
Musculoskeletal: No Clubbing, No Cyanosis, Edema, Left Lower Extremity (1+) and Edema, Right Lower Extremity (2+, foot swelling with distal erythema, no tenderness. No fluid collection or abscess.)
Neuro: AO x 3
Hematologic/Lymphatic: No Lymphadenopathy
Psych: Calm
Laboratory Results
-
11/25/24 22:39
11/25/24 16:08
Laboratory Results
Total Bilirubin 0.7 mg/dl (0.2-1.3) 11/25/24 16:08
AST 25 U/L (17-59) 11/25/24 16:08
ALT 24 U/L (0-50) 11/25/24 16:08
Alkaline Phosphatase 114 U/L (38-126) 11/25/24 16:08
Data Reviewed
-
Diagnostic Radiology: Report Reviewed by me
Lab Data: Labs Reviewed by me
Old Records: Reviewed
Impression/Plan
-
IMPRESSION:
79-year-old with history of CVA, residual right-sided hemiparesis, urinary retention status post prepubic catheter, prior DVT, expressive aphasia who presents to the emergency department with recurrent swelling and erythema of the right lower
extremity now having signs of cellulitis in the right foot. No bony involvement. No subcutaneous fluid collection or any evidence of an abscess. Ultrasound negative for DVT. Suspect cellulitis secondary to chronic stasis dermatitis and fungal
degradation of the toes.
PLAN:
1. Cellulitis -no abscess, and no signs of systemic infection. Previously treated with 4 generation cephalosporin in August.
- admit to med/surg
- start ancef iv
- blood cultures and broaden if spike
- keep foot elevated
- needs wound care for proper matt-wrap to prevent swelling
- outpatient foot care for nails
- ID consult.
2. Fungal rash -
- nystatin cream
3. BPH s/p TURP
- suprapubic catheter
- continue flomax
- no signs of active infection.
4. h/o CVA with residual right hemiplegia and aphasia
- continue aspirin / statin
- bed bound
DVT PPX - lovenox sq
Code status - full code
[2024-11-26] MEDS: ZOSYN 50 IV (00:46)
[2024-11-26 02:05] VITALS: BP 152/84
[2024-11-26 02:13] VITALS: BMI 33.0
--- NOTE | 2024-11-26 03:11 | PTCARENOTE ---
Received pt from ED into room 2131. Pt pullover to bed with assist x3. Pt AAOx3. VSS. R sided weakness from prior stroke. Wounds as documented. Suprapubic catheter with leg bag. R leg elevated on pillows. Pt resting comfortably in bed, no complaints
at this time.
[2024-11-26] MEDS: ANCEF 10 IV ×3 (05:54→22:02)
[2024-11-26 06:42] LABS: Hematocrit 34.4 % (39.0-52.0); Hemoglobin 11.5 g/dL (13.0-18.0); Mean Corp Hgb Conc. 33.4 g/dL (33.0-37.0); Mean Corpuscular Hgb 32.9 pg (27.0-31.0); Mean Corpuscular Volume 98.3 fL (80.0-94.0); Mean Platelet Volume 9.8 fL (7.4-10.4); Platelet Count 231 10^3/uL (130-400); Red Cell Dist. Width 13.9 % (11.5-14.5); White Blood Cell Count 7.8 10^3/uL (4.8-10.8)
[2024-11-26 07:24] LABS: Blood Urea Nitrogen 12 mg/dl (9-20); Calcium 8.3 mg/dl (8.4-10.2); Carbon Dioxide 23 mmol/L (22-30); Chloride 106 mmol/L (98-107); Estimated Creatinine Clearance 99 ml/min; Glucose 82 mg/dl (70-99); Potassium 3.6 mmol/L (3.5-5.1); Sodium 138 mmol/L (135-145); eGFR > 60.00
[2024-11-26 07:51] VITALS: BP 139/70
[2024-11-26] MEDS: ZYRTEC 10 MG PO ×2 (08:39→20:10)
[2024-11-26] MEDS: LOW STRENGTH ASPIRIN 81 MG PO (08:39)
[2024-11-26] MEDS: ZESTRIL 10 MG PO (08:40)
[2024-11-26] MEDS: NORVASC 5 MG PO (08:40)
[2024-11-26] MEDS: LIPITOR 80 MG PO (08:41)
[2024-11-26] MEDS: FLOMAX 0.4 MG PO (08:41)
[2024-11-26] MEDS: PROZAC 40 MG PO (08:41)
[2024-11-26] MEDS: FEOSOL 325 MG PO (08:41)
[2024-11-26] MEDS: DESENEX/MITRAZOL/ZEASORB 1 APPLIC TOPICAL ×2 (08:56→20:10)
--- NOTE | 2024-11-26 11:15 | W.PN.UPDATE ---
Update Note
Progress Note Update
Non-billable addendum (H&P submitted 12 AM)
Denies any current complaints
Assessment:
RLE cellulitis
Right lower extremity lymphedema
Right lower extremity erythroderma
- recurrent cellulitis
- treated in August 2024
- Xray no osteomyelitis. DVT study negative.
- continue IV Ancef
- Elevation/Compression as tolerated
- ID consulted
- wound care consulted
bilateral fungal groin rash
- continue Desenex
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
HLD
- continue ASA/Statin
Essential HTN
- continue SAI
HX of CLL in remission
BPH s/p TURP
- chronic catheter
- continue Flomax
Hx of Carotid stenosis
Depression on Prozac
DVT ppx: Lovenox
Code: Full
--- NOTE | 2024-11-26 11:48 | CON.ID ---
Consultation
-
Date/Time Consultation Requested: November 26, 2024 0147
Date/Time Consultation Performed: November 26, 2024 1150
Requesting Provider: Dr. Delvin Low
Performing Provider: Dr. Ayla Jerez
Reason for Consultation: Recurrent cellulitis
Chief Complaint / Past History
Chief Complaint
Right foot blister with pus like drainage
History of Present Illness
History obtained from the patient as well as from his at bedside. 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
who presented to the hospital yesterday due to right foot redness. Patient was recently here in June and August for similar condition�right foot cellulitis. In early August he was on IV cefazolin then discharged on oral cephalexin. Per
the redness did improve. However he continues to have significant dryness of the skin for which she applies moisturizer every other day as well as soaking the foot. Patient does not like wearing compression stocking. He developed right foot edema
with blister on top of his foot as well as the toe. These blisters open initially draining clear yellow fluid. However the fluid then turned thick pus like. Also does increase redness from his baseline discoloration. therefore brought him
to the hospital. No fevers or chills. He is currently on cefazolin.
Past History
Additional Past Medical History:
Hx CVA with right residual
HTN
Dyslipidemia
Hx CLL, treated
BPH, Chronic Suprapubic catheter
Carotid stenosis
RLE lymphedema since right LN resection
Ambulatory dysfunction
Additional Past Surgical History:
TURP
Suprapubic catheter
Carotid stenting
Cataract surgery
Allergy History:
No Known Allergies Allergy (Verified 08/26/24 14:51)
Medications Reviewed: Yes
Current Antibiotics:
Cefazolin
Social History
Tobacco: Former Smoker
Alcohol: None
Drug: None
Personal:
Living: With Family
Employment: Retired
Family History
Family History: Not Pertinent
Review of Systems
Review of Systems
General: Negative Fever or Chills
Cardiovascular: Negative Chest Pain
Respiratory: Negative Dyspnea or Cough
Gasteroenterology: Negative Nausea, Vomiting or Diarrhea
Genital / Urological: Negative Dysuria or Flank Pain
Endocrine: Negative Weakness
Neurological: Negative Dizziness
All systems: All other systems were reviewed and were negative
Vital Signs
Temp Pulse Resp BP Pulse Ox
98.2 F 85 17 139/70 93
11/26/24 07:51 11/26/24 08:40 11/26/24 07:51 11/26/24 08:40 11/26/24 07:51
Physical Exam
Physical Exam
Constitutional: No Acute Distress and Comfortable
Eyes: No Conjunctival Hemorrhage and Sclera Anicteric
Cardiovascular: Regular Rate and S1/S2
Pulmonary: Clear
Gastrointestinal: Soft, Non Tender, Non Distended and Normal Bowel Sounds
Genito-Urinary: Barrios and Clear Urine; Negative CVA Tenderness
Extremities: Edema (RLE lymphedema) and Other (Right forefoot to toes extremely dry skin, mild erythema, + dried honey colored exudate over previous blister forefoot, distal right hallux with dark erythema)
Lab / Diagnostic Study Results
11/26/24 05:52
11/26/24 05:52
Abs Immat Gran (auto) 0.1 10^3/uL (0-0.05) H 11/25/24 22:39
Absolute Neuts (auto) 7.6 10^3/uL (1.4-6.5) H 11/25/24 22:39
Absolute Lymphs (auto) 1.1 10^3/uL (1.2-3.4) L 11/25/24 22:39
Absolute Monos (auto) 0.8 10^3/uL (0.1-0.6) H 11/25/24 22:39
Absolute Basos (auto) 0.1 10^3/uL (0-0.2) 11/25/24 22:39
Immature Gran % 0.5 % (0-0.5) 11/25/24 22:39
Neutrophils % 76.0 % (42.2-75.2) H 11/25/24 22:39
Lymphocytes % 11.4 % (20.5-51.1) L 11/25/24 22:39
Monocytes % 8.3 % (1.7-9.3) 11/25/24 22:39
Eosinophils % 3.2 % (0-6) 11/25/24 22:39
Basophils % 0.6 % (0-2) 11/25/24 22:39
ESR 18 mm/hour (0-20) 11/25/24 22:39
C-Reactive Protein 12.60 mg/L (0.0-10.00) H 11/25/24 16:08
Microbiology Results
Micro:
11/26/24 02:40 MRSA Screen - Pending
Nose
Assessment / Plan
# Recurrent cellulitis of right forefoot
# Chronic RLE lymphedema
- Emphasized the importance of compression to reduce edema/blister formation which can lead to wounds
- Moisturize dry skin with Lac-Hydrin BID.
- Tubigrip and leg elevation.
- Continue cefazolin for now.
# Conditions prior to admission
Hx CVA with right residual
HTN
Dyslipidemia
Hx CLL, treated
BPH, Chronic Suprapubic catheter
Carotid stenosis
RLE lymphedema since right LN resection
Ambulatory dysfunction
[2024-11-26] MEDS: LAC HYDRIN, AM LACTIN LOTION 1 APPLIC TOPICAL ×2 (13:35→20:10)
[2024-11-26 15:00] VITALS: BP 150/71
[2024-11-26] MEDS: LOVENOX 40 MG SC (18:30)
[2024-11-26 23:37] VITALS: BP 149/63
[2024-11-27] MEDS: ANCEF 10 IV ×3 (06:25→22:04)
[2024-11-27 06:45] LABS: Hematocrit 36.1 % (39.0-52.0); Hemoglobin 12.3 g/dL (13.0-18.0); Mean Corp Hgb Conc. 34.1 g/dL (33.0-37.0); Mean Corpuscular Hgb 32.8 pg (27.0-31.0); Mean Corpuscular Volume 96.3 fL (80.0-94.0); Platelet Count 227 10^3/uL (130-400); Red Blood Cell Count 3.75 10^6/uL (4.70-6.10); Red Cell Dist. Width 13.7 % (11.5-14.5); White Blood Cell Count 7.9 10^3/uL (4.8-10.8)
[2024-11-27 07:09] LABS: Blood Urea Nitrogen 9 mg/dl (9-20); Calcium 8.1 mg/dl (8.4-10.2); Carbon Dioxide 26 mmol/L (22-30); Chloride 103 mmol/L (98-107); Estimated Creatinine Clearance 99 ml/min; Glucose 87 mg/dl (70-99); Potassium 3.3 mmol/L (3.5-5.1); Sodium 138 mmol/L (135-145); eGFR > 60.00
[2024-11-27 07:30] VITALS: BP 147/68
[2024-11-27] MEDS: LOW STRENGTH ASPIRIN 81 MG PO (08:05)
[2024-11-27] MEDS: PROZAC 40 MG PO (08:05)
[2024-11-27] MEDS: ZESTRIL 10 MG PO (08:05)
[2024-11-27] MEDS: LIPITOR 80 MG PO (08:05)
[2024-11-27] MEDS: FLOMAX 0.4 MG PO (08:05)
[2024-11-27] MEDS: NORVASC 5 MG PO (08:05)
[2024-11-27] MEDS: ZYRTEC 10 MG PO ×2 (08:05→20:05)
[2024-11-27] MEDS: FEOSOL 325 MG PO (08:05)
[2024-11-27] MEDS: DESENEX/MITRAZOL/ZEASORB 1 APPLIC TOPICAL ×2 (08:06→20:01)
[2024-11-27] MEDS: LAC HYDRIN, AM LACTIN LOTION 1 APPLIC TOPICAL ×2 (08:06→20:01)
[2024-11-27] MEDS: KCL 40 MEQ PO ×2 (09:05→20:05)
--- NOTE | 2024-11-27 11:36 | W.PN.ID1 ---
Date of Service
Date of Service: November 27, 2024
Today's Communication
Continue cefazolin.
Assessment / Plan
# Recurrent cellulitis of right forefoot
# Chronic RLE lymphedema
- Emphasized the importance of compression to reduce edema/blister formation which can lead to wounds
Continue Tubigrip and leg elevation.
- Continue Moisturize dry skin with Lac-Hydrin BID - improving
- Continue cefazolin ( d2) for now.
# Conditions prior to admission
Hx CVA with right residual
HTN
Dyslipidemia
Hx CLL, treated
BPH, Chronic Suprapubic catheter
Carotid stenosis
RLE lymphedema since right LN resection
Ambulatory dysfunction
Chief Complaint
-: Cellulitis
Subjective / Review of Systems
at bedside.
Pt reports foot better.
Vital Signs / Physical Exam
Vital Signs
Vital Signs
Temp Pulse Resp BP Pulse Ox
98.4 F 79 17 147/68 92
11/27/24 07:30 11/27/24 08:05 11/27/24 07:30 11/27/24 08:05 11/27/24 08:23
Physical Exam
Constitutional: No Acute Distress and Comfortable
Pulmonary: Clear
Gastrointestinal: Soft, Non Tender and Non Distended
Genito-Urinary: Barrios and Clear Urine
Extremities: Edema (RLE lymphedema)
Wound: Other (Right forefoot extensive dry skin much improved with topical ammonium lactate. Erythema mild. No drainage. Right great toe with dark eschar on callous)
Neurological: AO x 3
Objective Data
Lab Data
Lab Results
11/27/24 05:25
11/27/24 05:25
ESR 18 mm/hour (0-20) 11/25/24 22:39
Estimated Creat Clear 99 ml/min 11/27/24 05:25
Total Bilirubin 0.7 mg/dl (0.2-1.3) 11/25/24 16:08
AST 25 U/L (17-59) 11/25/24 16:08
ALT 24 U/L (0-50) 11/25/24 16:08
Alkaline Phosphatase 114 U/L (38-126) 11/25/24 16:08
C-Reactive Protein 12.60 mg/L (0.0-10.00) H 11/25/24 16:08
Most recent labs reviewed.
Micro Results:
11/26/24 02:40 MRSA Screen - Final
Nose No Methicillin Resistant Staphylococcus aureus isolated.
--- NOTE | 2024-11-27 12:06 | W.PN.HOSP.TC ---
Today's Communication/Plan
-
continue IV Abx per ID
Assessment / Plan
Assessment / Plan
Assessment:
RLE cellulitis
Right lower extremity lymphedema
Right lower extremity erythroderma
- recurrent cellulitis
- treated in August 2024
- Xray no osteomyelitis. DVT study negative.
- continue IV Ancef, day 2
- Elevation/Compression as tolerated
- ID following
- wound care consulted
bilateral fungal groin rash
- continue Desenex
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
HLD
- continue ASA/Statin
Essential HTN
- continue SAI
HX of CLL in remission
BPH s/p TURP
- chronic suprapubic cath
- continue Flomax
Hx of Carotid stenosis
Depression on Prozac
DVT ppx: Lovenox
Code: Full
Anticipated Discharge: > 48 hours
Subjective/Interval History
-
Date of Service: November 27, 2024
less edema, redness to leg per patient
Objective Data
-
Labs:
Laboratory Results
11/27/24
05:25
WBC 7.9
Hgb 12.3 L
Hct 36.1 L
Plt Count 227
Sodium 138
Potassium 3.3 L
Chloride 103
Carbon Dioxide 26
BUN 9
Creatinine 0.8
Glucose 87
Calcium 8.1 L
Vital Signs:
Vital Signs
Temp Pulse Resp BP Pulse Ox
98.4 F 79 17 147/68 92
11/27/24 07:30 11/27/24 08:05 11/27/24 07:30 11/27/24 08:05 11/27/24 08:23
I&O
0111/27/24 11/28/24
06:59 06:59 06:59
Intake Total 240 / 240 1440 / 1440
Output Total 1100 / 1100 3350 / 3350
Balance -860 / -860 -1909 / -1909
Physical Exam
-
General: No Apparent Distress
HEENT: Normocephalic and Atraumatic
Respiratory: Negative Wheezes
Cardiac: Regular Rhythm and S1/S2
GI: Soft and Nontender
Musculoskeletal: Other (RLE Lymphedema and mild erythema)
Neuro: AO x 3
Hematologic / Lymphatic: No Lymphadenopathy
Psych: Calm
Data Reviewed
-
Total Time Spent with Patient (in minutes): 45
Labs: Labs Reviewed by me
--- NOTE | 2024-11-27 13:24 | PTCARENOTE ---
pt oob to the chair x2. fiber filled boots in place with SUMIT stockings. pt with MASD to groin, b/l interior thighs and gonzalo area. localized erythema. Antifungal powder applied and 4x4 placed around suprapubic. pt in bed with static air overlay and
oob to the chair has a air cushion.
--- NOTE | 2024-11-27 15:22 | CM ---
Late entry
Met with pt, his and daughter at bedside
Pt reports he lives with his , daughter, grandson, daughter in a 1 story home with ramp access
Pt requires assist with ADl's, able to feed self, transfer to wheel chair with assist, wheel chair bound
DME - wheel chair, single point cane
SNF - [facility] in past
HH - current with [facility]
PCP - [facility]
Pharm - [facility]
Plan - anticipate home with VN vs SNF
[2024-11-27 15:35] VITALS: BP 121/52
[2024-11-27] MEDS: LOVENOX 40 MG SC (17:16)
[2024-11-27 23:30] VITALS: BP 125/54
[2024-11-28] VITALS: BP 155/70
[2024-11-28] MEDS: ANCEF 10 IV ×3 (05:44→22:47)
[2024-11-28 07:25] LABS: Hematocrit 37.4 % (39.0-52.0); Hemoglobin 12.3 g/dL (13.0-18.0); Mean Corp Hgb Conc. 32.9 g/dL (33.0-37.0); Mean Corpuscular Hgb 32.5 pg (27.0-31.0); Mean Corpuscular Volume 98.9 fL (80.0-94.0); Mean Platelet Volume 9.9 fL (7.4-10.4); Platelet Count 236 10^3/uL (130-400); Red Blood Cell Count 3.78 10^6/uL (4.70-6.10); Red Cell Dist. Width 13.9 % (11.5-14.5); White Blood Cell Count 7.2 10^3/uL (4.8-10.8)
[2024-11-28 07:27] LABS: Blood Urea Nitrogen 11 mg/dl (9-20); Calcium 8.1 mg/dl (8.4-10.2); Carbon Dioxide 28 mmol/L (22-30); Chloride 103 mmol/L (98-107); Estimated Creatinine Clearance 99 ml/min; Glucose 87 mg/dl (70-99); Potassium 3.7 mmol/L (3.5-5.1); Sodium 139 mmol/L (135-145); eGFR > 60.00
[2024-11-28 07:38] VITALS: BP 152/68
--- NOTE | 2024-11-28 08:14 | VNURNOTE ---
Chart reviewed. Patient is current with [facility] and PT. Will continue to follow hospital course and DC plans.
[2024-11-28] MEDS: LIPITOR 80 MG PO (09:41)
[2024-11-28] MEDS: LOW STRENGTH ASPIRIN 81 MG PO (09:42)
[2024-11-28] MEDS: NORVASC 5 MG PO (09:42)
[2024-11-28] MEDS: ZYRTEC 10 MG PO ×2 (09:42→20:23)
[2024-11-28] MEDS: FEOSOL 325 MG PO (09:42)
[2024-11-28] MEDS: ZESTRIL 10 MG PO (09:42)
[2024-11-28] MEDS: FLOMAX 0.4 MG PO (09:43)
[2024-11-28] MEDS: KCL 40 MEQ PO ×2 (09:43→20:23)
[2024-11-28] MEDS: LAC HYDRIN, AM LACTIN LOTION 1 APPLIC TOPICAL ×2 (09:44→20:23)
[2024-11-28] MEDS: DESENEX/MITRAZOL/ZEASORB 1 APPLIC TOPICAL ×2 (09:44→20:22)
[2024-11-28] MEDS: PROZAC 40 MG PO (10:03)
--- NOTE | 2024-11-28 10:24 | WOUNDNOTE ---
[facility] RN note: Patient admitted with cellulitis
See H&P for complete history.
PMH: CVA, HTN, urinary retention with supra pubic catheter, ambulatory dysfunction.
Wound Location and type/assessment: Patient admitted with cellulitis eft LE. At time of assessment no open wounds were noted. Right foot with dry skin, some scabbed areas on. Patient reports following with Purchasing Assistant every month. Patient assessed
by ID over the weekend and orders for wound care and compression added. Patient with healed wound to buttocks, likely the result of friction/shearing. Fungal rash to groin and antifungal powder in use. Sacrum and heels intact.
Appetite: Good
Pressure redistribution devices in place: Static air overlay, air cushion to chair.
Plan: Wound are as ordered for open areas. Lac-hytrin and compression applied as ordered. Patient should continue to follow up with technician automated equipment. Discharge instructions and RN updated.
Note to case management of equipment requested for discharge:
Recommend follow up at wound care center upon discharge.
--- NOTE | 2024-11-28 10:52 | WOUNDNOTE ---
RIGHT FOOT/TOES PLANTAR ASPECT
[2024-11-28 11:13] VITALS: BP 149/81
--- NOTE | 2024-11-28 11:39 | W.PN.ID1 ---
Date of Service
Date of Service: November 28, 2024
Today's Communication
Ordered LE ANNA/arterial duplex.
Assessment / Plan
# Recurrent cellulitis of right forefoot
# Chronic RLE lymphedema
-Continue Tubigrip and leg elevation.
- Continue Moisturize dry skin with Lac-Hydrin BID - improving
- Nonpalpable pedal pulse. Ordered LE ANNA/arterial duplex.
- Continue cefazolin ( d3) for now.
- Anticipate transition to po abx tomorrow.
# Conditions prior to admission
Hx CVA with right residual
HTN
Dyslipidemia
Hx CLL, treated
BPH, Chronic Suprapubic catheter
Carotid stenosis
RLE lymphedema since right LN resection
Ambulatory dysfunction
Chief Complaint
-: Cellulitis
Subjective / Review of Systems
No complaints.
Vital Signs / Physical Exam
Vital Signs
Vital Signs
Temp Pulse Resp BP Pulse Ox
98.1 F 77 18 152/68 93
11/28/24 07:38 11/28/24 09:42 11/28/24 07:38 11/28/24 09:42 11/28/24 07:38
Physical Exam
Constitutional: No Acute Distress and Comfortable
Pulmonary: Clear
Gastrointestinal: Soft, Non Tender, Non Distended and Normal Bowel Sounds
Genito-Urinary: Barrios and Clear Urine
Extremities: Edema (lymphedema RLE) and Pulses (nonpalpable right foot)
Wound: Other (Right great toe with scab. Right forefoot dry skin improving, stable erythema)
Neurological: AO x 3
Objective Data
Lab Data
Lab Results
11/28/24 06:13
11/28/24 06:13
ESR 18 mm/hour (0-20) 11/25/24 22:39
Estimated Creat Clear 99 ml/min 11/28/24 06:13
Total Bilirubin 0.7 mg/dl (0.2-1.3) 11/25/24 16:08
AST 25 U/L (17-59) 11/25/24 16:08
ALT 24 U/L (0-50) 11/25/24 16:08
Alkaline Phosphatase 114 U/L (38-126) 11/25/24 16:08
C-Reactive Protein 12.60 mg/L (0.0-10.00) H 11/25/24 16:08
Most recent labs reviewed.
Micro Results:
11/26/24 02:40 MRSA Screen - Final
Nose No Methicillin Resistant Staphylococcus aureus isolated.
--- NOTE | 2024-11-28 12:41 | CM ---
Reviewed the chart notes and spoke with the patient at the bedside. Reviewed PT recommendation of SNF/rehab. Patient adamant that he will not go to rehab. Per patient, his and [id number] 'handle me just fine'. CM spoke with the
patient's spouse via telephone. Spouse only interested in VN services. VN only. Refused PT/OT. CM continues to be available to patient/family and is monitoring medical plan for needs at discharge.
Plan: Discharge to home with VN services.
--- NOTE | 2024-11-28 14:19 | W.PN.HOSP.TC ---
Today's Communication/Plan
-
ANNA/TBI US
continu Ancef per ID
Assessment / Plan
Assessment / Plan
Assessment:
RLE cellulitis
Right lower extremity lymphedema
Right lower extremity erythroderma
- recurrent cellulitis
- treated in August 2024
- Xray no osteomyelitis. DVT study negative.
- ANNA/TBI ordered
- continue IV Ancef, day 3
- Elevation/Compression as tolerated
- ID following
- wound care following
bilateral fungal groin rash
- continue Desenex
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
HLD
- continue ASA/Statin
Essential HTN
- continue SAI
HX of CLL in remission
BPH s/p TURP
- chronic suprapubic cath
- continue Flomax
Hx of Carotid stenosis
Depression on Prozac
DVT ppx: Lovenox
Code: Full
Anticipated Discharge: 24 - 48 hours
Subjective/Interval History
-
Date of Service: November 28, 2024
no complaints
Objective Data
-
Labs:
Laboratory Results
11/28/24
06:13
WBC 7.2
Hgb 12.3 L
Hct 37.4 L
Plt Count 236
Sodium 139
Potassium 3.7
Chloride 103
Carbon Dioxide 28
BUN 11
Creatinine 0.8
Glucose 87
Calcium 8.1 L
Vital Signs:
Vital Signs
Temp Pulse Resp BP Pulse Ox
98.1 F 77 18 152/68 99
11/28/24 07:38 11/28/24 09:42 11/28/24 07:38 11/28/24 09:42 11/28/24 12:58
I&O
11/27/24 11/28/24 11/29/24
06:59 06:59 06:59
Intake Total 1440 / 1440 1919 / 1919
Output Total 3350 / 3350 1500 / 1500
Balance -1909 / -1909 420 / 420
Physical Exam
-
General: No Apparent Distress
HEENT: Normocephalic and Atraumatic
Respiratory: Negative Wheezes
Cardiac: Regular Rhythm and S1/S2
GI: Soft and Nontender
Skin: Other (stable to improving erythema)
Neuro: AO x 3
Psych: Calm
Data Reviewed
-
Total Time Spent with Patient (in minutes): 42
Labs: Labs Reviewed by me
[2024-11-28] MEDS: LOVENOX 40 MG SC (18:31)
[2024-11-28 23:55] VITALS: BP 141/74
[2024-11-29] MEDS: ANCEF 10 IV ×2 (05:39→15:00)
[2024-11-29 07:30] VITALS: BP 142/68
[2024-11-29] MEDS: PROZAC 40 MG PO (08:15)
[2024-11-29] MEDS: LIPITOR 80 MG PO (08:15)
[2024-11-29] MEDS: FEOSOL 325 MG PO (08:16)
[2024-11-29] MEDS: ZYRTEC 10 MG PO (08:16)
[2024-11-29] MEDS: ZESTRIL 10 MG PO (08:16)
[2024-11-29] MEDS: NORVASC 5 MG PO (08:18)
[2024-11-29] MEDS: FLOMAX 0.4 MG PO (08:18)
[2024-11-29] MEDS: KCL 40 MEQ PO (08:18)
[2024-11-29] MEDS: LOW STRENGTH ASPIRIN 81 MG PO (08:20)
[2024-11-29 08:22] LABS: Hematocrit 37.6 % (39.0-52.0); Hemoglobin 12.5 g/dL (13.0-18.0); Mean Corp Hgb Conc. 33.2 g/dL (33.0-37.0); Mean Corpuscular Hgb 32.7 pg (27.0-31.0); Mean Corpuscular Volume 98.4 fL (80.0-94.0); Mean Platelet Volume 9.7 fL (7.4-10.4); Platelet Count 237 10^3/uL (130-400); Red Blood Cell Count 3.82 10^6/uL (4.70-6.10); Red Cell Dist. Width 13.8 % (11.5-14.5)
[2024-11-29] MEDS: LAC HYDRIN, AM LACTIN LOTION 1 APPLIC TOPICAL (08:28)
[2024-11-29] MEDS: DESENEX/MITRAZOL/ZEASORB 1 APPLIC TOPICAL (08:29)
[2024-11-29 08:39] LABS: Blood Urea Nitrogen 11 mg/dl (9-20); Calcium 8.3 mg/dl (8.4-10.2); Carbon Dioxide 27 mmol/L (22-30); Chloride 105 mmol/L (98-107); Estimated Creatinine Clearance 113 ml/min; Glucose 86 mg/dl (70-99); Potassium 3.9 mmol/L (3.5-5.1); Sodium 139 mmol/L (135-145); eGFR > 60.00
--- NOTE | 2024-11-29 10:38 | CM ---
Reviewed the chart notes and spoke with the patient at the bedside. IMM reviewed. The patient anticipates being discharged to home today with VN services. CM continues to be available to patient/family and is monitoring medical plan for needs
at discharge.
Plan: Discharge to home with VN services. Transport will be required.
Medical necessity and transport forms on chart.
--- NOTE | 2024-11-29 10:50 | W.PN.ID1 ---
Date of Service
Date of Service: November 29, 2024
Today's Communication
Transition cefazolin (d4) to cephalexin 500mg po qid through 12/05.
Assessment / Plan
# Recurrent cellulitis of right forefoot
# Chronic RLE lymphedema
-Continue Tubigrip and leg elevation.
- Continue Moisturize dry skin with Lac-Hydrin BID
- LE ANNA/arterial duplex no significant stenosis.
- Transition cefazolin (d4) to cephalexin 500mg po qid through 12/05.
# Conditions prior to admission
Hx CVA with right residual
HTN
Dyslipidemia
Hx CLL, treated
BPH, Chronic Suprapubic catheter
Carotid stenosis
RLE lymphedema since right LN resection
Ambulatory dysfunction
Chief Complaint
-: Cellulitis
Subjective / Review of Systems
Feels well.
Vital Signs / Physical Exam
Vital Signs
Vital Signs
Temp Pulse Resp BP Pulse Ox
97.7 F 79 16 142/68 92
11/29/24 07:30 11/29/24 08:18 11/29/24 07:30 11/29/24 08:18 11/29/24 07:30
Physical Exam
Constitutional: No Acute Distress and Comfortable
Pulmonary: Clear
Gastrointestinal: Soft, Non Tender and Non Distended
Genito-Urinary: Barrios and Clear Urine
Extremities: Edema (RLE decreased) and Erythema (Right forefooot decreased)
Neurological: AO x 3
Objective Data
Lab Data
Lab Results
11/29/24 07:13
11/29/24 07:13
ESR 18 mm/hour (0-20) 11/25/24 22:39
Estimated Creat Clear 113 ml/min 11/29/24 07:13
Total Bilirubin 0.7 mg/dl (0.2-1.3) 11/25/24 16:08
AST 25 U/L (17-59) 11/25/24 16:08
ALT 24 U/L (0-50) 11/25/24 16:08
Alkaline Phosphatase 114 U/L (38-126) 11/25/24 16:08
C-Reactive Protein 12.60 mg/L (0.0-10.00) H 11/25/24 16:08
Most recent labs reviewed.
Micro Results:
11/26/24 02:40 MRSA Screen - Final
Nose No Methicillin Resistant Staphylococcus aureus isolated.
Care Review
Plan reviewed with: Physician (Dr. Vaibhav Low)
--- NOTE | 2024-11-29 11:39 | W.PN.HOSP.TC ---
Today's Communication/Plan
-
dc home/VN today
Assessment / Plan
Assessment / Plan
Assessment:
RLE cellulitis
Right lower extremity lymphedema
Right lower extremity erythroderma
- recurrent cellulitis
- treated in August 2024
- Xray no osteomyelitis. DVT study negative.
- ANNA/TBI no signifant stenosis
- Elevation/Compression as tolerated
- wound care following; continue Lac-Hydrin BID
- DC per ID on cephalexin 500mg po qid through 12/05.
bilateral fungal groin rash
- continue Desenex
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
HLD
- continue ASA/Statin
Essential HTN
- continue SAI
HX of CLL in remission
BPH s/p TURP
- chronic suprapubic cath
- continue Flomax
Hx of Carotid stenosis
Depression on Prozac
DVT ppx: Lovenox
Code: Full
More than 30 minutes spent in discharge including
Final examination of the patient
Summarizing hospital stay
Instructions for continuing care to all relevant caregivers
Preparation of discharge records, prescriptions, and referral forms
Total time spent (in minutes):41
Anticipated Discharge: Today
Subjective/Interval History
-
Date of Service: November 29, 2024
no new complaints today
Objective Data
-
Labs:
Laboratory Results
11/29/24
07:13
WBC 8.0
Hgb 12.5 L
Hct 37.6 L
Plt Count 237
Sodium 139
Potassium 3.9
Chloride 105
Carbon Dioxide 27
BUN 11
Creatinine 0.7
Glucose 86
Calcium 8.3 L
Vital Signs:
Vital Signs
Temp Pulse Resp BP Pulse Ox
97.7 F 79 16 142/68 92
11/29/24 07:30 11/29/24 08:18 11/29/24 07:30 11/29/24 08:18 11/29/24 07:30
I&O
11/28/24 11/29/24 11/30/24
06:59 06:59 06:59
Intake Total 1920 / 1920 1200 / 1200
Output Total 1500 / 1500 2495 / 2495
Balance 420 / 420 -1295 / -1295
Physical Exam
-
General: No Apparent Distress
HEENT: Normocephalic and Atraumatic
Respiratory: Negative Wheezes
Cardiac: Regular Rhythm and S1/S2
GI: Soft and Nontender
Musculoskeletal: No Edema and Other (improved erythema)
Neuro: AO x 3
Hematologic / Lymphatic: No Lymphadenopathy
Psych: Calm
Data Reviewed
-
Total Time Spent with Patient (in minutes): 41
Labs: Labs Reviewed by me
--- NOTE | 2024-11-29 11:46 | W.DS.TRANS ---
DC Summary - [employer] Home [employer] Consult[employer]
-
Discharge Instructions:
Discharge Diagnosis/Procedures R leg cellulitis with underlying lymphedema
Diet Low Cholesterol
Activity As tolerated
Other Services VN
Instructions:
Stand-Alone Forms:
Changes to Home Medications: No
Discharge Medications:
DC Medications w/original date entered in [facility]
amlodipine 5 mg tablet 5 mg PO DAILY Blood pressure 08/01/21
aspirin 81 mg chewable tablet 81 mg PO DAILY Blood clot prevention/tx 08/01/21
lisinopril 10 mg tablet 10 mg PO DAILY Blood pressure 08/01/21
tamsulosin 0.4 mg capsule 0.4 mg PO DAILY Urinary issue 08/01/21
ferrous sulfate 325 mg (65 mg iron) tablet (Feosol) 325 mg PO DAILY Supplement 10/09/21
cetirizine 10 mg tablet (Zyrtec) 10 mg PO BID Allergies 06/08/22
atorvastatin 80 mg tablet 80 mg PO DAILY High Cholesterol 08/27/22
acetaminophen 500 mg tablet (Tylenol Extra Strength) 1,000 mg PO HS Pain 08/20/24
fluoxetine 40 mg capsule 40 mg PO DAILY Mental Health/Anxiety 08/20/24
potassium chloride 20 mEq tablet,extended release(part/cryst) (Klor-Con M) 40 meq (2 x 20 mEq) PO BID Supplement #30 tabs 08/28/24
ciprofloxacin HCl 500 mg tablet 250 mg PO [id number] PRN for 3 days afte catheriner changes 11/26/24
ammonium lactate 12 % lotion 1 applic topical BID #400 grams 11/29/24
cephalexin 500 mg capsule 500 mg PO QID 7 days #28 caps 11/29/24
miconazole nitrate 2 % topical powder (Miconazorb AF) 1 applic topical BID #85 grams 11/29/24
Home Medication Changes
Pending Results: No
Total time spent discharging patient (in min): 41
[2024-11-29 15:20] VITALS: BP 130/64
[2024-11-29] MEDS: LOVENOX SC (15:53)
== END 2024-11-29 17:55 | disposition home health service (06) | DRG 603 ==
LOC: 2 NORTH 01:29
PROVIDERS: Physician Assistant; ADMITTING PHYSICIAN Internal Medicine; ATTENDING PHYSICIAN Internal Medicine; CONSULT PHYSICIAN Internal Medicine Infectious Disease; EMERGENCY PHYSICIAN Emergency Medicine
DX: L03.115 Cellulitis of right lower limb (principal); I69.351 Hemiplegia and hemiparesis following cerebral infarction affecting right dominant side; C91.11 Chronic lymphocytic leukemia of B-cell type in remission; I89.0 Lymphedema, not elsewhere classified; B35.6 Tinea cruris; I69.320 Aphasia following cerebral infarction; E78.00 Pure hypercholesterolemia, unspecified; I10 Essential (primary) hypertension; F32.A Depression, unspecified; Z79.899 Other long term (current) drug therapy; N40.1 Benign prostatic hyperplasia with lower urinary tract symptoms; Z90.79 Acquired absence of other genital organ(s); Z93.59 Other cystostomy status; Z79.82 Long term (current) use of aspirin; Z74.01 Bed confinement status; S90.821A Blister (nonthermal), right foot, initial encounter; Z87.891 Personal history of nicotine dependence; I65.22 Occlusion and stenosis of left carotid artery; L03.039 Cellulitis of unspecified toe; E03.9 Hypothyroidism, unspecified; Z86.718 Personal history of other venous thrombosis and embolism
CPT/HCPCS: 73630; 80048; 80053; 85025; 85027; 85652; 86140; 87070; 93922; 93925; 93971; 96365; 97162; 97167; 99285

== ENCOUNTER → 2024-12-22 14:17 | Outpatient (REF) | payer MEDICARE, OTHER, SELFPAY | LOC: RAD 14:17 | PROVIDERS: ATTENDING PHYSICIAN Internal Medicine Endocrinology, Diabetes & Metabolism; FAMILY PHYSICIAN Nurse Practitioner | DX: E04.2 Nontoxic multinodular goiter (principal) | CPT/HCPCS: 76536 ==

== ENCOUNTER 2025-01-05 08:13 | Outpatient (RCR) | payer SELFPAY | END 2025-01-05 23:59 | disposition home or self-care (01) | LOC: RPT 08:13 | PROVIDERS: ATTENDING PHYSICIAN Nurse Practitioner | DX: I89.0 Lymphedema, not elsewhere classified (principal); R26.2 Difficulty in walking, not elsewhere classified; Z73.6 Limitation of activities due to disability; I69.351 Hemiplegia and hemiparesis following cerebral infarction affecting right dominant side; I69.320 Aphasia following cerebral infarction | CPT/HCPCS: 97163; 97530; 97760 ==

== ENCOUNTER → 2025-01-18 14:20 | Outpatient (REF) | payer MEDICARE, OTHER, SELFPAY ==
[2025-01-18 16:29] LABS: Free T3 3.96 pg/ml (2.77-5.27); Free T4 0.98 ng/dl (0.78-2.19)
[2025-01-18 16:42] LABS: TSH 0.46 uIU/ml (0.47-4.68)
[2025-01-18 16:58] LABS: ALT (SGPT) 20 U/L (0-50); AST (SGOT) 22 U/L (17-59); Albumin 4.3 g/dl (3.5-5.0); Alkaline Phosphatase 123 U/L (38-126); Blood Urea Nitrogen 14 mg/dl (9-20); Calcium 8.8 mg/dl (8.4-10.2); Carbon Dioxide 21 mmol/L (22-30); Chloride 103 mmol/L (98-107); Glucose 78 mg/dl (70-99); HDL Cholesterol 46 mg/dl; LDL Cholesterol, Calculated 50 mg/dl; Potassium 4.9 mmol/L (3.5-5.1); Sodium 135 mmol/L (135-145); Total Cholesterol 111 mg/dl (50-199); Total Protein 7.2 g/dl (6.3-8.2); Triglyceride 77 mg/dl (10-149); Very Low Density Lipoprotein 15 mg/dl (0-30); eGFR > 60.00
[2025-01-18 17:19] LABS: LDL Cholesterol, Direct 45 mg/dl
[2025-01-19 10:03] LABS: Glycohemoglobin (HgbA1c) 5.5 % (4.0-5.6)
== END ==
LOC: CLAB 14:20
PROVIDERS: ATTENDING PHYSICIAN Nurse Practitioner
DX: E78.5 Hyperlipidemia, unspecified (principal); R73.01 Impaired fasting glucose
CPT/HCPCS: 36415; 80053; 80061; 83036; 83721; 84439; 84443; 84481

== ENCOUNTER → 2025-02-15 10:24 | Outpatient (REF) | payer MEDICARE, OTHER, SELFPAY ==
[2025-02-15 10:39] VITALS: BP 155/89; BP_SYST 90
== END ==
LOC: RADI 10:24
PROVIDERS: ATTENDING PHYSICIAN Internal Medicine Endocrinology, Diabetes & Metabolism; FAMILY PHYSICIAN Nurse Practitioner
DX: E04.1 Nontoxic single thyroid nodule (principal)
CPT/HCPCS: 88173; 10005

== ENCOUNTER 2025-03-07 02:01 | Inpatient (IN) | payer MEDICARE, OTHER, SELFPAY ==
[2025-03-06 20:36] VITALS: BP 165/81
--- NOTE | 2025-03-06 23:45 | ED.GENMED ---
History of Present Illness
General
Chief Complaint: Skin Problem
Source: patient
Exam Limitations: none
Time Seen by Provider: 03/06/25 23:06
Nursing documentation reviewed up to this point in time: agreed with
History of Present Illness
History of Present Illness:
Patient presents to ED secondary to worsening redness along with swelling over his forehead and left eye, which developed 3 days ago, when he 'opened up' swollen area in the middle of his forehead. That area has scabbed since then, but redness and
subsequent eye swelling has worsened. Denies fever or chills. Patient reports not feeling well with nausea sensation for the past 24 hours. Denies vomiting or diarrhea. Denies headache. Denies recent illness. Patient's medical history
significant for previous stroke with residual right-sided deficit. In addition, per spouse, patient has had multiple skin infections, requiring treatment.
Past History
Past History
ED Past Medical History: Cancer (CLL), CVA (With right sided weakness), HTN, Hypercholesterolemia, Hypothyroidism, Psychiatric (Depression) and Other (MRSA infection, Aphasia, Left carotid stenosis, Urinary retention, )
ED Past Surgical History: Orthopedic (Right knee surgery), Urological (Suprapubic catheter) and Other (cataracts, Hernia); Negative Cardiac
Social History
Tobacco: Former smoker
Alcohol: None
Drug: None
Personal:
Living: with family
Employment: Retired
Family History
Family History: Other (Noncontributory)
Review of Systems
Review of Systems
Allergies reviewed?: Yes
All Other Systems: ROS reviewed and negative except as documented in HPI and ROS
Constitutional: Reports no symptoms; Denies fever
ABD/GI: Reports nausea; Denies vomiting
: Reports no symptoms
Musculoskeletal: Reports no symptoms
Skin: Reports rash
Neurological: Reports no symptoms; Denies headache
Phy Exam
Physical Exam
Physical Exam:
Physical Exam
General: mild distress, not acutely ill. afebrile
Head: nc/at. eomi
Neck: supple. no meningeal signs.
Abdomen: normal bowel sounds. not tender.
Neuro: alert and oriented x 3. no focal neurological deficits
Skin: scabbed linear lesion, nonpainful noted over midforehead with surrounding erythema/extending to left eyelid. mild tenderness to palpation over left eyelid. no active drainage.
Psychiatric: well kept. interactive and cooperative
Extremities: lymphedema, R>L. no calf tenderness.
Course
Orders/Labs/Results
Orders:
Orders
03/06/25 23:52
Basic Metabolic Panel Urgent
Complete Blood Count/With Diff Urgent
Blood Culture Q30M
DYLAN Source: Blood/Venous
Specimen Description:
03/07/25 00:00
Blood Culture Q30M
DYLAN Source: Blood/Venous
Specimen Description:
03/07/25 00:34
Vancomycin [Vancocin] 2,000 mg 0.9% Sodium Chloride 500 ml [Nss] 500 ml IV NOW
03/07/25 01:07
CR Chest - 2 Views Stat
Comment:
Reason For Exam: hypoxia, eval infiltrates, edema
03/07/25 01:45
Admit/Transfer Patient As Directed
Co-Sign Provider:
Level of Care: Inpatient admission
Assign to:: Medical/Surgical
Physician / Group: hospitalist
Diagnosis: cellulitis
Reason for Hospitalization: cellulitis
Expected length of stay greater than two midnights?: Yes
ELOS- Estimated Length of Stay in days: 2
I certify the patient meets the requirements for IP care: Yes
COVID-19 Antigen Stat
Source: Nasal Swab
MRSA Screen Routine
DYLAN Source: Nose
Specimen Description:
03/07/25 01:46
PRN Pain Medication Management As Directed
May give lesser potent ordered pain med per pt: Yes
preference::
Protocol:: Medication orders for pain may be administered in a
manner that supports deferring to patient preference
when the pt is:
- Requesting an ordered lesser potent pain medication.
Least to most potent pain medications are defined
as: acetaminophen < NSAID < tramadol < opioids
(morphine, oxycodone, hydromorphone).
- Requesting a lesser dose of the same medication IF
ORDERED.
- Requesting a less intrusive route of administration
if both routes are prescribed by the provider (PO <
IV).
03/07/25 01:47
Code Status As Directed
Resuscitation Status: Full Code
03/07/25 02:00
Acyclovir [Zovirax Injection] 940 mg 0.9% Sodium Chloride 250 ml [Nss] 250 ml IV ONCE
Flush (0.9% Sodium Chloride) [Flush (Nss)] See Dose Instructions IV PER PROTOCOL
Abnormal Lab Results
03/06/25
23:52
RBC 4.07 L 10^6/uL
(4.70-6.10)
MCV 95.8 H fL
(80.0-94.0)
MCH 32.4 H pg
(27.0-31.0)
Absolute Lymphs (auto) 0.5 L 10^3/uL
(1.2-3.4)
Absolute Monos (auto) 0.8 H 10^3/uL
(0.1-0.6)
Neutrophils % 81.4 H %
(42.2-75.2)
Lymphocytes % 6.8 L %
(20.5-51.1)
Monocytes % 10.0 H %
(1.7-9.3)
Chloride 108 H mmol/L
(98-107)
Carbon Dioxide 21 L mmol/L
(22-30)
BUN 8 L mg/dl
(9-20)
Glucose 122 H mg/dl
(70-99)
03/06/25 23:52
03/06/25 23:52
Vital Signs
Initial and Last Documented VS:
Initial Vital Signs
Temp Pulse Resp BP Pulse Ox
98.6 F 107 20 165/81 97
03/06/25 20:36 03/06/25 20:36 03/06/25 20:36 03/06/25 20:36 03/06/25 20:36
Last Documented Vital Signs
Temp Pulse Resp BP Pulse Ox
99 F 107 20 165/81 93
03/07/25 00:08 03/06/25 20:36 03/06/25 20:36 03/06/25 20:36 03/07/25 00:23
MDM/Problems Addressed
MDM/Problems Addressed:
Patient with rapidly progressing cellulitic changes, even during observation in ED. As such, especially involving left eye with significant swelling, patient will be admitted for IV antibiotics.
*Critical Care Note
Total Time (30-74mins, 75-104mins- exclusive of procedures): Not Applicable
ED Attending Note
-
Portions of this chart may have been created with voice recognition software.� Occasional wrong word or��sound alike� substitutions may have occurred due to the inherent limitations of voice recognition software.
Discharge Plan
Departure
Patient Disposition: Admit
Date of Disposition: 03/07/25
Time of Disposition: 00:24
Admit to: Med/Surg
Presentation/result/management discussed w/ accepting MD/DO: Hospitalist
Discharge Problem:
Cellulitis of face, Cellulitis, periorbital
Prescriptions:
No Action
amlodipine 5 MG tablet
5 mg PO DAILY
tamsulosin 0.4 MG capsule
0.4 mg PO DAILY
lisinopril 10 MG tablet
10 mg PO DAILY
aspirin 81 MG tablet,chewable
81 mg PO DAILY
ferrous sulfate [Feosol] 325 MG tablet
325 mg PO DAILY
cetirizine [Zyrtec] 10 mg Tablet
10 mg PO BID
atorvastatin 80 mg Tablet
80 mg PO DAILY
fluoxetine 40 mg Capsule
40 mg PO DAILY
acetaminophen [Tylenol Extra Strength] 500 mg Tablet
1,000 mg PO HS
potassium chloride [Klor-Con M20] 20 mEq Tablet,Er Particles/Crystals
40 meq PO BID Qty: 30 0RF
ciprofloxacin HCl 500 mg Tablet
250 mg PO [id number] PRN (Reason: for 3 days afte catheriner changes)
ammonium lactate 12 % Lotion
1 applic topical BID Qty: 400 0RF
Rx Instructions:
Right foot
acetaminophen [Tylenol Extra Strength] 500 mg Tablet
1,000 mg PO TIDPRN PRN (Reason: mild pain)
miconazole nitrate [Miconazorb AF] 2 % powder
1 applic topical BIDPRN PRN (Reason: fungal infection)
Referrals:
Tonya Andersen CRNP [Family Provider] -
Interventions
Interventions:
*Risk Screen - Suicide Last Done: 03/06/25 21:42
*General Assessment Last Done: 03/06/25 21:42
*Neglect/Abuse Screening Last Done: 03/06/25 21:42
*ED COVID-19 Vaccine History Last Done: 03/07/25 00:14
ED-Skin Assessment Last Done: 03/06/25 21:42
Discharge Date and Time
Print Language: MACANESE
[2025-03-06 23:59] LABS: % Basophils 0.8 % (0-2); % Eosinophils 0.5 % (0-6); % Immature Granulocytes 0.5 % (0-0.5); % Lymphocytes 6.8 % (20.5-51.1); % Neutrophils 81.4 % (42.2-75.2); Absolute Basophils 0.1 10^3/uL (0-0.2); Absolute Lymphocytes 0.5 10^3/uL (1.2-3.4); Absolute Monocytes 0.8 10^3/uL (0.1-0.6); Absolute Neutrophils 6.5 10^3/uL (1.4-6.5); Hemoglobin 13.2 g/dL (13.0-18.0); Mean Corp Hgb Conc. 33.8 g/dL (33.0-37.0); Mean Corpuscular Hgb 32.4 pg (27.0-31.0); Mean Corpuscular Volume 95.8 fL (80.0-94.0); Mean Platelet Volume 9.5 fL (7.4-10.4); Nucleated Red Blood Cells % 0 % (-); Platelet Count 216 10^3/uL (130-400); Red Blood Cell Count 4.07 10^6/uL (4.70-6.10); Red Cell Dist. Width 14.3 % (11.5-14.5)
[2025-03-07] VITALS (9 sets, daily range): BP systolic 120–165; BP diastolic 50–80; BMI 31.4; BMI 31.0
[2025-03-07 00:12] LABS: Chloride 108 mmol/L (98-107); Potassium 3.5 mmol/L (3.5-5.1); Sodium 140 mmol/L (135-145)
[2025-03-07 00:51] LABS: Blood Urea Nitrogen 8 mg/dl (9-20); Calcium 8.7 mg/dl (8.4-10.2); Carbon Dioxide 21 mmol/L (22-30); Estimated Creatinine Clearance 102 ml/min; Glucose 122 mg/dl (70-99); eGFR > 60.00
[2025-03-07] MEDS: VANCOCIN 540 MG IV (01:05)
--- NOTE | 2025-03-07 01:07 | HPS.HSE ---
Family Physician
-
Family Physician: ELZBIETA Jensen
Chief Complaint
-
Rash
History of Present Illness
This is a 79-year-old who has past medical history that is significant for CLL, history of CVA with residual right-sided weakness, chronic lymphedema, recurrent cellulitis of the lower extremities, urinary retention with as well as chronic
indwelling urinary catheter, hypothyroid, presenting with worsening redness over left foreheas and left eye which developed statin about 3 days ago.
Patient reports waking up and finding this lesion. Reports some pruritus. He reports burning pain as well as some sharp pain over his left eye. He denies any vision changes. He denies any foreign body sensation. He has not had any fevers or
chills. The rashes seem to spread since onset so he said come to the emergency department today.
While in the Emergency Department nurse found him to be hypoxic and placed him on 2 L nasal cannula with oxygen saturation of 93. He denies having any cough. He denies feeling short of breath at home. He reports that his baseline oxygen is around
98%. He denies having any chest pain or dyspnea on exertion. He has chronic lymphedema which he states is not changed. He saw his doctor in the morning who reported that the lower extremity is improving.
In the Emergency Department he he was afebrile, blood pressure was 165/80 pulse was 107 and is currently 93% on 2 L.
White count was normal and movement in place were normal. Electrolytes show 4 normal with BUN and creatinine normal.
Medical History
Past Medical History
Past Medical History: Reports Cancer (CLL in remission), CVA, HTN and Hypercholesterolemia
Additional Past Medical History:
BPH
Chronic urinary retention status post suprapubic cath
Past Surgical History: Reports Urological
Social History
Tobacco: Non-smoker
Alcohol: None
Drug: None
Personal:
Living: With Family
Employment: Retired
Family History
Family History: Not pertinent
Allergies / Home Medications
Allergies reflects when Allergies were last updated in [employer].
Home Medications with original date entered in [employer]
Allergy/Medication List:
Allergies
Allergy/AdvReac Type Severity Reaction Status Date / Time
No Known Allergies Allergy Verified 03/06/25 20:40
Home Medications
amlodipine 5 mg tablet 5 mg PO DAILY Blood pressure 08/01/21
aspirin 81 mg chewable tablet 81 mg PO DAILY Blood clot prevention/tx 08/01/21
lisinopril 10 mg tablet 10 mg PO DAILY Blood pressure 08/01/21
tamsulosin 0.4 mg capsule 0.4 mg PO DAILY Urinary issue 08/01/21
ferrous sulfate 325 mg (65 mg iron) tablet (Feosol) 325 mg PO DAILY Supplement 10/09/21
cetirizine 10 mg tablet (Zyrtec) 10 mg PO BID Allergies 06/08/22
atorvastatin 80 mg tablet 80 mg PO DAILY High Cholesterol 08/27/22
acetaminophen 500 mg tablet (Tylenol Extra Strength) 1,000 mg PO HS Pain 08/20/24
fluoxetine 40 mg capsule 40 mg PO DAILY Mental Health/Anxiety 08/20/24
potassium chloride 20 mEq tablet,extended release(part/cryst) (Klor-Con M) 40 meq (2 x 20 mEq) PO BID Supplement #30 tabs 08/28/24
ciprofloxacin HCl 500 mg tablet 250 mg PO [id number] PRN for 3 days afte catheriner changes 11/26/24
ammonium lactate 12 % lotion 1 applic topical BID #400 grams 11/29/24
acetaminophen 500 mg tablet (Tylenol Extra Strength) 1,000 mg PO TIDPRN PRN mild pain 03/06/25
miconazole nitrate 2 % topical powder (Miconazorb AF) 1 applic topical BIDPRN PRN fungal infection 03/06/25
Review of Systems
-
History Source: Patient
Constitutional: Reports No Symptoms
EENT: Reports No Symptoms
Respiratory: Reports No Symptoms
Cardiac: Reports No Symptoms
Abdomen/GI: Reports No Symptoms
: Reports No Symptoms
Musculoskeletal: Reports No Symptoms
Skin: Reports Rash
Neurological: Reports No Symptoms
Endocrine: Reports No Symptoms
Hematologic/Lymphatic: Reports No Symptoms
Psych: Reports No Symptoms
Physical Exam
Vital Signs
Vital Signs
Temp Pulse Resp BP Pulse Ox
99 F 107 20 165/81 93
03/07/25 00:08 03/06/25 20:36 03/06/25 20:36 03/06/25 20:36 03/07/25 00:23
Physical Exam
General: Well Developed, No Apparent Distress and Comfortable
HEENT: NormoCephalic, Anicteric, Moist mucous membranes, Atraumatic, PERRLA, [place] Conjunctivae and Other (forehead and eyelid rash noted)
Respiratory: Crackles (few basilar crackles)
Cardiac: S1/S2 and Regular Rhythm
Breast: Deferred by me
GI: Soft, Non Tender and Normal Bowel Sounds
Rectal: Deferred by Provider
Genito-urinary: Clear Urine and Naylor
Musculoskeletal: No Clubbing, No Cyanosis, Edema, Left Lower Extremity (trace) and Edema, Right Lower Extremity (2+)
Skin: Rash (erythematous rash over the left forehead appearing to terminate at midline. There are crusts at the midline and some early papules but no obvious vessicles. Tender to palpation. Edema over the eyelid. )
Neuro: Awake, AO x 3 and Nonfocal/grossly intact
Hematologic/Lymphatic: No Lymphadenopathy
Psych: Calm
Laboratory Results
-
03/06/25 23:52
03/06/25 23:52
Data Reviewed
-
Diagnostic Radiology: Image Personally Visualized and interpreted
Lab Data: Labs Reviewed by me
Old Records: Reviewed
Impression/Plan
-
IMPRESSION:
79-year-old with history of chronic lymphedema with recurrent right lower extremity cellulitis coming into the emergency department with a forehead rash that appears to affect the left side of the forehead and the eyelid with associated crusting and
some papules without vesicles. Will wear pruritic initially and now as he is aware of burning sensation. He has had no fevers or chills. He denies any vision changes. In the Emergency Department he was afebrile, hemodynamically stable and
without leukocytosis. Vision intact. No headache. No oral rash. Possible cellulitis but I also suspect that this patient has zoster.
PLAN:
1. Cellulitis / Zoster ophthalmicus
- admit to med/surg
- started on vancomycin IV, will continue
- d/w ID, will start acyclovir IV for now,
- ID to see in am and adjust medications
- Has chronic lymphedema of the R LE. Chronic erythema there but improved according to pt. No TTP.
- pain control
2. Hypoxia - Incidental finding of hypoxa per nurse. No h/o CHF. Denies SOB, CP, cough, fevers or chills. Denies tobacco and h/o COPD. No wheezing on exam. Basilar crackles noted.
- check xray showing interstitial scarring similar to prior (f/u official read), bnp is negative, covid is negative
- check d-dimer (has recent u/s negative for DVTs)
- supplemental oxygen for now.
- incentive spirometry
- check covid
3. Chronic lymphedema
- continue ammonium lactate, compression socks, elevation
- recent negative u/s
4. Urinary retention w/ chronic naylor
- continue tamsulosin
DVT PPX - lovenox sq
code status - full code
[2025-03-07 02:17] LABS: COVID-19 Antigen Negative (Negative)
[2025-03-07] MEDS: ZOVIRAX INJECTION 268.8 MG IV ×3 (03:20→18:02)
[2025-03-07 03:51] LABS: Hematocrit 37.5 % (39.0-52.0); Hemoglobin 12.8 g/dL (13.0-18.0); Mean Corp Hgb Conc. 34.1 g/dL (33.0-37.0); Mean Corpuscular Hgb 33.1 pg (27.0-31.0); Mean Corpuscular Volume 96.9 fL (80.0-94.0); Mean Platelet Volume 9.9 fL (7.4-10.4); Platelet Count 202 10^3/uL (130-400); Red Blood Cell Count 3.87 10^6/uL (4.70-6.10); Red Cell Dist. Width 14.3 % (11.5-14.5); White Blood Cell Count 6.4 10^3/uL (4.8-10.8)
[2025-03-07 04:15] LABS: Blood Urea Nitrogen 7 mg/dl (9-20); Calcium 8.5 mg/dl (8.4-10.2); Carbon Dioxide 23 mmol/L (22-30); Chloride 108 mmol/L (98-107); Estimated Creatinine Clearance 102 ml/min; Glucose 106 mg/dl (70-99); Potassium 3.5 mmol/L (3.5-5.1); Sodium 140 mmol/L (135-145); eGFR > 60.00
[2025-03-07 04:24] LABS: NT-proBNP 223 pg/ml
[2025-03-07] MEDS: TYLENOL 650 MG PO ×3 (05:43→16:27)
[2025-03-07] MEDS: LASIX 20 MG IV (05:44)
[2025-03-07 05:51] LABS: D-Dimer 1.22 ug/mlFEU (0.00-0.50)
--- NOTE | 2025-03-07 08:17 | VNURNOTE ---
Chart reviewed. Patient is current with [facility] nursing. Will continue to follow hospital course and DC plans.
[2025-03-07] MEDS: DESENEX/MITRAZOL/ZEASORB 1 APPLIC TOPICAL (08:53)
[2025-03-07] MEDS: PROZAC 40 MG PO (08:53)
[2025-03-07] MEDS: FEOSOL 325 MG PO (08:54)
[2025-03-07] MEDS: LOW STRENGTH ASPIRIN 81 MG PO (08:54)
[2025-03-07] MEDS: LIPITOR 80 MG PO (08:55)
[2025-03-07] MEDS: ZYRTEC 10 MG PO ×2 (08:55→20:05)
[2025-03-07] MEDS: KCL 40 MEQ PO ×2 (08:55→20:05)
[2025-03-07] MEDS: FLOMAX 0.4 MG PO (08:55)
[2025-03-07] MEDS: ZESTRIL 10 MG PO (08:55)
[2025-03-07] MEDS: NORVASC 5 MG PO (08:56)
--- NOTE | 2025-03-07 09:34 | PHA.VAN.IN ---
Assessment
- Assessment
Renal Function: Appears similar to baseline (0.8)
Maximum Temperature: 100.5
Concomitant Antimicrobials: Acyclovir
AUC Dosing Plan
- Dosing Variables
Dosing Weight (kg): 110.7
Dosing CrCl (ml/min): 102
Vd coefficient (L/kg): 0.6
- Empiric Dosing
Initial / Loading Dose: Vanco 2000mg load given 03/07/25 0105
Maintenance Regimen: Vanco 1500mg Q12H Starting 03/07/25 1800
Estimated AUC (mcg*h/mL): 541
Estimated Peak (mcg*h/mL): 34.4
Estimated Trough (mcg/ml): 13.5
Estimated Half Life (H): 7.78
- Monitoring
No levels ordered at this time: Consider in the next few days
Pharmacokinetics Vancomycin I
- -
Patient Age: 79
Patient Sex: Male
Vancomycin Day #: 1
Indication: Skin And Soft Tissue
Requesting Provider: Isac
Pertinent Antimicrobial Allergies:
No known drug allergies
Height / Weight:
Height 6 ft 2 in
Actual Weight 110.7 kg
Pertinent Past Medical History: Leukemia in remission, DVT, CVA
- Vital Signs / Lab Results
Temp Pulse Resp BP Pulse Ox
100.5 F H 97 20 134/72 89
03/07/25 05:43 03/07/25 08:56 03/06/25 20:36 03/07/25 08:56 03/07/25 03:15
Lab Results - Hematology
03/06/25 03/07/25
23:52 03:38
WBC 8.0 6.4
Lab Results - Chemistry
03/06/25 03/07/25
23:52 03:38
BUN 8 L 7 L
Creatinine 0.8 0.8
Estimated Creat Clear 102 102
--- NOTE | 2025-03-07 10:15 | W.PN.HOSP.TC ---
Today's Communication/Plan
-
Orbital CT pain
IV vancomycin and valacyclovir.
Assessment / Plan
Assessment / Plan
Impression:
Left periorbital cellulitis with vesicular rash
- Suspected zoster ophthalmicus with possibly superimposed bacterial infection.
Transient hypoxia noted upon admission to ED
Other conditions:
Chronic lower extremity lymphedema with cellulitis right greater than left.
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 (BPH status post TURP)
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
Carotid artery disease
Dyslipidemia.
Essential hypertension
History of CLL in remission.
Depression
Plan:
Left periorbital cellulitis with vesicular rash likely secondary to herpetic infection
Concern for bacterial superinfection
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
No reported HSV vaccination
Orbital CT: Preseptal versus orbital cellulitis
Valacyclovir
Vancomycin.
ID consultation
No clear indication for corticosteroid at this point.
Transient hypoxia upon admission.
Reported pulse ox of 89% on room air
Suspect positional pain
No clinical evidence of volume overload/CHF or bronchospasm
CT scan with no significant parenchymal infiltrates, negative for PE
Natruretic diabetes with normal limits
No prior history of CHF
Wean off oxygen as tolerates
Bilateral lower extremity lymphedema with chronic cellulitis
Continue wound care.
History of CVA
Residual right-sided paresis.
Continue aspirin, statin
Essential hypertension
Preadmission regimen including Norvasc, lisinopril.
BPH status post TURP.
Chronic urinary retention
Suprapubic catheter in place.
No clear indication for Flomax at this point
Anticipated Discharge: 24 - 48 hours
Subjective/Interval History
-
Date of Service: March 07, 2025
Objective Data
-
Labs:
Laboratory Results
03/06/25 03/07/25
23:52 03:38
WBC 8.0 6.4
Hgb 13.2 12.8 L
Hct 39.0 37.5 L
Plt Count 216 202
Sodium 140 140
Potassium 3.5 3.5
Chloride 108 H 108 H
Carbon Dioxide 21 L 23
BUN 8 L 7 L
Creatinine 0.8 0.8
Glucose 122 H 106 H
Calcium 8.7 8.5
Vital Signs:
Vital Signs
Temp Pulse Resp BP Pulse Ox
100.5 F H 97 20 134/72 89
03/07/25 05:43 03/07/25 08:56 03/06/25 20:36 03/07/25 08:56 03/07/25 03:15
I&O
03/06/25 03/07/25 03/08/25
06:59 06:59 06:59
Intake Total 250 / 250
Output Total 1700 / 1700 1900 / 1900
Balance -1450 / -1450 -1900 / -1900
Physical Exam
-
General: Well Developed and No Apparent Distress
HEENT: Normocephalic, Atraumatic, Moist Mucous Membranes and Other (Left periorbital cellulitis with significant eyelid edema and induration. Periorbital in the forehead vesicular rash.)
Respiratory: Clear to Auscultation
Cardiac: Regular Rhythm and S1/S2; Negative Murmur, Rub or Gallop
GI: Soft, Nontender, Nondistended and Normal Bowel Sounds; Negative Organomegaly
Rectal: Deferred by Provider
Genito-urinary: Other (Suprapubic catheter in place)
Musculoskeletal: No Clubbing, No Cyanosis and No Edema
Skin: Negative Rash
Neuro: Nonfocal/Grossly Intact
--- NOTE | 2025-03-07 10:16 | WOUNDNOTE ---
R DORSAL FOOT/GREAT TOE
--- NOTE | 2025-03-07 10:18 | WOUNDNOTE ---
MID FOREHEAD AND L EYE
--- NOTE | 2025-03-07 10:20 | WOUNDNOTE ---
WON RN note: Patient admitted with cellulitis of face and periorbital.
See H&P for complete history.
PMH: CVA, R sided weakness, HTN, urinary retention with supra pubic catheter, ambulatory dysfunction, lymphedema and chronic wound of R foot, follows with podiatry.
Wound Location and type/assessment: Patient last seen 11/28/24 for same chronic R foot wounds and lymphedema. Patient reports he was just at facility specialist office and said foot looks improved. No drainage from dorsal or lateral foot, crusty blevins scabbing.
Heels are intact and patient turned with assist, sacrum intact. Suspected shingles on face, eye edema, patient states it is painful. Dr. Jama at bedside and approved local wound care and compression to R foot/leg. I&D on consult.
Appetite: Good
Pressure redistribution devices in place: Recommend Accumax with turning schedule. pillow under calves.
Plan: Local wound care to R foot with matt wrap knee high applied, confirmed with Dr. Guillermo. Patient will continue to follow up with facility specialist as scheduled. JAZ Leon updated on the above and will follow as needed.
Note to case management of equipment requested for discharge: TBD
[2025-03-07] MEDS: LAC HYDRIN, AM LACTIN LOTION TOPICAL (11:56)
--- NOTE | 2025-03-07 12:07 | CON.ID ---
Consultation
-
Date/Time Consultation Requested: March 07, 2025 0500
Date/Time Consultation Performed: March 07, 2025
Requesting Provider: Dr. Live Jama
Performing Provider: Dr. Ayla Jerez
Reason for Consultation: Cellulitis versus zoster of face
Chief Complaint / Past History
Chief Complaint
Painful rash on face
History of Present Illness
History obtained from the patient as well as from his at bedside. 79-year-old male with history of CVA with residual right sided weakness, CLL status post right groin lymph node resection resulting in right lower extremity lymphedema who
presented to the hospital 03/06 due to left forehead, right eyelid swelling, and eye pain. noted vesicular lesions on his left forehead Thursday. The next day he developed redness on the forehead. Yesterday the redness spread and he woke up
with swelling of the eyelid. He saw his primary care physician who sent him to the hospital. Had low-grade fever last night. He was started on IV vancomycin and IV acyclovir. Today his states he has new blisters on his head. Patient
complains of pain. Complains of left eye pain. His eye is tearing. He is unable to open his left eyelid today. He is not up-to-date with his shingles vaccine.
Past History
Additional Past Medical History:
Hx CVA with right residual
HTN
Dyslipidemia
Hx CLL, treated
BPH, Chronic Suprapubic catheter
Carotid stenosis
RLE lymphedema since right LN resection
Ambulatory dysfunction
Additional Past Surgical History:
TURP
Suprapubic catheter
Carotid stenting
Cataract surgery
Allergy History:
No Known Allergies Allergy (Verified 03/06/25 20:40)
Medications Reviewed: Yes
Current Antibiotics:
Vancomycin
Acyclovir 940 mg IV q8
Social History
Tobacco: Former Smoker
Alcohol: None
Drug: None
Personal:
Living: With Family
Employment: Retired
Family History
Family History: Not Pertinent
Review of Systems
Review of Systems
General: Negative Chills or Change in Appetite
HEENT: Negative Stiff Neck or Pharyngitis
Cardiovascular: Negative Chest Pain or Dyspnea
Respiratory: Negative Dyspnea or Cough
Gasteroenterology: Negative Nausea, Vomiting or Diarrhea
Endocrine: Negative Weakness
Neurological: Negative Dizziness
All systems: All other systems were reviewed and were negative
Vital Signs
Temp Pulse Resp BP Pulse Ox
98.4 F 97 20 134/72 92
03/07/25 11:52 03/07/25 08:56 03/06/25 20:36 03/07/25 08:56 03/07/25 10:15
Selected Entries
03/07/25
05:43
Temp 100.5 F H
Physical Exam
Physical Exam
Constitutional: Acutely Ill
Head: Other (Left V1 dermatome with erythema, + clusters of vesicular lesions, + significant upper eyelid edema)
Eyes: Other (Unable to examine left orbit due to significant eternal edema)
Cardiovascular: Regular Rate and S1/S2
Pulmonary: Clear
Gastrointestinal: Soft, Non Tender, Non Distended and Normal Bowel Sounds
Extremities: Edema (RLE chronic)
Neurological: AO x 3; Negative Meningeal Signs
Lab / Diagnostic Study Results
03/07/25 03:38
03/07/25 03:38
Abs Immat Gran (auto) 0.0 10^3/uL (0-0.05) 03/06/25 23:52
Absolute Neuts (auto) 6.5 10^3/uL (1.4-6.5) 03/06/25 23:52
Absolute Lymphs (auto) 0.5 10^3/uL (1.2-3.4) L 03/06/25 23:52
Absolute Monos (auto) 0.8 10^3/uL (0.1-0.6) H 03/06/25 23:52
Absolute Basos (auto) 0.1 10^3/uL (0-0.2) 03/06/25 23:52
Immature Gran % 0.5 % (0-0.5) 03/06/25 23:52
Neutrophils % 81.4 % (42.2-75.2) H 03/06/25 23:52
Lymphocytes % 6.8 % (20.5-51.1) L 03/06/25 23:52
Monocytes % 10.0 % (1.7-9.3) H 03/06/25 23:52
Eosinophils % 0.5 % (0-6) 03/06/25 23:52
Basophils % 0.8 % (0-2) 03/06/25 23:52
Microbiology Results
Micro:
03/07/25 03:37 Blood Culture - Pending
Blood/Venous
03/07/25 02:01 MRSA Screen - Pending
Nose
03/06/25 23:52 Blood Culture - Pending
Blood/Venous
03/07/[address]: No evidence of central pulmonary embolism. Slightly prominent pulmonary vascularity and some minor groundglass opacification. Findings could represent changes of mild acute pulmonary edema.
Assessment / Plan
# Left Zoster ophthalmicus
# Fever due to Zoster
- eye pain concerning for intraocular involvement.
Consult ophtho
-Continue IV acyclovir 960mg IV q8h.
Monitor for nephrotoxicicty
- DC IV Vancomycin
- Follow WBC
- Airborne isolation.
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
Hx CVA with right residual
HTN
Dyslipidemia
Hx CLL, treated
BPH, Chronic Suprapubic catheter
Carotid stenosis
RLE lymphedema since right LN resection
Ambulatory dysfunction
Care Review
Plan reviewed with: Physician (Dr. Jama)
[2025-03-07] MEDS: DILAUDID 0.5 MG IV ×3 (13:22→23:50)
--- NOTE | 2025-03-07 14:49 | VNURNOTE ---
Chart reviewed. Patient is current with [facility] nursing. Will continue to follow hospital course and DC plans.
[2025-03-07] MEDS: LOVENOX 40 MG SC (18:19)
[2025-03-07] MEDS: LAC HYDRIN, AM LACTIN LOTION 1 APPLIC TOPICAL (21:29)
[2025-03-07] MEDS: TYLENOL 1000 MG PO (21:30)
[2025-03-07] MEDS: DESENEX/MITRAZOL/ZEASORB TOPICAL (21:43)
[2025-03-08] MEDS: ZOVIRAX INJECTION 268.8 MG IV ×3 (02:14→18:04)
[2025-03-08] MEDS: DESENEX/MITRAZOL/ZEASORB 1 APPLIC TOPICAL ×3 (03:55→21:30)
[2025-03-08] MEDS: DILAUDID 0.5 MG IV ×5 (04:00→23:31)
[2025-03-08 08:16] VITALS: BP 147/71
[2025-03-08] MEDS: LIPITOR 80 MG PO (08:31)
[2025-03-08] MEDS: PROZAC 40 MG PO (08:31)
[2025-03-08] MEDS: ZESTRIL 10 MG PO (08:34)
[2025-03-08] MEDS: LOW STRENGTH ASPIRIN 81 MG PO (08:34)
[2025-03-08] MEDS: FEOSOL 325 MG PO (08:34)
[2025-03-08] MEDS: FLOMAX 0.4 MG PO (08:34)
[2025-03-08] MEDS: KCL 40 MEQ PO ×2 (08:35→21:25)
[2025-03-08] MEDS: NORVASC 5 MG PO (08:35)
[2025-03-08] MEDS: ZYRTEC 10 MG PO ×2 (08:35→21:25)
[2025-03-08] MEDS: LAC HYDRIN, AM LACTIN LOTION 1 APPLIC TOPICAL ×2 (08:48→21:30)
[2025-03-08] MEDS: ZOFRAN 4 MG IV (08:56)
--- NOTE | 2025-03-08 12:37 | W.PN.HOSP.TC ---
Today's Communication/Plan
-
Continue valacyclovir
Assessment / Plan
Assessment / Plan
Impression:
Left periorbital cellulitis with vesicular rash
- Suspected zoster ophthalmicus with possibly superimposed bacterial infection.
Transient hypoxia noted upon admission to ED
Other conditions:
Chronic lower extremity lymphedema with cellulitis right greater than left.
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 (BPH status post TURP)
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
Carotid artery disease
Dyslipidemia.
Essential hypertension
History of CLL in remission.
Depression
Plan:
Left periorbital cellulitis with vesicular rash likely secondary to herpetic infection
Orbital CT: Moderate left periorbital soft tissue swelling and findings consistent with cellulitis. No focal fluid collection to suggest abscess. However, limited evaluation without IV contrast. New
Mild nonacute sinusitis.
Large left nasal polyp.
Discussed with ID. No clinical concerns for bacterial superinfection. Vancomycin discontinued at
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
No reported HSV vaccination
Continue valacyclovir.
Transient hypoxia upon admission.
Reported pulse ox of 89% on room air
Suspect positional pain
No clinical evidence of volume overload/CHF or bronchospasm
CT scan with no significant parenchymal infiltrates, negative for PE
Natruretic peptide within normal limits
No prior history of CHF
Weaned off oxygen
Bilateral lower extremity lymphedema with chronic cellulitis
Continue wound care.
History of CVA
Residual right-sided paresis.
Continue aspirin, statin
Essential hypertension
Preadmission regimen including Norvasc, lisinopril.
BPH status post TURP.
Chronic urinary retention
Suprapubic catheter in place.
No clear indication for Flomax at this point
Anticipated Discharge: 24 - 48 hours
Subjective/Interval History
-
Date of Service: March 08, 2025
Objective Data
-
Vital Signs:
Vital Signs
Temp Pulse Resp BP Pulse Ox
99.0 F 96 24 147/71 95
03/08/25 08:16 03/08/25 08:16 03/08/25 08:16 03/08/25 08:16 03/08/25 08:16
I&O
03/07/25 03/08/25 03/09/25
06:59 06:59 06:59
Intake Total 250 / 250 240 / 240 480 / 480
Output Total 1700 / 1700 2350 / 2350 1950 / 1950
Balance -1450 / -1450 -2110 / -2110 -1470 / -1470
Physical Exam
-
General: Well Developed and No Apparent Distress
HEENT: Normocephalic, Atraumatic, Moist Mucous Membranes and Other (Left periorbital cellulitis with significant eyelid edema and induration. Periorbital in the forehead vesicular rash.)
Respiratory: Clear to Auscultation
Cardiac: Regular Rhythm and S1/S2; Negative Murmur, Rub or Gallop
GI: Soft, Nontender, Nondistended and Normal Bowel Sounds; Negative Organomegaly
Rectal: Deferred by Provider
Genito-urinary: Other (Suprapubic catheter in place)
Musculoskeletal: No Clubbing, No Cyanosis and No Edema
Skin: Negative Rash
Neuro: Nonfocal/Grossly Intact
--- NOTE | 2025-03-08 13:44 | W.PN.ID1 ---
Date of Service
Date of Service: March 08, 2025
Today's Communication
Continue IV acyclovir.
Assessment / Plan
# Left Zoster ophthalmicus
# Fever - resolved
- eye pain concerning for intraocular involvement.
Consult ophtho pending
-Continue IV acyclovir 960mg IV q8h (d3)
Monitor for nephrotoxicity
- Continue Airborne isolation until all lesions crusted.
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
Hx CVA with right residual
HTN
Dyslipidemia
Hx CLL, treated
BPH, Chronic Suprapubic catheter
Carotid stenosis
RLE lymphedema since right LN resection
Ambulatory dysfunction
Chief Complaint
-: Other (Zoster)
Subjective / Review of Systems
Continues to have left eye pain.
Vital Signs / Physical Exam
Vital Signs
Vital Signs
Temp Pulse Resp BP Pulse Ox
99.0 F 96 24 147/71 95
03/08/25 08:16 03/08/25 08:16 03/08/25 08:16 03/08/25 08:16 03/08/25 08:16
Physical Exam
Constitutional: Acutely Ill
Head: Other (Right forehead to episcopal with erythema, clusters of vesicular lesions. Upper eye lid very edematous. )
Eyes: Other (Left eye limited exam - no erythema)
Cardiovascular: Regular Rate and S1/S2
Pulmonary: Clear
Gastrointestinal: Soft, Non Tender, Non Distended and Normal Bowel Sounds
Genito-Urinary: Negative CVA Tenderness
Extremities: Edema
Neurological: AO x 3
Objective Data
Lab Data
Lab Results
03/07/25 03:38
03/07/25 03:38
Estimated Creat Clear 102 ml/min 03/07/25 03:38
Most recent labs reviewed.
Micro Results:
03/07/25 02:01 MRSA Screen - Final
Nose No Methicillin Resistant Staphylococcus aureus isolated.
03/07/25 03:37 Blood Culture - Preliminary
Blood/Venous No Growth in 24 hours- Final report to follow
03/06/25 23:52 Blood Culture - Preliminary
Blood/Venous No Growth in 24 hours- Final report to follow
03/07/[address]: No evidence of central pulmonary embolism. Slightly prominent pulmonary vascularity and some minor groundglass opacification. Findings could represent changes of mild acute pulmonary edema.
03/07/25 CT Head/Orbits: Moderate left periorbital soft tissue swelling and findings consistent with cellulitis. No focal fluid collection to suggest abscess. However, limited evaluation without IV contrast.
Care Review
Plan reviewed with: Physician (Dr. Jama)
[2025-03-08] MEDS: ROXICODONE 5 MG PO (15:35)
[2025-03-08 15:43] VITALS: BP 137/62
[2025-03-08] MEDS: LOVENOX 40 MG SC (18:04)
[2025-03-08] MEDS: TYLENOL 1000 MG PO (21:25)
[2025-03-08 23:30] VITALS: BP 158/91
[2025-03-08 23:43] VITALS: BP 132/65
[2025-03-09] MEDS: ZOVIRAX INJECTION 268.8 MG IV ×2 (01:58→09:49)
[2025-03-09] MEDS: ROXICODONE 5 MG PO (01:59)
[2025-03-09] MEDS: DILAUDID 0.5 MG IV ×2 (03:53→08:04)
[2025-03-09 04:06] VITALS: BMI 31.3
[2025-03-09 06:09] LABS: % Basophils 0.9 % (0-2); % Eosinophils 2.9 % (0-6); % Immature Granulocytes 0.8 % (0-0.5); % Lymphocytes 13.1 % (20.5-51.1); % Monocytes 18.5 % (1.7-9.3); % Neutrophils 63.8 % (42.2-75.2); Absolute Basophils 0.1 10^3/uL (0-0.2); Absolute Eosinophils 0.2 10^3/uL (0-0.7); Absolute Immature Granulocytes 0.1 10^3/uL (0-0.05); Absolute Lymphocytes 0.9 10^3/uL (1.2-3.4); Absolute Monocytes 1.2 10^3/uL (0.1-0.6); Absolute Neutrophils 4.3 10^3/uL (1.4-6.5); Hematocrit 39.1 % (39.0-52.0); Hemoglobin 12.9 g/dL (13.0-18.0); Mean Corpuscular Hgb 32.2 pg (27.0-31.0); Mean Corpuscular Volume 97.5 fL (80.0-94.0); Mean Platelet Volume 9.7 fL (7.4-10.4); Nucleated Red Blood Cells % 0 % (-); Platelet Count 172 10^3/uL (130-400); Red Blood Cell Count 4.01 10^6/uL (4.70-6.10); Red Cell Dist. Width 14.2 % (11.5-14.5); White Blood Cell Count 6.7 10^3/uL (4.8-10.8)
[2025-03-09 06:16] LABS: Blood Urea Nitrogen 12 mg/dl (9-20); Carbon Dioxide 28 mmol/L (22-30); Chloride 105 mmol/L (98-107); Estimated Creatinine Clearance 68 ml/min; Glucose 108 mg/dl (70-99); Potassium 4.2 mmol/L (3.5-5.1); Sodium 142 mmol/L (135-145); eGFR > 60.00
[2025-03-09 07:18] VITALS: BP 143/79
[2025-03-09] MEDS: DESENEX/MITRAZOL/ZEASORB 1 APPLIC TOPICAL ×2 (07:52→21:19)
[2025-03-09] MEDS: NORVASC 5 MG PO (07:53)
[2025-03-09] MEDS: FLOMAX 0.4 MG PO (07:53)
[2025-03-09] MEDS: KCL 40 MEQ PO ×2 (07:53→21:15)
[2025-03-09] MEDS: LIPITOR 80 MG PO (07:54)
[2025-03-09] MEDS: LAC HYDRIN, AM LACTIN LOTION 1 APPLIC TOPICAL ×2 (07:54→21:19)
[2025-03-09] MEDS: LOW STRENGTH ASPIRIN 81 MG PO (07:54)
[2025-03-09] MEDS: PROZAC 40 MG PO (07:54)
[2025-03-09] MEDS: ZYRTEC 10 MG PO ×2 (07:54→21:16)
[2025-03-09] MEDS: FEOSOL 325 MG PO (07:54)
[2025-03-09] MEDS: ZESTRIL 10 MG PO (07:54)
--- NOTE | 2025-03-09 10:58 | CM ---
CM following re: discharge planning.
Reviewed pt's chart, met with pt.
Pt is a 79 year old male, admitted with primary dx of
Pt reports he resides in a ranc[place] with ramp entrance with spouse, son, DIL and 9 y/o grandson
Pt is non ambulatory, WC bound and pt stated he has been staying in bed all the time.
He is able to stand and pivot with a 1 person assist. R sided weakness, not able to propel. Requires feeding and personal care due to limited use of R arm/hands. Pt has a chronic suprapubic cath. Current with [facility].
Pt expressed his desire to return back home with resumptions of [facility] and family support.
[facility] liaison following.
PCP- Tonya Andersen
Pharmacy: - [facility]
D/C plan: home with resumptions of [facility] and family support.
CM will follow with discharge plan updates as hospitalization progresses
--- NOTE | 2025-03-09 11:23 | W.PN.ID1 ---
Date of Service
Date of Service: March 09, 2025
Today's Communication
Continue IV acyclovir.
Assessment / Plan
# Left Zoster ophthalmicus
# Fever - resolved
- eye pain concerning for intraocular involvement.
Difficulty with obtaining ophtho consult, as per hospitalist.
-Continue IV acyclovir IV q8h (d4)
Renal function has decreased.
Reduce IV acyclovir dose to 850m giV q8h.
Monitor for nephrotoxicity.
- Continue Airborne isolation until all lesions crusted.
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
Hx CVA with right residual
HTN
Dyslipidemia
Hx CLL, treated
BPH, Chronic Suprapubic catheter
Carotid stenosis
RLE lymphedema since right LN resection
Ambulatory dysfunction
Chief Complaint
-: Other (Zoster)
Subjective / Review of Systems
Left eye pain improved on narcotics.
Vital Signs / Physical Exam
Vital Signs
Vital Signs
Temp Pulse Resp BP Pulse Ox
97.9 F 72 18 143/79 97
03/09/25 07:18 03/09/25 07:54 03/09/25 07:18 03/09/25 07:54 03/09/25 07:18
Physical Exam
Constitutional: Comfortable
Head: Other (Right forehead to taoism with erythema, clusters of vesicular lesions, some crusting.)
Eyes: Other (Left periorbital edema decreased. Limited eye exam: conjunctiva without significant erythema)
Cardiovascular: Regular Rate and S1/S2
Pulmonary: Clear
Gastrointestinal: Soft, Non Tender, Non Distended and Normal Bowel Sounds
Genito-Urinary: Negative CVA Tenderness
Extremities: Edema
Neurological: AO x 3
Objective Data
Lab Data
Lab Results
03/09/25 05:32
03/09/25 05:32
Estimated Creat Clear 68 ml/min 03/09/25 05:32
Most recent labs reviewed.
Micro Results:
03/07/25 03:37 Blood Culture - Preliminary
Blood/Venous No Growth in 48 hours- Final report to follow
03/06/25 23:52 Blood Culture - Preliminary
Blood/Venous No Growth in 48 hours- Final report to follow
03/07/25 02:01 MRSA Screen - Final
Nose No Methicillin Resistant Staphylococcus aureus isolated.
03/07/[address]: No evidence of central pulmonary embolism. Slightly prominent pulmonary vascularity and some minor groundglass opacification. Findings could represent changes of mild acute pulmonary edema.
03/07/25 CT Head/Orbits: Moderate left periorbital soft tissue swelling and findings consistent with cellulitis. No focal fluid collection to suggest abscess. However, limited evaluation without IV contrast.
Care Review
Plan reviewed with: Physician (Dr. Santiago)
--- NOTE | 2025-03-09 11:48 | PTCARENOTE ---
Warm compress applied to pt's left eye, and dressing change complete on RLE wound per MD order. Pain is controlled at the moment. Call le within reach.
--- NOTE | 2025-03-09 12:55 | W.PN.HOSP.TC ---
Today's Communication/Plan
-
Continue with IV acyclovir
Add erythromycin ophthalmic ointment and Pred acetate eyedrops to the left eye.
Assessment / Plan
Assessment / Plan
Impression:
Left periorbital cellulitis
Left zoster ophthalmicus with possibly superimposed bacterial infection.
Transient hypoxia noted upon admission to ED
Other conditions:
Chronic lower extremity lymphedema with cellulitis right greater than left.
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 (BPH status post TURP)
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
Carotid artery disease
Dyslipidemia.
Essential hypertension
History of CLL in remission.
Depression
Plan:
Left periorbital cellulitis with vesicular rash likely secondary to herpetic infection
Orbital CT: Moderate left periorbital soft tissue swelling and findings consistent with cellulitis. No focal fluid collection to suggest abscess. However, limited evaluation without IV contrast. New
Mild nonacute sinusitis.
Large left nasal polyp.
No clinical concerns for bacterial superinfection. Vancomycin discontinued by ID
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
No reported HSV vaccination
Continue valacyclovir.
In view of thick viscous discharge may be his inability to keep the eyes open or superimposed infection will add erythromycin ointment.
Ophthalmology roofing contractor recommended adding Pred acetate eye drops 4 times a day as well.
In view of blurry vision ,call placed and left a msg to roofing contractor ophthalmology
Transient hypoxia upon admission.
Reported pulse ox of 89% on room air
Suspect positional pain
No clinical evidence of volume overload/CHF or bronchospasm
CT scan with no significant parenchymal infiltrates, negative for PE
Natruretic peptide within normal limits
No prior history of CHF
Weaned off oxygen. Remains on RA
Bilateral lower extremity lymphedema with chronic cellulitis
Continue wound care.
History of CVA
Residual right-sided paresis.
Continue aspirin, statin
Essential hypertension
Preadmission regimen including Norvasc, lisinopril.
BPH status post TURP.
Chronic urinary retention
Suprapubic catheter in place.
No clear indication for Flomax at this point
DW ID
Total time spent on today's encounter was 52 minutes which included time spent in counseling the patient/family regarding diagnosis and treatment plan as listed above, goals of care, and symptom management. Case was discussed with nursing staff,
specialists, and care coordinators/case management. All labs and imaging personally reviewed by me. Remainder the time spent in detailed review of previous records, lab data, imaging, and other medical provider documentation.
Anticipated Discharge: > 48 hours
Subjective/Interval History
-
Date of Service: March 09, 2025
Today his eyelid swelling is improved. Able to separate his eyes and see-through. Still with a lot of pain he says on his left face and the left eye. Is using IV narcotics.
Try to separate right eyelids-thick viscous discharge noted. Patient was able to see and read things on the white board-the nurses name and the PCT name. Was also able to read the month and date listed on the top. The distance probably about 8 to
10 feet. He says it is blurry though.
Objective Data
-
Labs:
Laboratory Results
03/09/25
05:32
WBC 6.7
Hgb 12.9 L
Hct 39.1
Plt Count 172
Sodium 142
Potassium 4.2
Chloride 105
Carbon Dioxide 28
BUN 12
Creatinine 1.2
Glucose 108 H
Calcium 8.0 L
Vital Signs:
Vital Signs
Temp Pulse Resp BP Pulse Ox
97.9 F 72 18 143/79 97
03/09/25 07:18 03/09/25 07:54 03/09/25 07:18 03/09/25 07:54 03/09/25 07:18
I&O
03/08/25 03/09/25 03/10/25
06:59 06:59 06:59
Intake Total 240 / 240 1476 / 1476
Output Total 2350 / 2350 4550 / 4550
Balance -2110 / -2110 -3074 / -3074
Review of Systems
-
Constitutional: Denies Fever
Respiratory: Denies Trouble Breathing
Cardiac: Denies Chest Pain
Abdomen/GI: Denies Abdominal Pain, Nausea or Vomiting
Physical Exam
-
General: Comfortable
HEENT: Moist Mucous Membranes and Other (Left ophthalmic division zoster noted. Scabbed lesions. Left eyelids swollen but is able to separate the eye. Thick viscous discharge noted. Hard to examine eye because of swelling of eyelids)
Respiratory: Non Labored Respirations; Negative Accessory Resp Muscle Use
Cardiac: Regular Rhythm and S1/S2
GI: Soft
Neuro: AO x 3 and No Motor Deficits; Negative Slurred Speech or Facial Droop
Psych: Calm; Negative Confused
Data Reviewed
-
Labs: Labs Reviewed by me
[2025-03-09] MEDS: PRED FORTE 1% EYE DROPS 1 DROP OPHTH ×3 (13:55→21:16)
[2025-03-09] MEDS: ERYTHROMYCIN 0.5% OPHTHALMIC OINTMENT 1 APPLIC OPHTH ×3 (13:55→21:17)
[2025-03-09 14:51] VITALS: BP 132/60
[2025-03-09] MEDS: TYLENOL 650 MG PO (15:06)
[2025-03-09] MEDS: ZOVIRAX INJECTION 267 MG IV (17:06)
[2025-03-09] MEDS: LOVENOX 40 MG SC (17:07)
[2025-03-09] MEDS: TYLENOL 1000 MG PO (21:16)
[2025-03-09 23:41] VITALS: BP 169/84
[2025-03-10] MEDS: ZOVIRAX INJECTION 267 MG IV ×3 (02:30→17:04)
[2025-03-10 07:24] VITALS: BP 106/70
[2025-03-10] MEDS: FLOMAX 0.4 MG PO (09:24)
[2025-03-10] MEDS: PRED FORTE 1% EYE DROPS 1 DROP OPHTH ×4 (09:24→21:56)
[2025-03-10] MEDS: KCL 40 MEQ PO ×2 (09:25→21:57)
[2025-03-10] MEDS: LOW STRENGTH ASPIRIN 81 MG PO (09:25)
[2025-03-10] MEDS: LIPITOR 80 MG PO (09:25)
[2025-03-10] MEDS: ZESTRIL 10 MG PO (09:25)
[2025-03-10] MEDS: FEOSOL 325 MG PO (09:25)
[2025-03-10] MEDS: PROZAC 40 MG PO (09:26)
[2025-03-10] MEDS: ERYTHROMYCIN 0.5% OPHTHALMIC OINTMENT 1 APPLIC OPHTH ×4 (09:26→21:56)
[2025-03-10] MEDS: ZYRTEC 10 MG PO ×2 (09:26→21:57)
[2025-03-10] MEDS: NORVASC 5 MG PO (09:27)
[2025-03-10] MEDS: LAC HYDRIN, AM LACTIN LOTION 1 APPLIC TOPICAL ×2 (09:34→22:01)
[2025-03-10] MEDS: DESENEX/MITRAZOL/ZEASORB 1 APPLIC TOPICAL ×2 (09:35→22:01)
[2025-03-10 09:54] LABS: Blood Urea Nitrogen 11 mg/dl (9-20); Calcium 8.5 mg/dl (8.4-10.2); Carbon Dioxide 26 mmol/L (22-30); Chloride 105 mmol/L (98-107); Estimated Creatinine Clearance 91 ml/min; Glucose 98 mg/dl (70-99); Potassium 3.8 mmol/L (3.5-5.1); Sodium 142 mmol/L (135-145); eGFR > 60.00
[2025-03-10] MEDS: MIRALAX 17 GRAMS PO (10:23)
--- NOTE | 2025-03-10 12:23 | W.PN.HOSP.TC ---
Today's Communication/Plan
-
CW IV acyclovir
DW ophthalmic EM and Pred eye drops
Assessment / Plan
Assessment / Plan
Impression:
Left periorbital cellulitis
Left zoster ophthalmicus with possibly superimposed bacterial infection.
Transient hypoxia noted upon admission to ED
Other conditions:
Chronic lower extremity lymphedema with cellulitis right greater than left.
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 (BPH status post TURP)
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
Carotid artery disease
Dyslipidemia.
Essential hypertension
History of CLL in remission.
Depression
Plan:
Left periorbital cellulitis with vesicular rash secondary to herpetic infection
Improving
Orbital CT: Moderate left periorbital soft tissue swelling and findings consistent with cellulitis. No focal fluid collection to suggest abscess. However, limited evaluation without IV contrast. New
Mild nonacute sinusitis.
Large left nasal polyp.
No clinical concerns for bacterial superinfection. Vancomycin discontinued by ID
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
No reported HSV vaccination
Continue acyclovir IV
In view of thick viscous discharge may be his inability to keep the eyes open or superimposed infection added erythromycin ointment.
Ophthalmology conservation coordinator recommended adding Pred acetate eye drops 4 times a day as well. Follow with her in office after DC. Discussed with her 03/09
Transient hypoxia upon admission.
Reported pulse ox of 89% on room air
Suspect positional pain
No clinical evidence of volume overload/CHF or bronchospasm
CT scan with no significant parenchymal infiltrates, negative for PE
Natruretic peptide within normal limits
No prior history of CHF
Weaned off oxygen. Remains on RA
Bilateral lower extremity lymphedema with chronic cellulitis
Continue wound care.
History of CVA
Residual right-sided paresis.
Continue aspirin, statin
Essential hypertension
Preadmission regimen including Norvasc, lisinopril.
BPH status post TURP.
Chronic urinary retention
Suprapubic catheter in place.
No clear indication for Flomax at this point
Anticipated Discharge: 24 - 48 hours
Subjective/Interval History
-
Date of Service: March 10, 2025
Feels improved will. Today he is denying any pain in the eye. His eyelid swelling has come down and is able to sleep through and does not see blurring with his vision.
No nausea vomiting.
No fever chills.
Objective Data
-
Labs:
Laboratory Results
03/10/25
08:59
Sodium 142
Potassium 3.8
Chloride 105
Carbon Dioxide 26
BUN 11
Creatinine 0.9
Glucose 98
Calcium 8.5
Vital Signs:
Vital Signs
Temp Pulse Resp BP Pulse Ox
97.8 F 92 18 152/88 95
03/10/25 07:24 03/10/25 09:27 03/10/25 07:24 03/10/25 09:27 03/10/25 07:24
I&O
03/09/25 03/10/25 03/11/25
06:59 06:59 06:59
Intake Total 1476 / 1476 3560 / 3560
Output Total 4550 / 4550 3000 / 3000 1999
Balance -3074 / -3074 560 / 560 -1999
Review of Systems
-
Constitutional: Denies Fever
EENT: Denies Sore Throat
Respiratory: Denies Trouble Breathing
Cardiac: Denies Chest Pain
Abdomen/GI: Denies Abdominal Pain, Nausea or Vomiting
Neuro: Denies Dizzy
Physical Exam
-
General: Comfortable
HEENT: Other (Less swelling of the eyelids on left ;scabbed VZV lesions; no conjuctivitis ; lessened eye discharge)
Respiratory: Non Labored Respirations; Negative Accessory Resp Muscle Use
Cardiac: Regular Rhythm and S1/S2
GI: Soft
Genito-urinary: Clear Urine and Supra Pubic Tube
Neuro: AO x 3; Negative No Motor Deficits (rt hemiparesis - from prior stroke)
Data Reviewed
-
Labs: Labs Reviewed by me
--- NOTE | 2025-03-10 12:37 | W.PN.ID1 ---
Date of Service
Date of Service: March 10, 2025
Today's Communication
Continue IV acyclovir.
At time of dc, transition to po valacyclovir 1000 mg po tid until seen by outpatient Ophtho. If no intraocular involvement, can dc valacyclovir.
Assessment / Plan
# Left V1 Zoster ophthalmicus
# Fever - resolved
- eye pain resolved
-Continue IV acyclovir IV q8h (d5)
Monitor for nephrotoxicity.
- At time of dc, transition to po valacyclovir 1000 mg po tid until seen by outpatient Ophtho. If no intraocular involvement, can dc valacyclovir.
- Continue Airborne isolation until all lesions crusted.
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
Hx CVA with right residual
HTN
Dyslipidemia
Hx CLL, treated
BPH, Chronic Suprapubic catheter
Carotid stenosis
RLE lymphedema since right LN resection
Ambulatory dysfunction
Chief Complaint
-: Other (Zoster)
Subjective / Review of Systems
No eye pain today. Denies vision loss.
Vital Signs / Physical Exam
Vital Signs
Vital Signs
Temp Pulse Resp BP Pulse Ox
97.8 F 92 18 152/88 95
03/10/25 07:24 03/10/25 09:27 03/10/25 07:24 03/10/25 09:27 03/10/25 07:24
Physical Exam
Constitutional: Comfortable
Head: Other (Right forehead to scientology with erythema, clusters of vesicular lesions, 50% crusted.)
Eyes: Other (Left periorbital edema decreased. Able to open eyes wider, conjunctiva without erythema, EOMI)
Cardiovascular: Regular Rate and S1/S2
Pulmonary: Clear
Gastrointestinal: Soft, Non Tender, Non Distended and Normal Bowel Sounds
Genito-Urinary: Negative CVA Tenderness
Extremities: Edema
Neurological: AO x 3
Objective Data
Lab Data
Lab Results
03/09/25 05:32
03/10/25 08:59
Estimated Creat Clear 91 ml/min 03/10/25 08:59
Most recent labs reviewed.
Micro Results:
03/07/25 03:37 Blood Culture - Preliminary
Blood/Venous No Growth in 72 hours- Final report to follow
03/06/25 23:52 Blood Culture - Preliminary
Blood/Venous No Growth in 72 hours- Final report to follow
03/07/25 02:01 MRSA Screen - Final
Nose No Methicillin Resistant Staphylococcus aureus isolated.
03/07/[address]: No evidence of central pulmonary embolism. Slightly prominent pulmonary vascularity and some minor groundglass opacification. Findings could represent changes of mild acute pulmonary edema.
03/07/25 CT Head/Orbits: Moderate left periorbital soft tissue swelling and findings consistent with cellulitis. No focal fluid collection to suggest abscess. However, limited evaluation without IV contrast.
Care Review
Plan reviewed with: Physician (Dr. Santiago)
[2025-03-10 15:19] VITALS: BP 157/67
[2025-03-10] MEDS: LOVENOX 40 MG SC (17:03)
[2025-03-10] MEDS: SENOKOT-S 1 TABLET PO (17:20)
[2025-03-10] MEDS: TYLENOL 1000 MG PO (21:56)
[2025-03-10 23:00] VITALS: BP 129/82
[2025-03-11] MEDS: ZOVIRAX INJECTION 267 MG IV ×3 (01:57→17:33)
[2025-03-11] MEDS: FLUSH (NSS) 2 FLUSH IV (01:58)
[2025-03-11 06:00] VITALS: BMI 29.8
[2025-03-11 07:26] VITALS: BP 137/74
[2025-03-11] MEDS: LIPITOR 80 MG PO (07:42)
[2025-03-11] MEDS: NORVASC 5 MG PO (07:42)
[2025-03-11] MEDS: FEOSOL 325 MG PO (07:42)
[2025-03-11] MEDS: ZESTRIL 10 MG PO (07:43)
[2025-03-11] MEDS: KCL 40 MEQ PO ×2 (07:43→20:32)
[2025-03-11] MEDS: LOW STRENGTH ASPIRIN 81 MG PO (07:43)
[2025-03-11] MEDS: FLOMAX 0.4 MG PO (07:43)
[2025-03-11] MEDS: PROZAC 40 MG PO (07:43)
[2025-03-11] MEDS: ZYRTEC 10 MG PO ×2 (07:43→20:31)
[2025-03-11] MEDS: PRED FORTE 1% EYE DROPS 1 DROP OPHTH ×4 (07:48→22:59)
[2025-03-11] MEDS: LAC HYDRIN, AM LACTIN LOTION 1 APPLIC TOPICAL ×2 (07:48→20:34)
[2025-03-11] MEDS: ERYTHROMYCIN 0.5% OPHTHALMIC OINTMENT 1 APPLIC OPHTH ×4 (07:48→22:59)
[2025-03-11] MEDS: DESENEX/MITRAZOL/ZEASORB 1 APPLIC TOPICAL ×2 (07:48→20:33)
[2025-03-11 09:02] LABS: Blood Urea Nitrogen 10 mg/dl (9-20); Calcium 8.4 mg/dl (8.4-10.2); Carbon Dioxide 23 mmol/L (22-30); Chloride 107 mmol/L (98-107); Estimated Creatinine Clearance 90 ml/min; Glucose 94 mg/dl (70-99); Sodium 141 mmol/L (135-145); eGFR > 60.00
--- NOTE | 2025-03-11 12:39 | W.PN.ID1 ---
Date of Service
Date of Service: March 11, 2025
Today's Communication
Continue antibiotics.
Assessment / Plan
# Left V1 Zoster ophthalmicus
# Fever - resolved
- eye pain resolved
-Continue IV acyclovir IV q8h (d#6)
Monitor for nephrotoxicity. Creatinine stable at present.
- At time of dc, transition to po valacyclovir 1000 mg po tid until seen by outpatient Ophtho. If no intraocular involvement, can dc valacyclovir.
- Continue Airborne isolation until all lesions crusted.
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
Hx CVA with right residual
HTN
Dyslipidemia
Hx CLL, treated
BPH, Chronic Suprapubic catheter
Carotid stenosis
RLE lymphedema since right LN resection
Ambulatory dysfunction
Chief Complaint
-: Other (Left V1 Zoster)
Subjective / Review of Systems
Patient seen and examined. Reports some improvement in left eye area swelling. Denies pain.
Review of Systems: No Fever and No Chills
Vital Signs / Physical Exam
Vital Signs
Vital Signs
Temp Pulse Resp BP Pulse Ox
98.2 F 62 18 137/74 96
03/11/25 07:26 03/11/25 07:43 03/11/25 07:26 03/11/25 07:43 03/11/25 07:26
Physical Exam
Constitutional: No Acute Distress, Comfortable and Non-toxic
Eyes: Pupils Equal, Pupils Round and Other (Left periorbital swelling with erythema. No open vesicles.)
Pulmonary: Non Labored
Gastrointestinal: Non Distended
Skin: Rash (Left forehead erythema with dried crust. No vesicles noted.)
Neurological: Awake and Alert
Psychological: Calm
Objective Data
Lab Data
Lab Results
03/09/25 05:32
03/11/25 08:00
Estimated Creat Clear 90 ml/min 03/11/25 08:00
Most recent labs reviewed.
Micro Results:
03/07/25 03:37 Blood Culture - Preliminary
Blood/Venous No Growth in 4 days- Final report to follow
03/06/25 23:52 Blood Culture - Preliminary
Blood/Venous No Growth in 4 days- Final report to follow
03/07/25 02:01 MRSA Screen - Final
Nose No Methicillin Resistant Staphylococcus aureus isolated.
03/07/[address]: No evidence of central pulmonary embolism. Slightly prominent pulmonary vascularity and some minor groundglass opacification. Findings could represent changes of mild acute pulmonary edema.
03/07/25 CT Head/Orbits: Moderate left periorbital soft tissue swelling and findings consistent with cellulitis. No focal fluid collection to suggest abscess. However, limited evaluation without IV contrast.
[2025-03-11 14:58] VITALS: BP 146/58
--- NOTE | 2025-03-11 15:49 | W.PN.HOSP.TC ---
Today's Communication/Plan
-
CW IV acyclovir and topical drops
PT/OT eval
DC in am if stable
Assessment / Plan
Assessment / Plan
Impression:
Left periorbital cellulitis
Left zoster ophthalmicus with possibly superimposed bacterial infection.
Transient hypoxia noted upon admission to ED
Other conditions:
Chronic lower extremity lymphedema with cellulitis right greater than left.
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 (BPH status post TURP)
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
Carotid artery disease
Dyslipidemia.
Essential hypertension
History of CLL in remission.
Depression
Plan:
Left periorbital cellulitis with vesicular rash secondary to herpetic infection
Improving further
Orbital CT: Moderate left periorbital soft tissue swelling and findings consistent with cellulitis. No focal fluid collection to suggest abscess. However, limited evaluation without IV contrast. New
Mild nonacute sinusitis.
Large left nasal polyp.
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
No reported HSV vaccination
Continue acyclovir IV
cw erythromycin ointment/Pred eye drops
Ophthalmology drafter refrigeration recommended adding Pred acetate eye drops 4 times a day as well. Follow with her in office after DC. Discussed with her 03/09
Transient hypoxia upon admission.
Reported pulse ox of 89% on room air
Suspect positional pain
No clinical evidence of volume overload/CHF or bronchospasm
CT scan with no significant parenchymal infiltrates, negative for PE
Natruretic peptide within normal limits
No prior history of CHF
Weaned off oxygen. Remains on RA
Bilateral lower extremity lymphedema with chronic cellulitis
Continue wound care.
History of CVA
Residual right-sided paresis.
Continue aspirin, statin
Essential hypertension
Preadmission regimen including Norvasc, lisinopril.
BPH status post TURP.
Chronic urinary retention
Suprapubic catheter in place.
No clear indication for Flomax at this point
PT/OT eval
DC planning
Anticipated Discharge: Within 24 hours
Subjective/Interval History
-
Date of Service: March 11, 2025
Feels improved
Much improved eye lid swelling and now able to keep the eye open and see.
Eye pain has resolved.
No fever
Objective Data
-
Labs:
Laboratory Results
03/11/25
08:00
Sodium 141
Potassium 4.0
Chloride 107
Carbon Dioxide 23
BUN 10
Creatinine 0.8
Glucose 94
Calcium 8.4
Vital Signs:
Vital Signs
Temp Pulse Resp BP Pulse Ox
97.9 F 51 17 146/58 96
03/11/25 14:58 03/11/25 14:58 03/11/25 14:58 03/11/25 14:58 03/11/25 14:58
I&O
03/10/25 03/11/25 03/12/25
06:59 06:59 06:59
Intake Total 3560 / 3560 1677 / 1677 267 / 267
Output Total 3000 / 3000 3500 / 3500 900 / 900
Balance 560 / 560 -1823 / -1823 -633 / -633
Review of Systems
-
Respiratory: Denies Trouble Breathing
Cardiac: Denies Chest Pain
Neuro: Denies Dizzy or Headache
Physical Exam
-
General: Comfortable
HEENT: Moist Mucous Membranes and Other (Further improvement in left eye lid swelling, no active vesicles in left V1 area, all lesions scabbed)
Respiratory: Non Labored Respirations; Negative Accessory Resp Muscle Use
Cardiac: Regular Rhythm and S1/S2
Neuro: Negative No Motor Deficits (rt hemiparesis as before)
Psych: Calm; Negative Confused
Data Reviewed
-
Labs: Labs Reviewed by me
[2025-03-11] MEDS: LOVENOX 40 MG SC (17:43)
[2025-03-11] MEDS: TYLENOL 1000 MG PO (22:57)
[2025-03-11 23:00] VITALS: BP 121/76
[2025-03-12] MEDS: ZOVIRAX INJECTION 267 MG IV ×3 (02:46→17:10)
[2025-03-12 06:00] VITALS: BMI 29.7
[2025-03-12 07:30] VITALS: BP 139/66
[2025-03-12 07:42] LABS: Blood Urea Nitrogen 9 mg/dl (9-20); Calcium 8.4 mg/dl (8.4-10.2); Carbon Dioxide 24 mmol/L (22-30); Chloride 109 mmol/L (98-107); Estimated Creatinine Clearance 103 ml/min; Glucose 96 mg/dl (70-99); Potassium 3.8 mmol/L (3.5-5.1); Sodium 141 mmol/L (135-145); eGFR > 60.00
[2025-03-12] MEDS: ZYRTEC 10 MG PO (08:11)
[2025-03-12] MEDS: LOW STRENGTH ASPIRIN 81 MG PO (08:11)
[2025-03-12] MEDS: PROZAC 40 MG PO (08:11)
[2025-03-12] MEDS: LIPITOR 80 MG PO (08:11)
[2025-03-12] MEDS: KCL 40 MEQ PO (08:11)
[2025-03-12] MEDS: FLOMAX 0.4 MG PO (08:11)
[2025-03-12] MEDS: FEOSOL 325 MG PO (08:12)
[2025-03-12] MEDS: ZESTRIL 10 MG PO (08:12)
[2025-03-12] MEDS: NORVASC 5 MG PO (08:12)
[2025-03-12] MEDS: ERYTHROMYCIN 0.5% OPHTHALMIC OINTMENT 1 APPLIC OPHTH ×3 (08:16→17:12)
[2025-03-12] MEDS: LAC HYDRIN, AM LACTIN LOTION 1 APPLIC TOPICAL (08:16)
[2025-03-12] MEDS: PRED FORTE 1% EYE DROPS 1 DROP OPHTH ×3 (08:16→17:12)
[2025-03-12] MEDS: DESENEX/MITRAZOL/ZEASORB 1 APPLIC TOPICAL (08:17)
[2025-03-12 12:30] VITALS: BP 114/82; PULSE 59; O2SAT 96
[2025-03-12 13:01] VITALS: BP 114/82; PULSE 59; O2SAT 96
[2025-03-12 13:33] VITALS: BP 114/82; PULSE 59; O2SAT 96
--- NOTE | 2025-03-12 14:06 | W.PN.HOSP.TC ---
Today's Communication/Plan
-
PT /OT eval
DC planning
Assessment / Plan
Assessment / Plan
Impression:
Left periorbital cellulitis
Left zoster ophthalmicus with possibly superimposed bacterial infection.
Transient hypoxia noted upon admission to ED
Other conditions:
Chronic lower extremity lymphedema with cellulitis right greater than left.
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 (BPH status post TURP)
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
Carotid artery disease
Dyslipidemia.
Essential hypertension
History of CLL in remission.
Depression
Plan:
Left periorbital cellulitis with vesicular rash secondary to herpetic infection
Continued improvment
Orbital CT: Moderate left periorbital soft tissue swelling and findings consistent with cellulitis. No focal fluid collection to suggest abscess. However, limited evaluation without IV contrast. New
Mild nonacute sinusitis.
Large left nasal polyp.
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
No reported HSV vaccination
Continue acyclovir IV per ID
cw erythromycin ointment/Pred eye drops
Ophthalmology documentation liaison recommended adding Pred acetate eye drops 4 times a day as well. Follow with her in office after DC. Discussed with her 03/09
Transient hypoxia upon admission.
Reported pulse ox of 89% on room air
Suspect positional pain
No clinical evidence of volume overload/CHF or bronchospasm
CT scan with no significant parenchymal infiltrates, negative for PE
Natruretic peptide within normal limits
No prior history of CHF
Weaned off oxygen. Remains on RA
Bilateral lower extremity lymphedema with chronic cellulitis
Continue wound care.
History of CVA
Residual right-sided paresis.
Continue aspirin, statin
Essential hypertension
Preadmission regimen including Norvasc, lisinopril.
BPH status post TURP.
Chronic urinary retention
Suprapubic catheter in place.
No clear indication for Flomax at this point
PT/OT eval and depending on it dc home
Anticipated Discharge: Today
Subjective/Interval History
-
Date of Service: March 12, 2025
Feels much improved. No eye pain. Denies headache today.
Much improved eyelid swelling and able to see through the eyelids.
No nausea vomiting.
Looking forward for discharge.
Objective Data
-
Labs:
Laboratory Results
03/12/25
06:52
Sodium 141
Potassium 3.8
Chloride 109 H
Carbon Dioxide 24
BUN 9
Creatinine 0.7
Glucose 96
Calcium 8.4
Vital Signs:
Vital Signs
Temp Pulse Resp BP Pulse Ox
98.1 F 86 18 139/66 93
03/12/25 07:30 03/12/25 08:12 03/12/25 07:30 03/12/25 08:12 03/12/25 07:30
I&O
03/11/25 03/12/25 03/13/25
06:59 06:59 06:59
Intake Total 1677 / 1677 1923 / 192
Output Total 3500 / 3500 2500 / 2500 200 / 200
Balance -1823 / -1823 -576 / -576 -200 / -200
Review of Systems
-
Constitutional: Denies Fever or Chills
EENT: Denies Sore Throat
Respiratory: Denies Cough or Trouble Breathing
Cardiac: Denies Chest Pain
Neuro: Denies Dizzy
Physical Exam
-
General: No Apparent Distress
HEENT: Moist Mucous Membranes and Other (No active vesicles in region of VZ rash; further improved eye lid swelling)
Respiratory: Clear to Auscultation
Cardiac: Regular Rhythm and S1/S2
GI: Soft, Nontender, Nondistended and Normal Bowel Sounds
Neuro: AO x 3; Negative No Motor Deficits (rt hemiparesis)
Data Reviewed
-
Labs: Labs Reviewed by me
[2025-03-12 16:00] VITALS: BP 119/58
[2025-03-12] MEDS: LOVENOX SC (17:10)
== END 2025-03-12 18:25 | disposition home health service (06) | DRG 603 ==
LOC: 3 WEST ACU 02:01
PROVIDERS: Internal Medicine; ADMITTING PHYSICIAN Internal Medicine; ATTENDING PHYSICIAN Internal Medicine; EMERGENCY PHYSICIAN Emergency Medicine; FAMILY PHYSICIAN Nurse Practitioner; OTHER PHYSICIAN Internal Medicine Infectious Disease
DX: L03.213 Periorbital cellulitis (principal); B02.30 Zoster ocular disease, unspecified; L03.116 Cellulitis of left lower limb; L03.115 Cellulitis of right lower limb; I69.351 Hemiplegia and hemiparesis following cerebral infarction affecting right dominant side; C91.11 Chronic lymphocytic leukemia of B-cell type in remission; D84.81 Immunodeficiency due to conditions classified elsewhere; I89.0 Lymphedema, not elsewhere classified; R33.8 Other retention of urine; E03.9 Hypothyroidism, unspecified; E78.00 Pure hypercholesterolemia, unspecified; I10 Essential (primary) hypertension; F32.A Depression, unspecified; R09.02 Hypoxemia; I69.320 Aphasia following cerebral infarction; Z79.82 Long term (current) use of aspirin; Z79.899 Other long term (current) drug therapy; Z11.52 Encounter for screening for COVID-19; Z86.14 Personal history of Methicillin resistant Staphylococcus aureus infection; Z95.828 Presence of other vascular implants and grafts; Z87.891 Personal history of nicotine dependence; Z93.59 Other cystostomy status
CPT/HCPCS: 70480; 71046; 71275; 73502; 80048; 83880; 85025; 85027; 85379; 87040; 87070; 87811; 96374; 97163; 97167; 99285; Q9967

== ENCOUNTER 2025-03-30 01:57 | Emergency (ER) | payer MEDICARE, OTHER, SELFPAY ==
[2025-03-30 02:00] VITALS: BMI 30.5
[2025-03-30 02:03] VITALS: BP 134/92
[2025-03-30 03:00] VITALS: BP 141/84
--- NOTE | 2025-03-30 03:28 | ED.GENMED ---
History of Present Illness
General
Chief Complaint: Eye Problems
Source: patient and family
Exam Limitations: none
Time Seen by Provider: 03/30/25 02:03
Nursing documentation reviewed up to this point in time: agreed with
History of Present Illness
History of Present Illness:
79-year-old male presenting to the emergency department today with concerns of difficulty seeing out of the left eye. Diagnosed with shingles ophthalmicus a few weeks ago. Has been on treatment and following up with ophthalmology. Trouble seeing
over the past few days has not seen ophthalmology about it. Denies any worsening pain fevers
Past History
Past History
ED Past Medical History: Cancer (CLL), CVA (With right sided weakness), HTN, Hypercholesterolemia, Hypothyroidism, Psychiatric (Depression) and Other (MRSA infection, Aphasia, Left carotid stenosis, Urinary retention, )
ED Past Surgical History: Orthopedic (Right knee surgery), Urological (Suprapubic catheter) and Other (cataracts, Hernia); Negative Cardiac
Social History
Tobacco: Former smoker
Alcohol: None
Drug: None
Personal:
Living: with family
Employment: Retired
Family History
Family History: Other (Noncontributory)
Review of Systems
Review of Systems
Allergies reviewed?: Yes
All Other Systems: ROS reviewed and negative except as documented in HPI and ROS
Phy Exam
Physical Exam
Physical Exam:
GENERAL: Alert , in no apparent distress
EYE: Swelling to the soft tissue surrounding the left eye normal pupil reaction normal extraocular movements. No fluorescein uptake to the anterior eye. Normal eye pressures of 19 with multiple eye pressure readings, 20/30 vision bilaterally
pupils equal and reactive
NECK: Supple, no significant adenopathy.
ENT: o/p clr, mmm.
CARDIAC: Regular rate and rhythm .
LUNGS: Clear breath sounds bilaterally, no acute respiratory distress, no wheezes/rales/rhonchi
ABDOMEN: Soft, without focal tenderness, no r/g, no cvat
NEUROLOGICAL: Alert and oriented, no focal neuro deficits
SKIN: Warm and dry, skin intact.
MUSCULOSKELETAL: No edema, well perfused.
PSYCH: Normal and appropriate interaction.
Course
Orders/Labs/Results
Orders:
Orders
03/30/25 02:52
Tetracaine HCl [Tetracaine 0.5% Ophthalmic Solution] 1 drop .ROUTE .STK-MED ONE
03/30/25 02:54
Fluorescein Sodium [Ful-Radha] 2 mg .ROUTE .STK-MED ONE
03/30/25 03:04
Tetracaine HCl [Tetracaine 0.5% Ophthalmic Solution] 1 drop .ROUTE .STK-MED ONE
Vital Signs
Initial and Last Documented VS:
Initial Vital Signs
Temp
97.0 F
03/30/25 02:00
Last Documented Vital Signs
Temp Pulse Resp Pulse Ox
97.0 F 75 19 96
03/30/25 02:00 03/30/25 02:03 03/30/25 02:03 03/30/25 02:03
MDM/Problems Addressed
MDM/Problems Addressed:
79-year-old male presenting to the emergency department today with concerns of difficulty seeing out of the left eye. Diagnosed with herpes ophthalmicus a few weeks ago. Has been on treatments. Here there is some swelling of the eye which his
family and himself claimed that is much improved over the past few weeks. No fevers no systemic symptoms. When the eye is opened he does have normal vision bilaterally. Normal eye pressure and no signs of corneal injury or ulcer with fluorescein
exam. Advised for close ophtho follow-up return precautions given.
*Critical Care Note
Total Time (30-74mins, 75-104mins- exclusive of procedures): Not Applicable
ED Attending Note
-
Portions of this chart may have been created with voice recognition software.� Occasional wrong word or��sound alike� substitutions may have occurred due to the inherent limitations of voice recognition software.
Discharge Plan
Departure
Patient Disposition: Home (Routine Discharge)
Date of Disposition: 03/30/25
Time of Disposition: 03:30
Patient with high blood pressure during this ER visit?: No
Condition: Good
Covid-19: Not Applicable
Discharge Problem:
Change in vision
Prescriptions:
No Action
amlodipine 5 MG tablet
5 mg PO DAILY
tamsulosin 0.4 MG capsule
0.4 mg PO DAILY
lisinopril 10 MG tablet
10 mg PO DAILY
aspirin 81 MG tablet,chewable
81 mg PO DAILY
ferrous sulfate [Feosol] 325 MG tablet
325 mg PO DAILY
cetirizine [Zyrtec] 10 mg Tablet
10 mg PO BID
atorvastatin 80 mg Tablet
80 mg PO DAILY
fluoxetine 40 mg Capsule
40 mg PO DAILY
potassium chloride [Klor-Con M20] 20 mEq Tablet,Er Particles/Crystals
40 meq PO BID Qty: 30 0RF
ciprofloxacin HCl 500 mg Tablet
250 mg PO [id number] PRN (Reason: for 3 days afte catheriner changes)
ammonium lactate 12 % Lotion
1 applic topical BID Qty: 400 0RF
Rx Instructions:
Right foot
acetaminophen [Tylenol Extra Strength] 500 mg Tablet
1,000 mg PO TIDPRN PRN (Reason: mild pain)
miconazole nitrate [Miconazorb AF] 2 % powder
1 applic topical BIDPRN PRN (Reason: fungal infection)
valacyclovir 1 gram tablet
1,000 mg PO TID Qty: 15 0RF
Rx Instructions:
Till seen by ophthalmology and if no need from them discontinue further
erythromycin 5 mg/gram (0.5 %) Ointment
1 cm ophthalmic (eye) QID Qty: 3.5 0RF
Rx Instructions:
till seen by ophthalmology and continue further if needed by them
prednisolone acetate 1 % Drops,Suspension
1 drp ophthalmic (eye) QID Qty: 15 0RF
Rx Instructions:
till seen by ophthalmology and continue further if needed by them
Referrals:
Tonya Andersen CRNP [Family Provider] -
Activity Restrictions/Additional Instructions:
You came with concerns of vision of your left eye. Here you had a reassuring assessment. Please follow-up closely with the sub plant manager and call them first thing in the morning today. Return for any worsening, new or concerning symptoms.
Interventions
Interventions:
*Risk Screen - Suicide Last Done: 03/30/25 02:00
*General Assessment Last Done: 03/30/25 02:00
*Neglect/Abuse Screening Last Done: 03/30/25 02:00
*ED- Fall Risk Assessment Last Done: 03/30/25 02:00
*ED COVID-19 Vaccine History Last Done: 03/30/25 02:00
ED-Skin Assessment Last Done: 03/30/25 02:00
Discharge Date and Time
Print Language: [id number]
== END 2025-03-30 03:44 | disposition home or self-care (01) ==
LOC: EMR 01:57
PROVIDERS: EMERGENCY PHYSICIAN Emergency Medicine; FAMILY PHYSICIAN Nurse Practitioner
DX: H53.8 Other visual disturbances (principal); E78.00 Pure hypercholesterolemia, unspecified; I10 Essential (primary) hypertension; E03.9 Hypothyroidism, unspecified; I69.951 Hemiplegia and hemiparesis following unspecified cerebrovascular disease affecting right dominant side; Z85.6 Personal history of leukemia; Z87.891 Personal history of nicotine dependence; Z86.19 Personal history of other infectious and parasitic diseases
CPT/HCPCS: 99283